=== PATIENT | female | born 1955 | race African-American/Black ===

== ENCOUNTER 2019-05-29 15:05 | Emergency (ER) | payer OTHER ==
[2019-05-29 15:22] VITALS: BP 120/70; BMI 32.4
[2019-05-29] MEDS ORDERED: ALBUTEROL SO4 HFA INHALER IH ONE ×2 (15:52→16:19)
[2019-05-29] MEDS ORDERED: methylPREDNISolone NA SUCC 125 MG/2 ML VIAL IVPB ONE (15:54)
[2019-05-29 16:05] VITALS: PULSE 96
[2019-05-29] MEDS ORDERED: methylPREDNISolone NA SUCC 125 MG/2 ML VIAL ONE (16:19)
[2019-05-29 16:34] LABS: BASO % 0.8 % (0-2.0); EOS % 1.4 % (0-4.5); HEMATOCRIT 32.3 % (32.4-45.2); HEMOGLOBIN 10.5 GM/dL (10.7-15.3); LYMPH % 13.7 % (8-40); MCH 30.6 pg (25.7-33.7); MCHC 32.4 g/dl (32.0-36.0); MEAN CELL VOLUME 94.3 fl (80-96); MEAN PLT VOLUME 8.5 fl (7.5-11.1); MONO % 5.1 % (3.8-10.2); PLATELET COUNT 240 K/MM3 (134-434); RBC 3.42 M/mm3 (3.60-5.2); RDW 13.7 % (11.6-15.6); WHITE BLOOD COUNT 11.7 K/mm3 (4.0-10.0)
[2019-05-29] MEDS ORDERED: ALBUTEROL SO4 2.5/IPRATROPIUM 0.5 INH SOL 3 ML VIAL.NEB. NEB ONE (16:43)
[2019-05-29 17:14] LABS: ALBUMIN 3.4 g/dl (3.4-5.0); ALK PHOS 92 U/L (45-117); ANION GAP 8 MMOL/L (8-16); BILIRUBIN,TOTAL 0.6 mg/dL (0.2-1); CALCIUM 9.3 mg/dL (8.5-10.1); CHLORIDE 108 mmol/L (98-107); CO2 25 mmol/L (21-32); CREATININE 1.4 mg/dL (0.55-1.3); GLUCOSE,RANDOM 102 mg/dL (74-106); POTASSIUM 5.5 mmol/L (3.5-5.1); SGOT/AST 31 U/L (15-37); SGPT/ALT 15 U/L (13-61); SODIUM 141 mmol/L (136-145); TOT PROT 7.4 g/dl (6.4-8.2)
[2019-05-29] MEDS ORDERED: ACETAMINOPHEN 325 MG TABLET (FP) ONE (18:32)
[2019-05-29] MEDS ORDERED: ACETAMINOPHEN 325 MG TABLET (FP) PO ONE (18:40)
[2019-05-29 18:41] VITALS: TEMP 100.2
== END 2019-05-29 22:07 | disposition home or self-care (01) ==
LOC: JER 15:05
PROC: 3E033GC Introduction of Other Therapeutic Substance into Peripheral Vein, Percutaneous Approach (ICD-10-PCS; principal; 2019-05-29)
PROC: 3E0F7GC Introduction of Other Therapeutic Substance into Respiratory Tract, Via Natural or Artificial Opening (ICD-10-PCS; principal; 2019-05-29)
DX: J44.1 Chronic obstructive pulmonary disease with (acute) exacerbation (principal)
CPT/HCPCS: 36415; 71045-TC-FY; 80053; 82550; 82553; 82962; 84484; 85025; 93005; 93010; 96374; 99285-25

== ENCOUNTER 2019-08-12 23:09 | Inpatient (IN) | payer OTHER ==
[2019-08-12] MEDS ORDERED: ACETAMINOPHEN 1000 MG/100 ML VIAL (NON FORMULARY) IVPB ONE (23:16)
[2019-08-12 23:24] VITALS: BMI 31.1
--- NOTE | 2019-08-12 23:30 | PDOC ---
Attending Attestation - Resident Resident Name: Elias Leon - ED Attending Attestation I have performed the following: I have examined & evaluated the patient, The case was reviewed & discussed with the resident, I agree w/resident's findings & plan - HPI HPI: 08/12/19 23:16 see resident hpi - Physicial Exam PE: 08/12/19 23:16 see resident exam - Critical Care Time Total Critical Care Time: 45 Critical Care Statement: The care of this patient involved high complexity decision making to prevent further life threatening deterioration of the patient's condition and/or to evaluate & treat vital organ system(s) failure or risk of failure. - Medical Decision Making 08/12/19 23:17 63[facility]-old [facility] with history of COPD and CHF with increasing shortness of breath requiring CPAP and route as well as Decadron 10 mg and a DuoNeb with minimal improvement We will proceed with CHF/COPD work-up as well as evaluation for infectious cause Will transfer to [facility] and plan for admission to inpatient service for further evaluation Discharge - Discharge Information Problems reviewed: Yes Clinical Impression/Diagnosis: Acute and chronic respiratory failure with hypoxia - Follow up/Referral Referrals: Fritz Chatterjee PHA [Primary Care Provider] - - Patient Discharge Instructions - Post Discharge Activity
--- NOTE | 2019-08-12 23:48 | PDOC ---
History of Present Illness - General Chief Complaint: Shortness of Breath Stated Complaint: SHORTNESS OF BREATH Time Seen by Provider: 08/12/19 23:16 History Source: Patient, EMS, Old Records Exam Limitations: No Limitations - History of Present Illness Initial Comments: 08/12/19 23:43 Keira Cruz is a 63F with PMH asthma, COPD, CHF, HTN, HLD presenting from [facility] with acute onset SOB and wheezing. Sent from [place] for SOB and hypoxia, found to be wheezing by EMS, given 1x Decadron and 2x Combivents in ambulance. Has not been getting home Lasix due to hypotension in [place]. Denies any fever, chest pain, abd pain, urinary sx, N/V/C/D. Has non-productive cough. No other covid-19 sx but from [place]. Was otherwise feeling okay yesterday. Past History - Medical History Allergies/Adverse Reactions: Allergies Allergy/AdvReac Type Severity Reaction Status Date / Time No Known Allergies Allergy Verified 08/12/19 23:24 Home Medications: Ambulatory Orders Baclofen 10 mg PO TID 05/29/19 Budesonide/Formeterol Fumarate [SYMBICORT 160/4.5mcg -] 2 inh PO BID 05/29/19 Diltiazem HCl [Diltiazem 24Hr ER (Cd)] 120 mg PO DAILY 05/29/19 Ergocalciferol (Vitamin D2) [Vitamin D2] 50,000 unit PO WEEKLY 05/29/19 Gabapentin [Neurontin] 600 mg PO TID 05/29/19 Ipratropium 0.02% Nebulizer [Atrovent 0.02% Nebulizer -] 1 neb NEB Q4H PRN 05/29/19 Lisinopril [Prinivil -] 40 mg PO DAILY 05/29/19 Melatonin 5 mg PO HS 05/29/19 Polyethylene Glycol 3350 [Miralax 119 gm Btl -] 17 gm PO DAILY 05/29/19 traZODone HCL [Trazodone HCl] 50 mg PO HS 05/29/19 Acetaminophen [Tylenol .Regular Strength -] 650 mg PO Q6H PRN tablet 06/09/19 Tiotropium [place] [Spiriva Respimat] 2 puff IH DAILY inhaler 06/09/19 Atorvastatin Ca [Lipitor] 20 mg PO HS 08/13/19 Furosemide 40 mg PO DAILY 08/13/19 Guaifenesin [Glenda-Tussin] 100 mg PO TID PRN 08/13/19 Insulin Glargine,Hum.rec.anlog [Basaglar Kwikpen U-100] 22 unit SQ DAILY 08/13/19 Insulin Lispro [Admelog Solostar] 100 unit SQ ASDIR 08/13/19 Lidocaine 5% Patch [Lidoderm Patch -] 1 patch TP DAILY 08/13/19 Naproxen 500 mg PO BID PRN 08/13/19 Sevelamer Carbonate [Renvela] 800 mg PO AC 08/13/19 Tramadol HCl 50 mg PO TID PRN 08/13/19 Asthma: Yes COPD: Yes Diabetes: Yes GI Disorders: Yes (cosntipation) Disorders: Yes (renal osteodystrophy) HTN: Yes Hypercholesterolemia: Yes Psychiatric Problems: Yes (major depressive behavior/imsomnia/nicotine dependence) - Psycho-Social/Smoking History Smoking History: Never smoked Have you smoked in the past 12 months: No - Substance Abuse Hx (Audit-C & DAST Scrn) How often the patient has a drink containing alcohol: Never Score: In Men: 4 or > Positive; In Women: 3 or > Positive: 0 Screen Result (Pos requires Nsg. Audit-10AR): Negative In the last yr the pt used illegal drug/Rx for NonMed reason: No Score: Yes response is considered Positive: 0 Screen Result (Positive result requires Nsg. DAST-10): Negative Review of Systems - Review of Systems Able to Perform ROS?: Yes Is the patient limited Mongolian proficient: Yes Constitutional: No: Chills, Fever HEENTM: No: Symptoms Reported Respiratory: Yes: Cough, Shortness of Breath, SOB with Exertion, SOB at Rest, Wheezing Cardiac (ROS): No: Chest Pain, Lightheadedness, Palpitations, Syncope ABD/GI: No: Constipated, Diarrhea, Nausea, Poor Appetite, Poor Fluid Intake, Vomiting : No: Symptoms Reported Musculoskeletal: No: Symptoms Reported Integumentary: No: Symptoms Reported Neurological: No: Symptoms reported Endocrine: No: Symptoms Reported Hematologic/Lymphatic: No: Symptoms Reported All Other Systems: Reviewed and Negative *Physical Exam - Vital Signs Last Vital Signs Temp Pulse Resp BP Pulse Ox 98.1 F 115 H 17 104/70 99 07/07/20 23:10 08/12/19 23:10 08/12/19 23:10 08/12/19 23:10 08/12/19 23:10 - Physical Exam General Appearance: Yes: Nourished, Appropriately Dressed, Moderate Distress, Obese HEENT: positive: EOMI, JAIME, Normal Voice, Symmetrical, Pharynx Normal. negative: Scleral Icterus (R), Scleral Icterus (L), Pharyngeal Erythema, To nsillar Exudate, Excessive drooling Neck: positive: Trachea midline, Normal Thyroid, Rigid, Supple. negative: Tender, Lymphadenopathy (R), Lymphadenopathy (L), Tender lateral, Tender midline Respiratory/Chest: positive: Labored Respiration, Rapid RR, Wheezing (end expiratory all andino). negative: Chest Tender, Lungs Clear, Respiratory Distress, Accessory Muscle Use Cardiovascular: positive: Regular Rhythm, Tachycardia. negative: Murmur, Irregularly Irregular Gastrointestinal/Abdominal: positive: Normal Bowel Sounds, Soft, Protuberent. negative: Tender, Organomegaly, Tenderness, Hernia Musculoskeletal: positive: Normal Inspection. negative: CVA Tenderness, CVA T enderness (R), CVA Tenderness (L), Decreased Range of Motion Extremity: positive: Normal Capillary Refill, Normal Range of Motion, Swelling. negative: Tender, Delayed Capillary Refill, Calf Tenderness, Erythema Integumentary: positive: Normal Color, Dry, Warm Neurologic: positive: Fully Oriented, Alert, Normal Mood/Affect, Normal Response, Motor Strength 5/5 ED Treatment Course - LABORATORY CBC & Chemistry Diagram: 08/13/19 01:35 08/13/19 01:38 Medical Decision Making - Medical Decision Making 08/12/19 23:45 Patient is a 63F with PMH asthma/COPD, CHF with Lasix withheld 2/2 hypotension, now here from [place] for SOB. Already given Decadron and Combivents in ambulance, lungs wheezy with BLE 3+ edema concerning for CHF exacerbation and COPD exacerbation. Ordered sepsis labs with BNP and ABG, will further evaluate with CXR and ECG and will likely start diuresis and admit for CHF/COPD exacerbation. 08/13/19 00:02 ECG shows sinus tachycardia with HR 103, QTc 453, TWI I/II/aVL/V4-V6, no CHAITANYA/D. BP 113/74, MAP 77, too soft for Lasix. Initial ABG shows pH 7.29, CO2 52.4, O2 30 Started on BiPAP settings 15/5/16/40%. Repeat ABG sent, pH 7.354, CO2 43.8, O2 143.9 Labs notable for: - WBC 15.1 - Hgb 9.4 - BNP 21.2 - Cr 1.7 up from 1.1 Has KD and mild WBC elevation. Bedside US shows mild B-Lines in lungs without R heart strain or pericardial effusion on ECHO. No pulmonary edema on CXR, no indication for Lasix. Giving azithromycin for COPD exacerbation and admitting to tele. 08/13/19 04:[address] Zheng with admitting team, good for admission to tele under Dr. Castle. Discharge - Discharge Information Problems reviewed: Yes Clinical Impression/Diagnosis: Acute and chronic respiratory failure with hypoxia, KD (acute kidney injury) Condition: Fair - Admission Yes - Follow up/Referral - Patient Discharge Instructions - Post Discharge Activity
[2019-08-12 23:52] LABS: ARTERIAL BLD GAS O2 SATURATION 50.5 mmHg (95-98); ARTERIAL BLOOD GAS BASE EXCESS -1.8 mmol/L (-2-2); ARTERIAL BLOOD GAS pH 7.298 (7.350-7.450)
[2019-08-12 23:57] LABS: ARTERIAL BLOOD GAS PO2 30.2 mmHg (80-100)
[2019-08-13] MEDS ORDERED: ACETAMINOPHEN INJECTION 100 ML IVPB ONE (00:27)
[2019-08-13 01:51] LABS: ARTERIAL BLD GAS O2 SATURATION 98.7 mmHg (95-98); ARTERIAL BLOOD GAS BASE EXCESS -1.6 mmol/L (-2-2); ARTERIAL BLOOD GAS PO2 143.9 mmHg (80-100); ARTERIAL BLOOD GAS pH 7.354 (7.350-7.450)
[2019-08-13 01:52] LABS: VENT MODE S/T; VENT RATE 16
[2019-08-13 02:14] LABS: BASO % 0.3 % (0-2.0); EOS % 0.8 % (0-4.5); HEMATOCRIT 30.4 % (32.4-45.2); HEMOGLOBIN 9.4 GM/dL (10.7-15.3); LYMPH % 4.3 % (8-40); MCH 29.5 pg (25.7-33.7); MEAN CELL VOLUME 95.3 fl (80-96); MEAN PLT VOLUME 8.4 fl (7.5-11.1); MONO % 2.9 % (3.8-10.2); NEUT % 91.7 % (42.8-82.8); PLATELET COUNT 269 K/MM3 (134-434); RBC 3.19 M/mm3 (3.60-5.2); RDW 15.1 % (11.6-15.6); WHITE BLOOD COUNT 15.1 K/mm3 (4.0-10.0)
[2019-08-13 02:21] LABS: INR 0.97 (0.83-1.09); PROTHROMBIN TIME (PATIENT) 11.5 SEC (9.7-13.0)
[2019-08-13 02:24] LABS: ACTIVATED PTT 31.8 SECONDS (25.2-36.5)
[2019-08-13 02:37] LABS: ALBUMIN 3.1 g/dl (3.4-5.0); BILIRUBIN,TOTAL 0.5 mg/dL (0.2-1); BLOOD UREA NITROGEN 44.5 mg/dL (7-18); CALCIUM 9.2 mg/dL (8.5-10.1); CREATININE 1.7 mg/dL (0.55-1.3); POTASSIUM 4.9 mmol/L (3.5-5.1); TOT PROT 6.8 g/dl (6.4-8.2)
[2019-08-13] MEDS ORDERED: AZITHROMYCIN IVPB 500 MG in DEXTROSE 5%-WATER - 250 ML IVPB ONE (03:16)
[2019-08-13] MEDS ORDERED: CEFTRIAXONE 0 GM/0 ML BAG ONE (03:33)
[2019-08-13 04:15] LABS: ANISOCYTOSIS 1+; MACROCYTOSIS 0; PLATELET ESTIMATE NORMAL
[2019-08-13] MEDS ORDERED: AZITHROMYCIN IVPB 500 MG/250 ML BAG IVPB ONE (04:19)
--- NOTE | 2019-08-13 04:33 | PN ---
Teaching Attending Note Name of Resident: James Saha ATTENDING PHYSICIAN STATEMENT I saw and evaluated the patient. I reviewed the resident's note and discussed the case with the resident. I agree with the resident's findings and plan as documented. SUBJECTIVE: Patient is a 63 year old woman from [facility] with a PM H of Asthma, Insulin-treated DM, CKD, Right hip osteoarthritis, COPD, Major depressive disorder, Tobacco use, ?HFpEF (LVEF 50-55%; ECHO 06/02/2019), HTN and HLD presenting with acute onset of SOB, hypoxia and wheezing. En route treated with CPAP by EMS and also got Decadron 10 mg and Combivents x 2. Has not been taking home Lasix due to hypotension in [place]. Denies fever, chills, chest pain, abdominal pain, dysuria, frequency, diarrhea, nausea or vomiting. Tested negative for COVID-19 on 05/31/2019. Denies alcohol or illicit drug use. No sick contacts or recent travels. Family history is unremarkable. OBJECTIVE: Alert Vital Signs Period Temp Pulse Resp BP Sys/Garcia Pulse Ox Last 24 Hr 98.1 F-99.1 F 86-115 16-17 104-110/65-70 93-100 HEENT: No Jaundice, eye redness or discharge, PERRLA, EOMI. Normocephalic, atraumatic. External ears are normal and hearing is grossly intact. No nasal discharge. Neck: Supple, nontender. No palpable adenopathy or thyromegaly. No JVD Chest: Good effort. Clear to auscultation and percussion. Heart: Regular. No S3, rub or murmur Abdomen: Not distended, soft, nontender and no HSM. No rebound or guarding. Normal bowel sounds. Ext: Peripheral pulses intact. No leg edema. Skin: Warm and dry. No petechiae, rash or ecchymosis. Neuro: Alert. Oriented x3. CN 2-12 grossly intact. Sensation grossly intact in all four extremities and DTR are symmetric. Psych: Appropriate mood and affect. Good insight. Home Medications Medication Instructions Recorded Baclofen 10 mg PO TID 05/29/19 Budesonide/Formeterol Fumarate 2 inh PO BID 05/29/19 [SYMBICORT 160/4.5mcg -] Diltiazem HCl [Diltiazem 24Hr ER 120 mg PO DAILY 05/29/19 (Cd)] Ergocalciferol (Vitamin D2) 50,000 unit PO WEEKLY 05/29/19 [Vitamin D2] Gabapentin [Neurontin] 600 mg PO TID 05/29/19 Ipratropium 0.02% Nebulizer 1 neb NEB Q4H PRN 05/29/19 [Atrovent 0.02% Nebulizer -] Lisinopril [Prinivil -] 40 mg PO DAILY 05/29/19 Melatonin 5 mg PO HS 05/29/19 Polyethylene Glycol 3350 [Miralax 17 gm PO DAILY 05/29/19 119 gm Btl -] traZODone HCL [Trazodone HCl] 50 mg PO HS 05/29/19 Acetaminophen [Tylenol .Regular 650 mg PO Q6H PRN tablet 06/09/19 Strength -] Tiotropium [place] [Spiriva 2 puff IH DAILY inhaler 06/09/19 Respimat] Atorvastatin Ca [Lipitor] 20 mg PO HS 08/13/19 Furosemide 40 mg PO DAILY 08/13/19 Guaifenesin [Glenda-Tussin] 100 mg PO TID PRN 08/13/19 Insulin Glargine,Hum.rec.anlog 22 unit SQ DAILY 08/13/19 [Basaglar Kwikpen U-100] Insulin Lispro [Admelog Solostar] 100 unit SQ ASDIR 08/13/19 Lidocaine 5% Patch [Lidoderm Patch 1 patch TP DAILY 08/13/19 -] Naproxen 500 mg PO BID PRN 08/13/19 Sevelamer Carbonate [Renvela] 800 mg PO AC 08/13/19 Tramadol HCl 50 mg PO TID PRN 08/13/19 Abnormal Lab Results 08/12/19 08/13/19 08/13/19 23:25 01:22 01:35 WBC 15.1 H RBC 3.19 L Hgb 9.4 L Hct 30.4 L MCHC 31.0 L Absolute Neuts (auto) 13.9 H Neutrophils % 91.7 H Neutrophils % (Manual) 86.5 H Lymphocytes % 4.3 L D Lymphocytes % (Manual) 5.2 L D Monocytes % 2.9 L Monocytes % (Manual) 2 L ABG pH 7.298 L ABG pCO2 52.30 H ABG pO2 30.2 L* 143.9 H ABG O2 Sat (Measured) 50.5 L 98.7 H BUN Creatinine Random Glucose AST Albumin 08/13/19 01:38 WBC RBC Hgb Hct MCHC Absolute Neuts (auto) Neutrophils % Neutrophils % (Manual) Lymphocytes % Lymphocytes % (Manual) Monocytes % Monocytes % (Manual) ABG pH ABG pCO2 ABG pO2 ABG O2 Sat (Measured) BUN 44.5 H Creatinine 1.7 H Random Glucose 152 H AST 11 L Albumin 3.1 L ASSESSMENT AND PLAN: 1. COPD Exacerbation/Acute hypoxic respiratory failure - No obvious precipitating factor. Was started on supplemental oxygen via non- rebreather mask and switched to BiPAP. CXR shows cardiomegaly with no evidence of acute lung disease. ECHO from 06/02/2019 showed LV is normal in size, LV systolic function is low normal, LVEF of 50-55% and grade 1 diastolic dysfunction. EKG today shows sinus tachycardia at 103/minute and QTc 453, T wave inversion in I, II, aVL, V4-V6 with no significant ST changes - changed compared to prior EKG. Initial troponin is negative. Will monitor on telemetry, get D-dimer, repeat troponin and EKG and ask Cardiology whether Cardiazem is "okay" in this patient with her borderline LVEF. Viral testing for COVID-19 ordered and patient placed on airborne, droplet and contact isolation. Will restrict dietary salt intake, monitor renal function, monitor and replete electrolytes and get daily weight. Will treat patient with Solumedrol 60 mg q 8 hours, Xopenex, Symbicort, IV Rocephin and Azithromycin, Tylenol PRN and consult ID. Will continue comprehensive care for all of patients comorbid conditions. 2. Hypoalbuminemia - Possibly due to combined effects of malnutrition and inflammation associated with comorbid conditions. Will ensure adequate dietary protein intake and also consult towel stretcher. 3. DM For now, we will hold the home diabetes drugs and implement sliding scale insulin regimen. Provide comprehensive diabetes care with patient teaching and counseling about the importance of adherence to prescribed diabetes regimen, euglycemia, eye care and foot care. 4. Tobacco Use Counseled on risks associated with tobacco use. We will provide patient all the necessary assistance to facilitate smoking cessation and prescribe Nicotine patch. 5. CKD Will get kidney sonogram, monitor urine output and consult Nephrology. Avoid nephrotoxic agents such as NSAIDS, aminoglycosides, contrast dyes and certain Alternative medicine products. 6. Anemia - Likely partly due to CKD. Will do basic anemia work up including serial stool guaiacs, reticulocyte count and iron studies. 7. Obesity Counseled on the risks associated with obesity. Will provide patient all the necessary assistance, counseling and positive reinforcement to facilitate weight loss. Consult towel stretcher. 8. Hypertension Hold antihypertensive medications. Will restart suitable outpatient antihypertensive drugs only when clinically appropriate. Subsequently, will revise regimen to ensure [id number] excellent BP control. Patient counseled on the injurious effects of uncontrolled hypertension. Nonpharmacologic measures to control hypertension like weight loss, salt restriction and exercise stressed. Importance of adherence to treatment regimen and attainment of normotension emphasized. 9. DVT prophylaxis - Heparin 5000u sq tid. 10. Advance directives - Full code
[2019-08-13] MEDS ORDERED: ALBUTEROL SO4 2.5/IPRATROPIUM 0.5 INH SOL 3 ML VIAL.NEB. NEB PRN (05:59)
--- NOTE | 2019-08-13 06:02 | HP ---
CHIEF COMPLAINT: Pt is a 63 yo F with PMHx of asthma, COPD, CHF, HTN and HLD from [facility]. Presenting with acute onset of SOB, reported hypoxia and significant wheezing. Pt was treated with 1x decadron and 2x combivents with not much improvement to her symptoms. Pt has not been taking home Lasix due to hypotension and KD at her halfway. Pt denies fever, chills, chest pain, N/V, bowel changes, abdominal pain, or diarrhea. Admits to "few" days of constipation. Pt denies any recent travel or sick contacts. PCP: Dr. Fritz Chatterjee HISTORY OF PRESENT ILLNESS: ER course was notable for: (1) Azithromycin (2) BiPAP improved ABG, switched to 2LNC (3) EKG showed T wave inversions, no ST changes Recent Travel: Denies PAST MEDICAL HISTORY: As above PAST SURGICAL HISTORY: Arthroscopic knee surgery 30+ years ago Social History: Smokin year history; quit 6 months ago Alcohol: Denies Drugs: Allergies No Known Allergies Allergy (Verified 08/12/19 23:24) HOME MEDICATIONS: Home Medications Medication Instructions Recorded Baclofen 10 mg PO TID 05/29/19 Budesonide/Formeterol Fumarate 2 inh PO BID 05/29/19 [SYMBICORT 160/4.5mcg -] Diltiazem HCl [Diltiazem 24Hr ER 120 mg PO DAILY 05/29/19 (Cd)] Ergocalciferol (Vitamin D2) 50,000 unit PO WEEKLY 05/29/19 [Vitamin D2] Gabapentin [Neurontin] 600 mg PO TID 05/29/19 Ipratropium 0.02% Nebulizer 1 neb NEB Q4H PRN 05/29/19 [Atrovent 0.02% Nebulizer -] Lisinopril [Prinivil -] 40 mg PO DAILY 05/29/19 Melatonin 5 mg PO HS 05/29/19 Polyethylene Glycol 3350 [Miralax 17 gm PO DAILY 05/29/19 119 gm Btl -] traZODone HCL [Trazodone HCl] 50 mg PO HS 05/29/19 Acetaminophen [Tylenol .Regular 650 mg PO Q6H PRN tablet 06/09/19 Strength -] Tiotropium Hardy [Spiriva 2 puff IH DAILY inhaler 06/09/19 Respimat] Atorvastatin Ca [Lipitor] 20 mg PO HS 08/13/19 Furosemide 40 mg PO DAILY 08/13/19 Guaifenesin [Glenda-Tussin] 100 mg PO TID PRN 08/13/19 Insulin Glargine,Hum.rec.anlog 22 unit SQ DAILY 08/13/19 [Basaglar Kwikpen U-100] Insulin Lispro [Admelog Solostar] 100 unit SQ ASDIR 08/13/19 Lidocaine 5% Patch [Lidoderm Patch 1 patch TP DAILY 08/13/19 -] Naproxen 500 mg PO BID PRN 08/13/19 Sevelamer Carbonate [Renvela] 800 mg PO AC 08/13/19 Tramadol HCl 50 mg PO TID PRN 08/13/19 REVIEW OF SYSTEMS CONSTITUTIONAL: Absent: fever, chills, diaphoresis, generalized weakness, malaise, loss of appetite, weight change HEENT: Absent: rhinorrhea, nasal congestion, throat pain, throat swelling, difficulty swallowing, mouth swelling, ear pain, eye pain, visual changes CARDIOVASCULAR: Absent: chest pain, syncope, palpitations, irregular heart rate, lightheadedness, peripheral edema RESPIRATORY: Admits wheezing, SOB, SANDOAVL, productive cough with green-yellow sputum Absent: orthopnea, wheezing, stridor, hemoptysis GASTROINTESTINAL: Admits constipation 2 days Absent: abdominal pain, abdominal distension, nausea, vomiting, diarrhea, melena, hematochezia GENITOURINARY: Absent: dysuria, frequency, urgency, hesitancy, hematuria, flank pain, genital pain MUSCULOSKELETAL: Pitting edema in BLE Absent: myalgia, arthralgia, joint swelling, back pain, neck pain SKIN: Absent: rash, itching, pallor HEMATOLOGIC/IMMUNOLOGIC: Absent: easy bleeding, easy bruising, lymphadenopathy, frequent infections ENDOCRINE: Absent: unexplained weight gain, unexplained weight loss, heat intolerance, cold intolerance NEUROLOGIC: Absent: headache, focal weakness or paresthesias, dizziness, unsteady gait, seizure, mental status changes, bladder or bowel incontinence PSYCHIATRIC: Absent: anxiety, depression, suicidal or homicidal ideation, hallucinations. PHYSICAL EXAMINATION Vital Signs - 24 hr 08/12/19 08/13/19 08/13/19 23:10 00:45 01:06 Temperature 98.1 F 99.1 F Pulse Rate 115 H Pulse Rate [ Radial] Respiratory 17 Rate Blood Pressure 104/70 Blood Pressure [Right Arm] O2 Sat by Pulse 99 100 Oximetry (%) 08/13/19 08/13/19 08/13/19 01:45 02:41 03:17 Temperature Pulse Rate 108 H Pulse Rate [ 86 Radial] Respiratory 16 Rate Blood Pressure Blood Pressure 110/65 [Right Arm] O2 Sat by Pulse 99 95 93 L Oximetry (%) GENERAL: Awake, alert, and fully oriented, in moderate distress. HEAD: Normal with no signs of trauma. EYES: Pupils equal, round and reactive to light, extraocular movements intact, sclera anicteric, conjunctiva clear. No lid lag. EARS, NOSE, THROAT: Ears normal, nares patent, oropharynx clear without exudates. Moist mucous membranes. NECK: Normal range of motion, supple without lymphadenopathy, JVD, or masses. LUNGS: Wheezing in all areas of lung. No crackles. No accessory muscle use. HEART: Regular rate and rhythm, normal S1 and S2 without murmur, rub or gallop. ABDOMEN: Soft, nontender, not distended, normoactive bowel sounds, no guarding, no rebound, no masses. No hepatomegaly or splenomegaly. MUSCULOSKELETAL: Normal range of motion at all joints. No bony deformities or tenderness. No CVA tenderness. UPPER EXTREMITIES: 2+ pulses, warm, well-perfused. No cyanosis. No clubbing. No peripheral edema. LOWER EXTREMITIES: 2+ pulses, warm, well-perfused. No calf tenderness. Pitting edema in BLE. NEUROLOGICAL: Cranial nerves II-XII intact. Normal speech. Normal gait. PSYCHIATRIC: Cooperative. Good eye contact. Appropriate mood and affect. SKIN: Warm, dry, normal turgor, no rashes or lesions noted, normal capillary refill. Laboratory Results - last 24 hr 08/12/19 08/13/19 08/13/19 23:25 00:35 01:22 WBC RBC Hgb Hct MCV MCH MCHC RDW Plt Count MPV Absolute Neuts (auto) Neutrophils % Neutrophils % (Manual) Band Neutrophils % Lymphocytes % Lymphocytes % (Manual) Monocytes % Monocytes % (Manual) Eosinophils % Eosinophils % (Manual) Basophils % Basophils % (Manual) Myelocytes % (Man) Promyelocytes % (Man) Blast Cells % (Manual) Nucleated RBC % Metamyelocytes Hypochromia Platelet Estimate Polychromasia Poikilocytosis Basophilic Stippling Anisocytosis Microcytosis Macrocytosis PT with INR INR PTT (Actin FS) Anticoagulation Therapy No Result Required. No Result Required. Puncture Site No Result Required. No Result Required. Patient Temperature No Result Required. No Result Required. ABG pH 7.298 L 7.354 ABG pCO2 52.30 H 43.80 ABG pO2 30.2 L* 143.9 H ABG HCO3 25.0 23.9 ABG O2 Sat (Measured) 50.5 L 98.7 H ABG O2 Content No Result Required. No Result Required. ABG Base Excess -1.8 -1.6 Dandre Test No Result Required. No Result Required. Patient On Oxygen Yes Yes O2 Delivery Device Nrb mask Bipap Oxygen Flow Rate 100% 40% Vent Mode No Result Required. S/t Vent Rate No Result Required. 16 Mechanical Rate No Result Required. Bipap PEEP No Result Required. No Result Required. Pressure Support Vent No Result Required. 15/5 Sodium Potassium Chloride Carbon Dioxide Anion Gap BUN Creatinine Est GFR (CKD-EPI)AfAm Est GFR (CKD-EPI)NonAf Random Glucose Lactic Acid 1.8 Calcium Total Bilirubin AST ALT Alkaline Phosphatase Creatine Kinase CK-MB (CK-2) Troponin I B-Natriuretic Peptide Total Protein Albumin 08/13/19 08/13/19 08/13/19 01:35 01:35 01:35 WBC RBC Hgb Hct MCV MCH MCHC RDW Plt Count MPV Absolute Neuts (auto) Neutrophils % Neutrophils % (Manual) Band Neutrophils % Lymphocytes % Lymphocytes % (Manual) Monocytes % Monocytes % (Manual) Eosinophils % Eosinophils % (Manual) Basophils % Basophils % (Manual) Myelocytes % (Man) Promyelocytes % (Man) Blast Cells % (Manual) Nucleated RBC % Metamyelocytes Hypochromia Platelet Estimate Polychromasia Poikilocytosis Basophilic Stippling Anisocytosis Microcytosis Macrocytosis PT with INR 11.50 INR 0.97 PTT (Actin FS) 31.8 Anticoagulation Therapy Puncture Site Patient Temperature ABG pH ABG pCO2 ABG pO2 ABG HCO3 ABG O2 Sat (Measured) ABG O2 Content ABG Base Excess Dandre Test Patient On Oxygen O2 Delivery Device Oxygen Flow Rate Vent Mode Vent Rate Mechanical Rate PEEP Pressure Support Vent Sodium Potassium Chloride Carbon Dioxide Anion Gap BUN Creatinine Est GFR (CKD-EPI)AfAm Est GFR (CKD-EPI)NonAf Random Glucose Lactic Acid Calcium Total Bilirubin AST ALT Alkaline Phosphatase Creatine Kinase CK-MB (CK-2) Troponin I < 0.02 B-Natriuretic Peptide 21.2 Total Protein Albumin 08/13/19 08/13/19 01:35 01:38 WBC 15.1 H RBC 3.19 L Hgb 9.4 L Hct 30.4 L MCV 95.3 MCH 29.5 MCHC 31.0 L RDW 15.1 D Plt Count 269 MPV 8.4 Absolute Neuts (auto) 13.9 H Neutrophils % 91.7 H Neutrophils % (Manual) 86.5 H Band Neutrophils % 6.2 Lymphocytes % 4.3 L D Lymphocytes % (Manual) 5.2 L D Monocytes % 2.9 L Monocytes % (Manual) 2 L Eosinophils % 0.8 D Eosinophils % (Manual) 0.0 Basophils % 0.3 Basophils % (Manual) 0.0 Myelocytes % (Man) 0 Promyelocytes % (Man) 0 Blast Cells % (Manual) 0 Nucleated RBC % 0 Metamyelocytes 0 D Hypochromia 1+ Platelet Estimate Normal Polychromasia 1+ Poikilocytosis 0 Basophilic Stippling 2+ Anisocytosis 1+ Microcytosis 1+ Macrocytosis 0 PT with INR INR PTT (Actin FS) Anticoagulation Therapy Puncture Site Patient Temperature ABG pH ABG pCO2 ABG pO2 ABG HCO3 ABG O2 Sat (Measured) ABG O2 Content ABG Base Excess Dandre Test Patient On Oxygen O2 Delivery Device Oxygen Flow Rate Vent Mode Vent Rate Mechanical Rate PEEP Pressure Support Vent Sodium 139 Potassium 4.9 Chloride 105 Carbon Dioxide 25 Anion Gap 9 BUN 44.5 H Creatinine 1.7 H Est GFR (CKD-EPI)AfAm 36.56 Est GFR (CKD-EPI)NonAf 31.54 Random Glucose 152 H Lactic Acid Calcium 9.2 Total Bilirubin 0.5 AST 11 L ALT 17 Alkaline Phosphatase 92 Creatine Kinase 96 CK-MB (CK-2) 1.6 Troponin I B-Natriuretic Peptide Total Protein 6.8 Albumin 3.1 L ASSESSMENT/PLAN: Pt is a 63 yoF with PMHx of asthma, COPD, CHF, HTN, HLD presenting with acute onset SOB and wheezing for 2 days living at halfway. Pt was found reported hypoxic with wheezing, so brought to ED and given 1x decadron and 2x combivent in ambulance. Improved ABG on BiPAP so switched to 2L NC and sat 93%. #Acute hypoxic respiratory failure - Receiving azithromycin from ED, also add Rocephin - Solumeterol 60q8 - Symbicort - Duonebs standing + PRN - BiPAP initially, ABG improved and switched to 2L NC - continue 2L NC PRN, substitute to BiPAP if needed - Repeat EKG; T wave inversions seen - consulted Cardio - D-dimer to evaluate for possiblity of PE; order CTA if elevated - COVID pending - Consult pulm #KD on CKD - Cr 1.7; baseline 1.1-1.2 - Hold lasix - Kidney ultrasound ordered - Consult nephro #DM - On Insulin glargine 22u and Lispro 100u at home - Blood glucose 152; could be secondary to decadron received in EMS - Sliding scale insulin and blood glucose monitor - A1c #Anemia - H/H 9.06/04.4 - Anemia workup ordered: ferritin, reticulocyte count, Iron-TIBC #Obesity - Counseled on risks of obesity - Consulted supervisor frame sample and pattern #Hx of HTN - Hold Lasix until stabilized; start on IV lasix - Trop negative x1 - Discuss with cardio if Cardizem is appropriate for patient with borderline LVEF (Echo from 06/02/2019 has LVEF 55-60%) - Consulted cardio DVT prophylaxis Heparin 5000u SQ TID FEN - Encourage PO hydration with fluid restriction - Sodium and fat controlled diet - Monitor electrolytes in AM labs Dispo: Admit pt to tele, started on rocephin, azithromycin, solumeterol, duonebs for acute COPD exacerbation. Continue on 2L NC . Consulted cardio and pulm. D-dimer ordered, f/u with CTA if elevated. Discuss use of home cardizem with cardio for borderline LVEF 55-60% based on Entresto trial. Family Medical History Family History: Unremarkable (unremarkable) Problem List - Problem (1) Hip osteoarthritis Code(s): M16.9 - OSTEOARTHRITIS OF HIP, UNSPECIFIED (2) Renal insufficiency Code(s): N28.9 - DISORDER OF KIDNEY AND URETER, UNSPECIFIED (3) Uncontrolled blood glucose Code(s): R73.09 - OTHER ABNORMAL GLUCOSE (4) COPD exacerbation Code(s): J44.1 - CHRONIC OBSTRUCTIVE PULMONARY DISEASE W (ACUTE) EXACERBATION Visit type - Emergency Visit Emergency Visit: Yes ED Registration Date: 08/13/19 Care time: The patient presented to the Emergency Department on the above date and was hospitalized for further evaluation of their emergent condition. - New Patient This patient is new to me today: Yes Date on this admission: 08/13/19 - Critical Care Critical Care patient: No ATTENDING PHYSICIAN STATEMENT I saw and evaluated the patient. I reviewed the resident's note and discussed the case with the resident. I agree with the resident's findings and plan as documented. SUBJECTIVE: OBJECTIVE: ASSESSMENT AND PLAN:
[2019-08-13] MEDS ORDERED: methylPREDNISolone NA SUCC 125 MG/2 ML VIAL ONE (06:12)
[2019-08-13] MEDS: methylPREDNISolone NA SUCC 40 MG/1 ML VIAL IVPUSH SCH ×3 (06:15→22:25)
[2019-08-13] MEDS ORDERED: LEVALBUTEROL HCL 0.31 MG/3 ML VIAL.NEB IH SCH (08:00)
[2019-08-13] MEDS: INSULIN SLIDING SCALE (NOVOLOG) 1 VIAL SQ SCH ×4 (08:17→22:24)
[2019-08-13] MEDS: HEPARIN NA (PORCINE) 5,000 UNITS/ML 1ML VIAL SQ SCH ×3 (08:18→22:24)
[2019-08-13] MEDS ORDERED: HEPARIN NA (PORCINE) 5,000 UNITS/ML 1ML VIAL ONE ×2 (08:19→13:09)
[2019-08-13] MEDS: ALBUTEROL SO4 2.5/IPRATROPIUM 0.5 INH SOL 3 ML VIAL.NEB. NEB SCH ×3 (08:54→21:00)
[2019-08-13 09:07] LABS: URINE APPEARANCE CLOUDY; URINE BILIRUBIN NEGATIVE (NEGATIVE); URINE COLOR YELLOW; URINE GLUCOSE (UA) NEGATIVE (NEGATIVE); URINE KETONE NEGATIVE (NEGATIVE); URINE LEUK ESTERASE 2+ (NEGATIVE); URINE NITRITE NEGATIVE (NEGATIVE); URINE PROTEIN NEGATIVE (NEGATIVE); URINE UROBILINOGEN 0.2 mg/dL (0.2-1.0); YEAST REVIEW (NEGATIVE)
[2019-08-13] MEDS ORDERED: PT OWN MED DRAWER 7, Y5N ONE (09:15)
[2019-08-13] MEDS ORDERED: CEFTRIAXONE 1 GM/50 ML BAG ONE (09:27)
[2019-08-13] MEDS: CEFTRIAXONE 1 GM in DEXTROSE 5%-WATER - 50 ML IVPB SCH (09:28)
[2019-08-13 09:59] LABS: IRON SERUM 18 ug/dL (50-175); TOTAL IRON BINDING CAPACITY 388 ug/dL (250-450)
--- NOTE | 2019-08-13 10:39 | EKG ---
Test Reason : Blood Pressure : / mmHG Vent. Rate : 103 BPM Atrial Rate : 103 BPM P-R Int : 162 ms QRS Dur : 100 ms QT Int : 346 ms P-R-T Axes : 055 015 148 degrees QTc Int : 453 ms SINUS TACHYCARDIA ABNORMAL ECG WHEN COMPARED WITH ECG OF 31-MAY-2019 07:02, PREMATURE ATRIAL COMPLEXES ARE NO LONGER PRESENT Confirmed by MD Mina Daniel ([id number]) on 08/13/2019 10:39:11 AM Referred By: Confirmed By:Car Mina MD
[2019-08-13] MEDS: BUDESONIDE/FORMETEROL FUMARATE 160/4.5 mcg INHALER IH SCH ×2 (10:40→22:00)
--- NOTE | 2019-08-13 11:06 | CON.CARD ---
Consult Consult Specialty:: Cardiology Reason for Consultation:: CHF on cardizem with borderline EF - History of Present Illness History of Present Illness: This is a 63 year old female with a PMH of asthma, COPD, CHF, HTN, and HLD. She presented from [facility] with acute onset of SOB, wheezing, and hypoxia. She received decadron and Combivent. Although written for Lasix, she was not receiving Lasix because of low blood pressures. Trops negative. BNP 21.2 Last Echocardiogram 06/02/2019: Normal LV size EF 50 -55% Mild MR Mild TR - Past Medical History Cardio/Vascular: Yes: CHF, HTN Pulmonary: Yes: Asthma, COPD Psych: Yes: Depression - Alcohol/Substance Use Hx Alcohol Use: No - Smoking History Smoking history: Never smoked Have you smoked in the past 12 months: No Home Medications - Allergies Allergies/Adverse Reactions: Allergies Allergy/AdvReac Type Severity Reaction Status Date / Time No Known Allergies Allergy Verified 08/12/19 23:24 - Home Medications Home Medications: Ambulatory Orders Baclofen 10 mg PO TID 05/29/19 Budesonide/Formeterol Fumarate [SYMBICORT 160/4.5mcg -] 2 inh PO BID 05/29/19 Diltiazem HCl [Diltiazem 24Hr ER (Cd)] 120 mg PO DAILY 05/29/19 Ergocalciferol (Vitamin D2) [Vitamin D2] 50,000 unit PO WEEKLY 05/29/19 Gabapentin [Neurontin] 600 mg PO TID 05/29/19 Ipratropium 0.02% Nebulizer [Atrovent 0.02% Nebulizer -] 1 neb NEB Q4H PRN 05/29/19 Lisinopril [Prinivil -] 40 mg PO DAILY 05/29/19 Melatonin 5 mg PO HS 05/29/19 Polyethylene Glycol 3350 [Miralax 119 gm Btl -] 17 gm PO DAILY 05/29/19 traZODone HCL [Trazodone HCl] 50 mg PO HS 05/29/19 Acetaminophen [Tylenol .Regular Strength -] 650 mg PO Q6H PRN tablet 06/09/19 Tiotropium Auberry [Spiriva Respimat] 2 puff IH DAILY inhaler 06/09/19 Atorvastatin Ca [Lipitor] 20 mg PO HS 08/13/19 Furosemide 40 mg PO DAILY 08/13/19 Guaifenesin [Glenda-Tussin] 100 mg PO TID PRN 08/13/19 Insulin Glargine,Hum.rec.anlog [Basaglar Nilamikpen U-100] 22 unit SQ DAILY Insulin Lispro [Admelog Solostar] 100 unit SQ ASDIR 08/13/19 Lidocaine 5% Patch [Lidoderm Patch -] 1 patch TP DAILY 08/13/19 Naproxen 500 mg PO BID PRN 08/13/19 Sevelamer Carbonate [Renvela] 800 mg PO AC 08/13/19 Tramadol HCl 50 mg PO TID PRN 08/13/19 Vital Signs: Vital Signs Temperature 99.1 F 08/13/19 01:06 Pulse Rate 82 08/13/19 09:06 Respiratory Rate 18 08/13/19 07:39 Blood Pressure 128/72 08/13/19 09:06 O2 Sat by Pulse Oximetry (%) 98 08/13/19 07:39 Constitutional: Yes: No Distress Eyes: Yes: WNL HENT: Yes: WNL Neck: Yes: WNL Respiratory: Yes: Wheezes Gastrointestinal: Yes: Soft Cardiovascular: Yes: Regular Rate and Rhythm Heart Sounds: Yes: S1, S2 Edema: No Neurological: Yes: Alert - Other Data Labs, Other Data: CBC, BMP 08/13/19 01:35 08/13/19 01:38 INR, PTT INR 0.97 (0.83-1.09) 08/13/19 01:35 Troponin, BNP 08/13/19 08/13/19 08/13/19 01:35 01:35 08:50 Troponin I < 0.02 < 0.02 B-Natriuretic Peptide 21.2 Troponin, BNP 08/13/19 08/13/19 08/13/19 01:35 01:35 08:50 Troponin I < 0.02 < 0.02 B-Natriuretic Peptide 21.2 Assessment/Plan 63 year old female with a PMH of asthma, COPD, CHF, HTN, and HLD. She presented from [facility] with acute onset of SOB, wheezing, and hypoxia. She received decadron and Combivent. Although written for Lasix, she was not receiving Lasix because of low blood pressures. Trops negative. BNP 21.2 Last Echocardiogram 06/02/2019: Normal LV size EF 50 -55% Mild MR Mild TR Presumed COPD exacerbation COVID test pending No evidence for CHF With BNP 21, no reason to diuress at this time Ok to use Diltiazem in this setting if needed for BP Would avoid beta blockers
--- NOTE | 2019-08-13 12:18 | PN ---
Progress Note (short form) - Note Progress Note: pt examined in ER SOB Cough+ received antibiotics and solumedrol Vital Signs - 24 hr 08/12/19 08/13/19 08/13/19 23:10 00:45 01:06 Temperature 98.1 F 99.1 F Pulse Rate 115 H Pulse Rate [ Radial] Respiratory 17 Rate Blood Pressure 104/70 Blood Pressure [Right Arm] O2 Sat by Pulse 99 100 Oximetry (%) 08/13/19 08/13/19 08/13/19 01:45 02:41 03:17 Temperature Pulse Rate 108 H Pulse Rate [ 86 Radial] Respiratory 16 Rate Blood Pressure Blood Pressure 110/65 [Right Arm] O2 Sat by Pulse 99 95 93 L Oximetry (%) 08/13/19 08/13/19 08/13/19 07:39 09:06 11:35 Temperature 98.7 F Pulse Rate Pulse Rate [ 82 82 86 Radial] Respiratory 18 15 Rate Blood Pressure Blood Pressure 100/67 128/72 133/81 [Right Arm] O2 Sat by Pulse 98 96 Oximetry (%) 08/13/19 08/13/19 17:00 17:25 Temperature 97.8 F 98 F Pulse Rate 104 H 100 H Pulse Rate [ Radial] Respiratory 20 22 H Rate Blood Pressure 122/70 124/70 Blood Pressure [Right Arm] O2 Sat by Pulse 95 Oximetry (%) Current Medications Generic Name Dose Route Start Last Admin Trade Name Freq PRN Reason Stop Dose Admin Albuterol/Ipratropium 1 amp 08/13/19 08:00 08/13/19 13:14 Duoneb - NEB Not Given RTID EPI Albuterol/Ipratropium 1 amp 08/13/19 05:59 Duoneb - NEB Q4H PRN SHORTNESS OF BREATH Budesonide/Formoterol Fumarate 2 puff 08/13/19 10:00 08/13/19 10:40 Symbicort 160/4.5mcg - IH Not Given BID [facility] Heparin Sodium (Porcine) 5,000 unit 08/13/19 07:30 08/13/19 14:43 Heparin - SQ 5,000 unit TID EPI Administration Azithromycin 500 mg in 250 mls @ 250 mls/hr 08/14/19 10:00 Zithromax 500mg Ivpb (Pre-Docked) IVPB DAILY [facility] Ceftriaxone Sodium 1 gm/ 50 mls @ 100 mls/hr 08/13/19 10:00 08/13/19 09:28 Dextrose IVPB 100 mls/hr DAILY EPI Administration Protocol Insulin Aspart 1 vial 08/13/19 07:00 08/13/19 17:29 Novolog Vial Sliding Scale - SQ 10 units ACHS EPI Administration Protocol Methylprednisolone Sodium Succinate 60 mg 08/13/19 06:00 08/13/19 14:43 Solu-Medrol - IVPUSH 60 mg Q8H EPI Administration Laboratory Results - last 24 hr 08/12/19 08/13/19 08/13/19 23:25 00:35 01:22 WBC RBC Hgb Hct MCV MCH MCHC RDW Plt Count MPV Absolute Neuts (auto) Neutrophils % Neutrophils % (Manual) Band Neutrophils % Lymphocytes % Lymphocytes % (Manual) Monocytes % Monocytes % (Manual) Eosinophils % Eosinophils % (Manual) Basophils % Basophils % (Manual) Myelocytes % (Man) Promyelocytes % (Man) Blast Cells % (Manual) Nucleated RBC % Metamyelocytes Hypochromia Platelet Estimate Polychromasia Poikilocytosis Basophilic Stippling Anisocytosis Microcytosis Macrocytosis Retic Count PT with INR INR PTT (Actin FS) D-Dimer Anticoagulation Therapy No Result Required. No Result Required. Puncture Site No Result Required. No Result Required. Patient Temperature No Result Required. No Result Required. ABG pH 7.298 L 7.354 ABG pCO2 52.30 H 43.80 ABG pO2 30.2 L* 143.9 H ABG HCO3 25.0 23.9 ABG O2 Sat (Measured) 50.5 L 98.7 H ABG O2 Content No Result Required. No Result Required. ABG Base Excess -1.8 -1.6 Dandre Test No Result Required. No Result Required. Patient On Oxygen Yes Yes O2 Delivery Device Nrb mask Bipap Oxygen Flow Rate 100% 40% Vent Mode No Result Required. S/t Vent Rate No Result Required. 16 Mechanical Rate No Result Required. Bipap PEEP No Result Required. No Result Required. Pressure Support Vent No Result Required. 15/5 Sodium Potassium Chloride Carbon Dioxide Anion Gap BUN Creatinine Est GFR (CKD-EPI)AfAm Est GFR (CKD-EPI)NonAf POC Glucometer Random Glucose Lactic Acid 1.8 Calcium Iron TIBC Iron Saturation Unsaturated IBC Ferritin Total Bilirubin AST ALT Alkaline Phosphatase Creatine Kinase CK-MB (CK-2) Troponin I B-Natriuretic Peptide Total Protein Albumin Urine Color Urine Appearance Urine pH Ur Specific [place] Urine Protein Urine Glucose (UA) Urine Ketones Urine Blood Urine Nitrite Urine Bilirubin Urine Urobilinogen Ur Leukocyte Esterase Urine WBC (Auto) Urine RBC (Auto) Urine Casts (Auto) U Pathogenic Cast Auto U Epithel Cells (Auto) Urine Bacteria (Auto) Urine Yeast (Auto) Ur Random Creatinine U Random Total Protein Protein/Creatinin Ratio 08/13/19 08/13/19 08/13/19 01:35 01:35 01:35 WBC RBC Hgb Hct MCV MCH MCHC RDW Plt Count MPV Absolute Neuts (auto) Neutrophils % Neutrophils % (Manual) Band Neutrophils % Lymphocytes % Lymphocytes % (Manual) Monocytes % Monocytes % (Manual) Eosinophils % Eosinophils % (Manual) Basophils % Basophils % (Manual) Myelocytes % (Man) Promyelocytes % (Man) Blast Cells % (Manual) Nucleated RBC % Metamyelocytes Hypochromia Platelet Estimate Polychromasia Poikilocytosis Basophilic Stippling Anisocytosis Microcytosis Macrocytosis Retic Count PT with INR 11.50 INR 0.97 PTT (Actin FS) 31.8 D-Dimer Anticoagulation Therapy Puncture Site Patient Temperature ABG pH ABG pCO2 ABG pO2 ABG HCO3 ABG O2 Sat (Measured) ABG O2 Content ABG Base Excess Dandre Test Patient On Oxygen O2 Delivery Device Oxygen Flow Rate Vent Mode Vent Rate Mechanical Rate PEEP Pressure Support Vent Sodium Potassium Chloride Carbon Dioxide Anion Gap BUN Creatinine Est GFR (CKD-EPI)AfAm Est GFR (CKD-EPI)NonAf POC Glucometer Random Glucose Lactic Acid Calcium Iron TIBC Iron Saturation Unsaturated IBC Ferritin Total Bilirubin AST ALT Alkaline Phosphatase Creatine Kinase CK-MB (CK-2) Troponin I < 0.02 B-Natriuretic Peptide 21.2 Total Protein Albumin Urine Color Urine Appearance Urine pH Ur Specific [place] Urine Protein Urine Glucose (UA) Urine Ketones Urine Blood Urine Nitrite Urine Bilirubin Urine Urobilinogen Ur Leukocyte Esterase Urine WBC (Auto) Urine RBC (Auto) Urine Casts (Auto) U Pathogenic Cast Auto U Epithel Cells (Auto) Urine Bacteria (Auto) Urine Yeast (Auto) Ur Random Creatinine U Random Total Protein Protein/Creatinin Ratio 08/13/19 08/13/19 08/13/19 01:35 01:38 07:41 WBC 15.1 H RBC 3.19 L Hgb 9.4 L Hct 30.4 L MCV 95.3 MCH 29.5 MCHC 31.0 L RDW 15.1 D Plt Count 269 MPV 8.4 Absolute Neuts (auto) 13.9 H Neutrophils % 91.7 H Neutrophils % (Manual) 86.5 H Band Neutrophils % 6.2 Lymphocytes % 4.3 L D Lymphocytes % (Manual) 5.2 L D Monocytes % 2.9 L Monocytes % (Manual) 2 L Eosinophils % 0.8 D Eosinophils % (Manual) 0.0 Basophils % 0.3 Basophils % (Manual) 0.0 Myelocytes % (Man) 0 Promyelocytes % (Man) 0 Blast Cells % (Manual) 0 Nucleated RBC % 0 Metamyelocytes 0 D Hypochromia 1+ Platelet Estimate Normal Polychromasia 1+ Poikilocytosis 0 Basophilic Stippling 2+ Anisocytosis 1+ Microcytosis 1+ Macrocytosis 0 Retic Count PT with INR INR PTT (Actin FS) D-Dimer Anticoagulation Therapy Puncture Site Patient Temperature ABG pH ABG pCO2 ABG pO2 ABG HCO3 ABG O2 Sat (Measured) ABG O2 Content ABG Base Excess Dandre Test Patient On Oxygen O2 Delivery Device Oxygen Flow Rate Vent Mode Vent Rate Mechanical Rate PEEP Pressure Support Vent Sodium 139 Potassium 4.9 Chloride 105 Carbon Dioxide 25 Anion Gap 9 BUN 44.5 H Creatinine 1.7 H Est GFR (CKD-EPI)AfAm 36.56 Est GFR (CKD-EPI)NonAf 31.54 POC Glucometer 318 Random Glucose 152 H Lactic Acid Calcium 9.2 Iron TIBC Iron Saturation Unsaturated IBC Ferritin Total Bilirubin 0.5 AST 11 L ALT 17 Alkaline Phosphatase 92 Creatine Kinase 96 CK-MB (CK-2) 1.6 Troponin I B-Natriuretic Peptide Total Protein 6.8 Albumin 3.1 L Urine Color Urine Appearance Urine pH Ur Specific [place] Urine Protein Urine Glucose (UA) Urine Ketones Urine Blood Urine Nitrite Urine Bilirubin Urine Urobilinogen Ur Leukocyte Esterase Urine WBC (Auto) Urine RBC (Auto) Urine Casts (Auto) U Pathogenic Cast Auto U Epithel Cells (Auto) Urine Bacteria (Auto) Urine Yeast (Auto) Ur Random Creatinine U Random Total Protein Protein/Creatinin Ratio 08/13/19 08/13/19 08/13/19 08:10 08:10 08:50 WBC RBC Hgb Hct MCV MCH MCHC RDW Plt Count MPV Absolute Neuts (auto) Neutrophils % Neutrophils % (Manual) Band Neutrophils % Lymphocytes % Lymphocytes % (Manual) Monocytes % Monocytes % (Manual) Eosinophils % Eosinophils % (Manual) Basophils % Basophils % (Manual) Myelocytes % (Man) Promyelocytes % (Man) Blast Cells % (Manual) Nucleated RBC % Metamyelocytes Hypochromia Platelet Estimate Polychromasia Poikilocytosis Basophilic Stippling Anisocytosis Microcytosis Macrocytosis Retic Count PT with INR INR PTT (Actin FS) D-Dimer Anticoagulation Therapy Puncture Site Patient Temperature ABG pH ABG pCO2 ABG pO2 ABG HCO3 ABG O2 Sat (Measured) ABG O2 Content ABG Base Excess Dandre Test Patient On Oxygen O2 Delivery Device Oxygen Flow Rate Vent Mode Vent Rate Mechanical Rate PEEP Pressure Support Vent Sodium Potassium Chloride Carbon Dioxide Anion Gap BUN Creatinine Est GFR (CKD-EPI)AfAm Est GFR (CKD-EPI)NonAf POC Glucometer Random Glucose Lactic Acid Calcium Iron 18 L TIBC 388 Iron Saturation 4 L Unsaturated IBC 370 H Ferritin 51.6 Total Bilirubin AST ALT Alkaline Phosphatase Creatine Kinase CK-MB (CK-2) Troponin I < 0.02 B-Natriuretic Peptide Total Protein Albumin Urine Color Yellow Urine Appearance Cloudy Urine pH 5.0 Ur Specific [place] 1.018 Urine Protein Negative Urine Glucose (UA) Negative Urine Ketones Negative Urine Blood 2+ H Urine Nitrite Negative Urine Bilirubin Negative Urine Urobilinogen 0.2 Ur Leukocyte Esterase 2+ H Urine WBC (Auto) 117.6 Urine RBC (Auto) 46.1 Urine Casts (Auto) 8.86 U Pathogenic Cast Auto Review A* U Epithel Cells (Auto) 28.3 Urine Bacteria (Auto) 1.9 Urine Yeast (Auto) Review A* Ur Random Creatinine 117.0 U Random Total Protein 18.6 H Protein/Creatinin Ratio 0.2 08/13/19 08/13/19 08/13/19 08:50 08:50 11:12 WBC RBC Hgb Hct MCV MCH MCHC RDW Plt Count MPV Absolute Neuts (auto) Neutrophils % Neutrophils % (Manual) Band Neutrophils % Lymphocytes % Lymphocytes % (Manual) Monocytes % Monocytes % (Manual) Eosinophils % Eosinophils % (Manual) Basophils % Basophils % (Manual) Myelocytes % (Man) Promyelocytes % (Man) Blast Cells % (Manual) Nucleated RBC % Metamyelocytes Hypochromia Platelet Estimate Polychromasia Poikilocytosis Basophilic Stippling Anisocytosis Microcytosis Macrocytosis Retic Count 3.23 H PT with INR INR PTT (Actin FS) D-Dimer 3611 H Anticoagulation Therapy Puncture Site Patient Temperature ABG pH ABG pCO2 ABG pO2 ABG HCO3 ABG O2 Sat (Measured) ABG O2 Content ABG Base Excess Dandre Test Patient On Oxygen O2 Delivery Device Oxygen Flow Rate Vent Mode Vent Rate Mechanical Rate PEEP Pressure Support Vent Sodium Potassium Chloride Carbon Dioxide Anion Gap BUN Creatinine Est GFR (CKD-EPI)AfAm Est GFR (CKD-EPI)NonAf POC Glucometer 311 Random Glucose Lactic Acid Calcium Iron TIBC Iron Saturation Unsaturated IBC Ferritin Total Bilirubin AST ALT Alkaline Phosphatase Creatine Kinase CK-MB (CK-2) Troponin I B-Natriuretic Peptide Total Protein Albumin Urine Color Urine Appearance Urine pH Ur Specific [place] Urine Protein Urine Glucose (UA) Urine Ketones Urine Blood Urine Nitrite Urine Bilirubin Urine Urobilinogen Ur Leukocyte Esterase Urine WBC (Auto) Urine RBC (Auto) Urine Casts (Auto) U Pathogenic Cast Auto U Epithel Cells (Auto) Urine Bacteria (Auto) Urine Yeast (Auto) Ur Random Creatinine U Random Total Protein Protein/Creatinin Ratio 08/13/19 17:05 WBC RBC Hgb Hct MCV MCH MCHC RDW Plt Count MPV Absolute Neuts (auto) Neutrophils % Neutrophils % (Manual) Band Neutrophils % Lymphocytes % Lymphocytes % (Manual) Monocytes % Monocytes % (Manual) Eosinophils % Eosinophils % (Manual) Basophils % Basophils % (Manual) Myelocytes % (Man) Promyelocytes % (Man) Blast Cells % (Manual) Nucleated RBC % Metamyelocytes Hypochromia Platelet Estimate Polychromasia Poikilocytosis Basophilic Stippling Anisocytosis Microcytosis Macrocytosis Retic Count PT with INR INR PTT (Actin FS) D-Dimer Anticoagulation Therapy Puncture Site Patient Temperature ABG pH ABG pCO2 ABG pO2 ABG HCO3 ABG O2 Sat (Measured) ABG O2 Content ABG Base Excess Dandre Test Patient On Oxygen O2 Delivery Device Oxygen Flow Rate Vent Mode Vent Rate Mechanical Rate PEEP Pressure Support Vent Sodium Potassium Chloride Carbon Dioxide Anion Gap BUN Creatinine Est GFR (CKD-EPI)AfAm Est GFR (CKD-EPI)NonAf POC Glucometer 398 Random Glucose Lactic Acid Calcium Iron TIBC Iron Saturation Unsaturated IBC Ferritin Total Bilirubin AST ALT Alkaline Phosphatase Creatine Kinase CK-MB (CK-2) Troponin I B-Natriuretic Peptide Total Protein Albumin Urine Color Urine Appearance Urine pH Ur Specific [place] Urine Protein Urine Glucose (UA) Urine Ketones Urine Blood Urine Nitrite Urine Bilirubin Urine Urobilinogen Ur Leukocyte Esterase Urine WBC (Auto) Urine RBC (Auto) Urine Casts (Auto) U Pathogenic Cast Auto U Epithel Cells (Auto) Urine Bacteria (Auto) Urine Yeast (Auto) Ur Random Creatinine U Random Total Protein Protein/Creatinin Ratio S1 S2 RRR Lungs ronchi++ Abd-soft, obese, NT edema++ PLAN continue solumedrol monitor BP, renal function Lasix antibiotics COVID pending DVT prophylaxis Problem List - Problems (1) KD (acute kidney injury) Code(s): N17.9 - ACUTE KIDNEY FAILURE, UNSPECIFIED (2) Acute and chronic respiratory failure with hypoxia Code(s): J96.21 - ACUTE AND CHRONIC RESPIRATORY FAILURE WITH HYPOXIA (3) COPD exacerbation Code(s): J44.1 - CHRONIC OBSTRUCTIVE PULMONARY DISEASE W (ACUTE) EXACERBATION (4) UTI (urinary tract infection) Code(s): N39.0 - URINARY TRACT INFECTION, SITE NOT SPECIFIED
[2019-08-13] MEDS ORDERED: methylPREDNISolone NA SUCC 40 MG/1 ML VIAL ONE (13:09)
--- NOTE | 2019-08-13 13:16 | EKG ---
Test Reason : Blood Pressure : / mmHG Vent. Rate : 085 BPM Atrial Rate : 085 BPM P-R Int : 198 ms QRS Dur : 104 ms QT Int : 382 ms P-R-T Axes : 050 009 106 degrees QTc Int : 454 ms NORMAL SINUS RHYTHM POSSIBLE ANTERIOR INFARCT , AGE UNDETERMINED T WAVE ABNORMALITY, CONSIDER LATERAL ISCHEMIA ABNORMAL ECG WHEN COMPARED WITH ECG OF 12-AUG-2019 23:58, BORDERLINE CRITERIA FOR ANTERIOR INFARCT ARE NOW PRESENT Confirmed by MD Leopoldo, Car ([id number]) on 08/13/2019 1:15:56 PM Referred By: Confirmed By:Car Mina MD
--- NOTE | 2019-08-13 13:27 | CONSULT ---
Consult Consult Specialty:: Nephrology Reason for Consultation:: KD - History of Present Illness Chief Complaint: shortness of breath and wheezing History of Present Illness: Pt is a 63 year old female with pmhx of asthma, copd, chf, htn, and hld who pres ents with shortness of breath and wheezing. She says that she has feels this way for a few days. She denies chest pain or palpitations. She was found to have elevated property specialist and I was called to evaluate her. She says she was on lasix however stopped taking it as she was hypotensive. She denies dysuria or hematuria. - History Source History Provided By: Patient, Medical Record - Past Medical History Cardio/Vascular: Yes: CHF, HTN Pulmonary: Yes: Asthma, COPD Psych: Yes: Depression - Alcohol/Substance Use Hx Alcohol Use: No - Smoking History Smoking history: Never smoked Have you smoked in the past 12 months: No Home Medications - Allergies Allergies/Adverse Reactions: Allergies Allergy/AdvReac Type Severity Reaction Status Date / Time No Known Allergies Allergy Verified 08/12/19 23:24 - Home Medications Home Medications: Ambulatory Orders Baclofen 10 mg PO TID 05/29/19 Budesonide/Formeterol Fumarate [SYMBICORT 160/4.5mcg -] 2 inh PO BID 05/29/19 Diltiazem HCl [Diltiazem 24Hr ER (Cd)] 120 mg PO DAILY 05/29/19 Ergocalciferol (Vitamin D2) [Vitamin D2] 50,000 unit PO WEEKLY 05/29/19 Gabapentin [Neurontin] 600 mg PO TID 05/29/19 Ipratropium 0.02% Nebulizer [Atrovent 0.02% Nebulizer -] 1 neb NEB Q4H PRN 05/29/19 Lisinopril [Prinivil -] 40 mg PO DAILY 05/29/19 Melatonin 5 mg PO HS 05/29/19 Polyethylene Glycol 3350 [Miralax 119 gm Btl -] 17 gm PO DAILY 05/29/19 traZODone HCL [Trazodone HCl] 50 mg PO HS 05/29/19 Acetaminophen [Tylenol .Regular Strength -] 650 mg PO Q6H PRN tablet 06/09/19 Tiotropium [place] [Spiriva Respimat] 2 puff IH DAILY inhaler 06/09/19 Atorvastatin Ca [Lipitor] 20 mg PO HS 08/13/19 Furosemide 40 mg PO DAILY 08/13/19 Guaifenesin [Glenda-Tussin] 100 mg PO TID PRN 08/13/19 Insulin Glargine,Hum.rec.anlog [Basaglar Kwikpen U-100] 22 unit SQ DAILY 08/13/19 Insulin Lispro [Admelog Solostar] 100 unit SQ ASDIR 08/13/19 Lidocaine 5% Patch [Lidoderm Patch -] 1 patch TP DAILY 08/13/19 Naproxen 500 mg PO BID PRN 08/13/19 Sevelamer Carbonate [Renvela] 800 mg PO AC 08/13/19 Tramadol HCl 50 mg PO TID PRN 08/13/19 Family Medical History Family History: Denies Review of Systems - Review of Systems Constitutional: reports: Malaise HENT: reports: No Symptoms Neck: reports: No Symptoms Cardiovascular: reports: Edema, Shortness of Breath Respiratory: reports: Cough, Wheezing Gastrointestinal: reports: No Symptoms Genitourinary: reports: No Symptoms Musculoskeletal: reports: No Symptoms Integumentary: reports: No Symptoms Neurological: reports: No Symptoms Endocrine: reports: No Symptoms Hematology/Lymphatic: reports: No Symptoms Psychiatric: reports: No Symptoms Physical Exam Vital Signs: Vital Signs Temperature 98.7 F 08/13/19 11:35 Pulse Rate 86 08/13/19 11:35 Respiratory Rate 15 08/13/19 11:35 Blood Pressure 133/81 08/13/19 11:35 O2 Sat by Pulse Oximetry (%) 96 08/13/19 11:35 Constitutional: Yes: Calm Eyes: Yes: Conjunctiva Clear HENT: Yes: Atraumatic Neck: Yes: Supple Cardiovascular: Yes: S1, S2 Respiratory: Yes: On Nasal O2, Wheezes Gastrointestinal: Yes: Soft Renal/: Yes: WNL Edema: Yes Edema: LLE: 2+, RLE: 2+ Neurological: Yes: Oriented Psychiatric: Yes: Oriented Labs: CBC, BMP 08/13/19 01:35 08/13/19 01:38 Imaging - Results Chest X-ray: Report Reviewed Problem List - Problems (1) KD (acute kidney injury) Code(s): N17.9 - ACUTE KIDNEY FAILURE, UNSPECIFIED (2) COPD exacerbation Code(s): J44.1 - CHRONIC OBSTRUCTIVE PULMONARY DISEASE W (ACUTE) EXACERBATION Assessment/Plan Current Medications Generic Name Dose Route Start Last Admin Trade Name Freq PRN Reason Stop Dose Admin Albuterol/Ipratropium 1 amp 08/13/19 08:00 08/13/19 13:14 Duoneb - NEB Not Given RTID EPI Albuterol/Ipratropium 1 amp 08/13/19 05:59 Duoneb - NEB Q4H PRN SHORTNESS OF BREATH Budesonide/Formoterol Fumarate 2 puff 08/13/19 10:00 08/13/19 10:40 Symbicort 160/4.5mcg - IH Not Given BID EPI Heparin Sodium (Porcine) 5,000 unit 08/13/19 07:30 08/13/19 08:18 Heparin - SQ 5,000 unit TID EPI Administration Azithromycin 500 mg in 250 mls @ 250 mls/hr 08/14/19 10:00 Zithromax 500mg Ivpb (Pre-Docked) IVPB DAILY EPI Ceftriaxone Sodium 1 gm/ 50 mls @ 100 mls/hr 08/13/19 10:00 08/13/19 09:28 Dextrose IVPB 100 mls/hr DAILY EIP Administration Protocol Insulin Aspart 1 vial 08/13/19 07:00 08/13/19 11:25 Novolog Vial Sliding Scale - SQ 8 units ACHS EPI Administration Protocol Levalbuterol HCl 0.31 mg 08/13/19 08:00 Xopenex IH RTID EPI Methylprednisolone Sodium Succinate 60 mg 08/13/19 06:00 08/13/19 06:15 Solu-Medrol - IVPUSH 60 mg Q8H EPI Administration Impression 1. KD 2. copd exacerbation 3. lower ext edema 4. chf 5. htn Plan - cont steroids - will give a dose of lasix and observe - repeat bnp - check echo - bp is improved, hold lisinopril - check ua - renal ultrasound reviewed
[2019-08-13] MEDS ORDERED: FUROSEMIDE 40 MG TABLET (FP) PO ONE (13:28)
[2019-08-13 13:40] LABS: EPI CELLS 28.3 /uL (0-25.1); HYALINE CASTS 8.86 /uL (0-3.1); URINE BACTERIA 1.9 /uL (0-1359); URINE RBC 46.1 /uL (0-23.9); URINE WBC 117.6 /uL (0-25.8)
--- NOTE | 2019-08-13 13:57 | CON.PULM ---
Consult Consult Specialty:: PULMONARY Referred by:: Dr Chatterjee Reason for Consultation:: COPD - History of Present Illness Chief Complaint: shortness of breath History of Present Illness: 63yo female with h/o HTN, hyperlipidemia, DM, CKD, COPD, LV diastolic dysfunction who was admitted from the intermediate for worsening shortness of breath x 2 days. Reports a cough productive of green sputum and wheezing. No fevers, chills or sweats. No chest pain or discomfort. no nausea, vomiting or diarrhea. Was admitted 3 months ago for similar symptoms, treated for COPD exacerbation. CXR showing some right basilar atelectasis. She is a long time smoker of 30 years, quit 6 months ago. - History Source History Provided By: Patient, Medical Record Limitations to Obtaining History: No Limitations - Past Medical History Cardio/Vascular: Yes: CHF, HTN Pulmonary: Yes: Asthma, COPD Psych: Yes: Depression - Alcohol/Substance Use Hx Alcohol Use: No - Smoking History Smoking history: Never smoked Have you smoked in the past 12 months: No Home Medications - Allergies Allergies/Adverse Reactions: Allergies Allergy/AdvReac Type Severity Reaction Status Date / Time No Known Allergies Allergy Verified 08/12/19 23:24 - Home Medications Home Medications: Ambulatory Orders Baclofen 10 mg PO TID 05/29/19 Budesonide/Formeterol Fumarate [SYMBICORT 160/4.5mcg -] 2 inh PO BID 05/29/19 Diltiazem HCl [Diltiazem 24Hr ER (Cd)] 120 mg PO DAILY 05/29/19 Ergocalciferol (Vitamin D2) [Vitamin D2] 50,000 unit PO WEEKLY 05/29/19 Gabapentin [Neurontin] 600 mg PO TID 05/29/19 Ipratropium 0.02% Nebulizer [Atrovent 0.02% Nebulizer -] 1 neb NEB Q4H PRN 05/29/19 Lisinopril [Prinivil -] 40 mg PO DAILY 05/29/19 Melatonin 5 mg PO HS 05/29/19 Polyethylene Glycol 3350 [Miralax 119 gm Btl -] 17 gm PO DAILY 05/29/19 traZODone HCL [Trazodone HCl] 50 mg PO HS 05/29/19 Acetaminophen [Tylenol .Regular Strength -] 650 mg PO Q6H PRN tablet 06/09/19 Tiotropium [place] [Spiriva Respimat] 2 puff IH DAILY inhaler 06/09/19 Atorvastatin Ca [Lipitor] 20 mg PO HS 08/13/19 Furosemide 40 mg PO DAILY 08/13/19 Guaifenesin [Glenda-Tussin] 100 mg PO TID PRN 08/13/19 Insulin Glargine,Hum.rec.anlog [Basaglar Kwikpen U-100] 22 unit SQ DAILY 08/13/19 Insulin Lispro [Admelog Solostar] 100 unit SQ ASDIR 08/13/19 Lidocaine 5% Patch [Lidoderm Patch -] 1 patch TP DAILY 08/13/19 Naproxen 500 mg PO BID PRN 08/13/19 Sevelamer Carbonate [Renvela] 800 mg PO AC 08/13/19 Tramadol HCl 50 mg PO TID PRN 08/13/19 Review of Systems - Review of Systems Constitutional: reports: Weakness. denies: Chills, Fever Eyes: denies: Recent Change in Vision HENT: denies: Throat Pain Neck: denies: Tenderness Cardiovascular: reports: Shortness of Breath Respiratory: reports: Cough, Wheezing Gastrointestinal: denies: Abdominal Pain, Nausea Neurological: denies: Dizziness, Headache Endocrine: denies: Unexplained Weight Loss Physical Exam Vital Sings: Vital Signs Temperature 98.7 F 08/13/19 11:35 Pulse Rate 86 08/13/19 11:35 Respiratory Rate 15 08/13/19 11:35 Blood Pressure 133/81 08/13/19 11:35 O2 Sat by Pulse Oximetry (%) 96 08/13/19 11:35 Constitutional: Yes: Calm Eyes: Yes: Conjunctiva Clear, EOM Intact HENT: Yes: Atraumatic, Normocephalic Neck: Yes: Supple, Trachea Midline Cardiovascular: Yes: Regular Rate and Rhythm Respiratory: Yes: Rhonchi, Wheezes ...Clubbing: No Gastrointestinal: Yes: Normal Bowel Sounds, Soft. No: Tenderness Edema: Yes Neurological: Yes: Alert, Oriented Labs: CBC, BMP 08/13/19 01:35 08/13/19 01:38 ABG Results ABG pH 7.354 (7.350-7.450) 08/13/19 01:22 ABG HCO3 23.9 mmol/L (22-27) 07/08/20 01:22 ABG O2 Sat (Measured) 98.7 mmHg (95-98) H 08/13/19 01:22 ABG O2 Content No Result Required. 08/13/19 01:22 ABG Base Excess -1.6 mmol/L (-2-2) 08/13/19 01:22 Imaging - Results Chest X-ray: Report Reviewed, Image Reviewed (right basilar atelectasis) Problem List - Problems (1) COPD exacerbation Code(s): J44.1 - CHRONIC OBSTRUCTIVE PULMONARY DISEASE W (ACUTE) EXACERBATION Assessment/Plan Acute COPD Exacerbation Acute Bronchitis Acute on Chronic Renal Failure LV Diastolic Dysfunction HTN DM Hyperlipidemia - IV medrol - empiric antibiotics - inhaled bronchodilators - O2 to keep SpO2 >90% - lasix - monitor urine output, creatinine - DVT prophylaxis Thank you for this consult Murtaza Greer MD
[2019-08-13] MEDS ORDERED: INSULIN (NOVOLOG) ASPART 100 UNITS/ML 10ML VIAL ONE (22:13)
[2019-08-13] MEDS: MELATONIN 5 MG TABLETS PO PRN (23:55)
[2019-08-14] MEDS: methylPREDNISolone NA SUCC 40 MG/1 ML VIAL IVPUSH SCH ×3 (05:51→21:31)
[2019-08-14] MEDS: HEPARIN NA (PORCINE) 5,000 UNITS/ML 1ML VIAL SQ SCH ×3 (05:51→21:31)
[2019-08-14] MEDS: INSULIN SLIDING SCALE (NOVOLOG) 1 VIAL SQ SCH ×4 (06:14→21:31)
[2019-08-14 07:26] LABS: ALBUMIN 2.7 g/dl (3.4-5.0); BILIRUBIN,TOTAL 0.3 mg/dL (0.2-1); BLOOD UREA NITROGEN 64.6 mg/dL (7-18); CALCIUM 8.7 mg/dL (8.5-10.1); CREATININE 1.7 mg/dL (0.55-1.3); N-TERMINAL BNP 192.3 pg/ml (5-125); POTASSIUM 4.7 mmol/L (3.5-5.1); TOT PROT 6.2 g/dl (6.4-8.2)
--- NOTE | 2019-08-14 07:51 | PN ---
Progress Note, Physician History of Present Illness: pulmonary alert,comfortable,,less dyspneic on nasal cannula 2l,o2 sat 98% - Current Medication List Current Medications: Active Medications Albuterol/Ipratropium (Duoneb -) 1 amp NEB RTID [facility] Last Admin: 08/13/19 21:00 Dose: 1 amp Documented by: Albuterol/Ipratropium (Duoneb -) 1 amp NEB Q4H PRN PRN Reason: SHORTNESS OF BREATH Budesonide/Formoterol Fumarate (Symbicort 160/4.5mcg -) 2 puff IH BID [facility] Last Admin: 08/13/19 22:00 Dose: Not Given Documented by: Heparin Sodium (Porcine) (Heparin -) 5,000 unit SQ TID [facility] Last Admin: 08/14/19 05:51 Dose: 5,000 unit Documented by: Azithromycin (Zithromax 500mg Ivpb (Pre-Docked)) 500 mg in 250 mls @ 250 mls/hr IVPB DAILY EPI Ceftriaxone Sodium 1 gm/ (Dextrose) 50 mls @ 100 mls/hr IVPB DAILY [facility]; Protocol Last Admin: 08/13/19 09:28 Dose: 100 mls/hr Documented by: Insulin Aspart (Novolog Vial Sliding Scale -) 1 vial SQ ACHS [facility]; Protocol Last Admin: 08/14/19 06:14 Dose: 14 units Documented by: Melatonin (Melatonin) 5 mg PO HS PRN PRN Reason: INSOMNIA Last Admin: 08/13/19 23:55 Dose: 5 mg Documented by: Methylprednisolone Sodium Succinate (Solu-Medrol -) 60 mg IVPUSH Q8H [facility] Last Admin: 08/14/19 05:51 Dose: 60 mg Documented by: - Objective Vital Signs: Vital Signs Temperature 98 F 08/14/19 05:00 Pulse Rate 93 H 08/14/19 05:00 Respiratory Rate 20 08/14/19 05:00 Blood Pressure 105/54 L 08/14/19 05:00 O2 Sat by Pulse Oximetry (%) 95 08/13/19 21:00 Constitutional: Yes: Well Nourished, Calm Eyes: Yes: WNL HENT: Yes: WNL Neck: Yes: WNL Cardiovascular: Yes: Regular Rate and Rhythm, S1, S2 Respiratory: Yes: Diminished Gastrointestinal: Yes: Normal Bowel Sounds, Soft Extremities: Yes: WNL Edema: No Labs: CBC, BMP 08/14/19 05:30 INR, PTT Assessment/Plan Problem List - Problems (1) COPD exacerbation Code(s): J44.1 - CHRONIC OBSTRUCTIVE PULMONARY DISEASE W (ACUTE) EXACERBATION Assessment/Plan Acute COPD Exacerbation clinically improving Acute Bronchitis Acute on Chronic Renal Failure LV Diastolic Dysfunction HTN DM Hyperlipidemia - IV medrol - empiric antibiotics - inhaled bronchodilators - O2 to keep SpO2 >90% - lasix - monitor urine output, creatinine - DVT prophylaxis DR ALMANZA
[2019-08-14] MEDS: ALBUTEROL SO4 2.5/IPRATROPIUM 0.5 INH SOL 3 ML VIAL.NEB. NEB SCH ×3 (09:00→20:30)
[2019-08-14] MEDS ORDERED: cefTRIAXone SODIUM 1 GM VIAL ONE (09:09)
[2019-08-14] MEDS ORDERED: DEXTROSE 5%-WATER - 50 ML IVPB ONE (09:09)
[2019-08-14] MEDS: CEFTRIAXONE 1 GM in DEXTROSE 5%-WATER - 50 ML IVPB SCH (09:46)
[2019-08-14] MEDS: AZITHROMYCIN IVPB 500 MG/250 ML BAG IVPB SCH (09:47)
[2019-08-14] MEDS: BUDESONIDE/FORMETEROL FUMARATE 160/4.5 mcg INHALER IH SCH ×2 (10:00→21:35)
[2019-08-14] MEDS ORDERED: PT OWN MED DRAWER 7, Y5N ONE (10:25)
--- NOTE | 2019-08-14 13:16 | PN ---
Progress Note (short form) - Note Progress Note: pt examined SOB Cough+ received antibiotics and solumedrol COVID negative depressed Vital Signs - 24 hr 08/13/19 08/13/19 08/13/19 17:00 17:25 21:00 Temperature 97.8 F 98 F 99.4 F Pulse Rate 104 H 100 H 104 H Respiratory 20 22 H 22 H Rate Blood Pressure 122/70 124/70 125/70 O2 Sat by Pulse 95 95 Oximetry (%) 08/14/19 08/14/19 05:00 09:00 Temperature 98 F 98.0 F Pulse Rate 93 H 94 H Respiratory 20 24 H Rate Blood Pressure 105/54 L 126/66 O2 Sat by Pulse 98 Oximetry (%) Current Medications Generic Name Dose Route Start Last Admin Trade Name Freq PRN Reason Stop Dose Admin Albuterol/Ipratropium 1 amp 08/13/19 08:00 08/14/19 09:00 Duoneb - NEB 1 amp RTID EPI Administration Albuterol/Ipratropium 1 amp 08/13/19 05:59 Duoneb - NEB Q4H PRN SHORTNESS OF BREATH Budesonide/Formoterol Fumarate 2 puff 08/13/19 10:00 08/14/19 10:00 Symbicort 160/4.5mcg - IH 2 puff BID EPI Administration Heparin Sodium (Porcine) 5,000 unit 08/13/19 07:30 08/14/19 05:51 Heparin - SQ 5,000 unit TID EPI Administration Azithromycin 500 mg in 250 mls @ 250 mls/hr 08/14/19 10:00 08/14/19 09:47 Zithromax 500mg Ivpb (Pre-Docked) IVPB 250 mls/hr DAILY EPI Administration Ceftriaxone Sodium 1 gm/ 50 mls @ 100 mls/hr 08/13/19 10:00 08/14/19 09:46 Dextrose IVPB 100 mls/hr DAILY EPI Administration Protocol Insulin Aspart 1 vial 08/13/19 07:00 08/14/19 12:14 Novolog Vial Sliding Scale - SQ 12 units ACHS EPI Administration Protocol Insulin Detemir 14 units 08/14/19 22:00 Levemir Vial SQ 0700,2200 EPI Melatonin 5 mg 08/13/19 23:12 08/13/19 23:55 Melatonin PO 5 mg HS PRN Administration INSOMNIA Methylprednisolone Sodium Succinate 60 mg 08/13/19 06:00 08/14/19 05:51 Solu-Medrol - IVPUSH 60 mg Q8H EPI Administration Laboratory Results - last 24 hr 08/13/19 08/13/19 08/13/19 00:40 08:10 17:05 Sodium Potassium Chloride Carbon Dioxide Anion Gap BUN Creatinine Est GFR (CKD-EPI)AfAm Est GFR (CKD-EPI)NonAf POC Glucometer 398 Random Glucose Calcium Total Bilirubin AST ALT Alkaline Phosphatase B-Natriuretic Peptide Total Protein Albumin Urine WBC (Auto) 117.6 Urine RBC (Auto) 46.1 Urine Casts (Auto) 8.86 U Pathogenic Cast Auto Review A* U Epithel Cells (Auto) 28.3 Urine Bacteria (Auto) 1.9 Urine Yeast (Auto) Review A* COVID-19 (ANGELIQUE) Not detected 08/13/19 08/13/19 08/14/19 22:09 22:30 05:30 Sodium 136 Potassium 4.7 Chloride 103 Carbon Dioxide 22 Anion Gap 11 BUN 64.6 H Creatinine 1.7 H Est GFR (CKD-EPI)AfAm 36.56 Est GFR (CKD-EPI)NonAf 31.54 POC Glucometer 411 Random Glucose 399 H 432 H* Calcium 8.7 Total Bilirubin 0.3 AST 9 L ALT 13 Alkaline Phosphatase 74 B-Natriuretic Peptide 192.3 H Total Protein 6.2 L Albumin 2.7 L Urine WBC (Auto) Urine RBC (Auto) Urine Casts (Auto) U Pathogenic Cast Auto U Epithel Cells (Auto) Urine Bacteria (Auto) Urine Yeast (Auto) COVID-19 (ANGELIQUE) 08/14/19 08/14/19 05:34 12:06 Sodium Potassium Chloride Carbon Dioxide Anion Gap BUN Creatinine Est GFR (CKD-EPI)AfAm Est GFR (CKD-EPI)NonAf POC Glucometer 424 421 Random Glucose Calcium Total Bilirubin AST ALT Alkaline Phosphatase B-Natriuretic Peptide Total Protein Albumin Urine WBC (Auto) Urine RBC (Auto) Urine Casts (Auto) U Pathogenic Cast Auto U Epithel Cells (Auto) Urine Bacteria (Auto) Urine Yeast (Auto) COVID-19 (ANGELIQUE) S1 S2 RRR Lungs ronchi++ Abd-soft, obese, NT edema++ PLAN continue solumedrol monitor BP, renal function Lasix antibiotics COVID negative DVT prophylaxis -- echo ordered -- doppler legs pending -- renal function stable -- start zoloft -- start levemir for better glucose control Problem List - Problems (1) KD (acute kidney injury) Code(s): N17.9 - ACUTE KIDNEY FAILURE, UNSPECIFIED (2) Acute and chronic respiratory failure with hypoxia Code(s): J96.21 - ACUTE AND CHRONIC RESPIRATORY FAILURE WITH HYPOXIA (3) COPD exacerbation Code(s): J44.1 - CHRONIC OBSTRUCTIVE PULMONARY DISEASE W (ACUTE) EXACERBATION (4) UTI (urinary tract infection) Code(s): N39.0 - URINARY TRACT INFECTION, SITE NOT SPECIFIED
[2019-08-14] MEDS ORDERED: FUROSEMIDE 40 MG/4 ML INJECTABLE VIAL IVPUSH ONE (14:45)
--- NOTE | 2019-08-14 14:45 | PN ---
Progress Note, Physician History of Present Illness: Pt seen and examined at bedside. She is awake and alert. She appears more comfortable today. - Current Medication List Current Medications: Active Medications Albuterol/Ipratropium (Duoneb -) 1 amp NEB RTID [facility] Last Admin: 08/14/19 14:36 Dose: Not Given Documented by: Albuterol/Ipratropium (Duoneb -) 1 amp NEB Q4H PRN PRN Reason: SHORTNESS OF BREATH Budesonide/Formoterol Fumarate (Symbicort 160/4.5mcg -) 2 puff IH BID [facility] Last Admin: 08/14/19 10:00 Dose: 2 puff Documented by: Heparin Sodium (Porcine) (Heparin -) 5,000 unit SQ TID [facility] Last Admin: 08/14/19 05:51 Dose: 5,000 unit Documented by: Azithromycin (Zithromax 500mg Ivpb (Pre-Docked)) 500 mg in 250 mls @ 250 mls/hr IVPB DAILY [facility] Last Admin: 08/14/19 09:47 Dose: 250 mls/hr Documented by: Ceftriaxone Sodium 1 gm/ (Dextrose) 50 mls @ 100 mls/hr IVPB DAILY [facility]; Pr otocol Last Admin: 08/14/19 09:46 Dose: 100 mls/hr Documented by: Insulin Aspart (Novolog Vial Sliding Scale -) 1 vial SQ ACHS [facility]; Protocol Last Admin: 08/14/19 12:14 Dose: 12 units Documented by: Insulin Detemir (Levemir Vial) 14 units SQ 0700,2200 [facility] Melatonin (Melatonin) 5 mg PO HS PRN PRN Reason: INSOMNIA Last Admin: 08/13/19 23:55 Dose: 5 mg Documented by: Methylprednisolone Sodium Succinate (Solu-Medrol -) 60 mg IVPUSH Q8H [facility] Last Admin: 08/14/19 05:51 Dose: 60 mg Documented by: Sertraline HCl (Zoloft -) 25 mg PO DAILY [facility] - Objective Vital Signs: Vital Signs Temperature 98.9 F 08/14/19 13:00 Pulse Rate 96 H 08/14/19 13:00 Respiratory Rate 22 H 08/14/19 13:00 Blood Pressure 127/70 08/14/19 13:00 O2 Sat by Pulse Oximetry (%) 98 08/14/19 09:00 Constitutional: Yes: Calm Eyes: Yes: Conjunctiva Clear HENT: Yes: Atraumatic Cardiovascular: Yes: S1, S2 Respiratory: Yes: On Nasal O2, Wheezes Gastrointestinal: Yes: Soft Genitourinary: Yes: WNL Edema: Yes Edema: LLE: 2+, RLE: 2+ Neurological: Yes: Oriented Labs: CBC, BMP 08/13/19 01:35 08/14/19 05:30 INR, PTT INR 0.97 (0.83-1.09) 08/13/19 01:35 Problem List - Problems (1) KD (acute kidney injury) Code(s): N17.9 - ACUTE KIDNEY FAILURE, UNSPECIFIED (2) COPD exacerbation Code(s): J44.1 - CHRONIC OBSTRUCTIVE PULMONARY DISEASE W (ACUTE) EXACERBATION Assessment/Plan Current Medications Generic Name Dose Route Start Last Admin Trade Name Freq PRN Reason Stop Dose Admin Albuterol/Ipratropium 1 amp 08/13/19 08:00 08/14/19 14:36 Duoneb - NEB Not Given RTID EPI Albuterol/Ipratropium 1 amp 08/13/19 05:59 Duoneb - NEB Q4H PRN SHORTNESS OF BREATH Budesonide/Formoterol Fumarate 2 puff 08/13/19 10:00 08/14/19 10:00 Symbicort 160/4.5mcg - IH 2 puff BID EPI Administration Heparin Sodium (Porcine) 5,000 unit 08/13/19 07:30 08/14/19 05:51 Heparin - SQ 5,000 unit TID EPI Administration Azithromycin 500 mg in 250 mls @ 250 mls/hr 08/14/19 10:00 08/14/19 09:47 Zithromax 500mg Ivpb (Pre-Docked) IVPB 250 mls/hr DAILY EPI Administration Ceftriaxone Sodium 1 gm/ 50 mls @ 100 mls/hr 08/13/19 10:00 08/14/19 09:46 Dextrose IVPB 100 mls/hr DAILY EPI Administration Protocol Insulin Aspart 1 vial 08/13/19 07:00 08/14/19 12:14 Novolog Vial Sliding Scale - SQ 12 units ACHS EPI Administration Protocol Insulin Detemir 14 units 08/14/19 22:00 Levemir Vial SQ 0700,2200 EPI Melatonin 5 mg 08/13/19 23:12 07/08/20 23:55 Melatonin PO 5 mg HS PRN Administration INSOMNIA Methylprednisolone Sodium Succinate 60 mg 08/13/19 06:00 08/14/19 05:51 Solu-Medrol - IVPUSH 60 mg Q8H EPI Administration Sertraline HCl 25 mg 08/14/19 13:45 Zoloft - PO DAILY EPI Laboratory Tests 08/13/19 08/14/19 08:10 05:30 B-Natriuretic Peptide 192.3 H Urine Protein Negative Urine Blood 2+ H Impression 1. KD 2. copd exacerbation 3. lower ext edema 4. chf 5. htn Plan - restart lasix - serologic workup - repeat ua - repeat labs in am - steroid with taper - check echo - pt appears more comfortable
--- NOTE | 2019-08-14 15:50 | ECHO ---
Name: FRANCINE DAVISON Exam:Adult Echocardiogram Study Date: 08/14/2019 02:00 PM Age: 63 yrs Reason For Study: CHF Height: 69 in Weight: 211 lb BSA: 2.1 m2 MMode/2D Measurements & Calculations IVSd: 1.1 cm Ao root diam: 2.5 cm LVIDd: 4.8 cm LA dimension: 2.8 cm LVIDs: 3.5 cm LVPWd: 0.87 cm EDV(Teich): 106.2 ml LVOT diam: 2.0 cm ESV(Teich): 49.8 ml LAV (MOD-bp): 49.5 ml Doppler Measurements & Calculations MV E max tristin: 54.3 cm/sec Ao V2 max: 190.0 cm/sec MV A max tristin: 99.4 cm/sec Ao max P.4 mmHg MV E/A: 0.55 MV dec time: 0.11 sec PAMELA(V,D): 1.5 cm2 LV V1 max P.5 mmHg TR max tristin: 226.7 cm/sec LV V1 max: 93.1 cm/sec TR max P.6 mmHg PA V2 max: 124.9 cm/sec Med Peak E' Tristin: 6.3 cm/sec PA max P.2 mmHg Med E/e': 8.6 Lat Peak E' Tristin: 8.7 cm/sec Lat E/e': 6.2 Procedure A complete two-dimensional transthoracic echocardiogram was performed (2D, M-mode, Doppler and color flow Doppler). Left Ventricle The left ventricular size, thickness and function are normal. Ejection Fraction = 60-65%. The left ve ntricular wall motion is normal. Right Ventricle The right ventricle is normal in size and function. Atria Normal left and right atrial size and function. Mitral Valve There is no mitral regurgitation noted. Tricuspid Valve There is trace tricuspid regurgitation. There was insufficient TR detected to calculate RV systolic p ressure. Aortic Valve No hemodynamically significant valvular aortic stenosis. No aortic regurgitation is present. Pulmonic Valve There is no pulmonic valvular regurgitation. Great Vessels The aortic root is normal size. Pericardium/Pleura There is no pericardial effusion. Interpretation Summary The left ventricular size, thickness and function are normal The right ventricle is normal in size and function. There is trace tricuspid regurgitation. MD Logan Moeller 08/14/2019 03:50 PM
[2019-08-14] MEDS: SERTRALINE HCL 25 MG TABLET (FP) PO SCH (16:24)
[2019-08-14] MEDS ORDERED: INSULIN (LEVEMIR) 100 UNITS/ML UNITS SQ ONE (16:48)
[2019-08-14] MEDS: INSULIN (LEVEMIR) 100 UNITS/ML UNITS SQ SCH ×2 (16:50→21:31)
[2019-08-14 19:02] LABS: URINE APPEARANCE CLEAR; URINE BILIRUBIN NEGATIVE (NEGATIVE); URINE COLOR YELLOW; URINE GLUCOSE (UA) 3+ (NEGATIVE); URINE KETONE NEGATIVE (NEGATIVE); URINE LEUK ESTERASE NEGATIVE (NEGATIVE); URINE NITRITE NEGATIVE (NEGATIVE); URINE PROTEIN NEGATIVE (NEGATIVE); URINE UROBILINOGEN 0.2 mg/dL (0.2-1.0)
[2019-08-14] MEDS ORDERED: INSULIN (NOVOLOG) ASPART 100 UNITS/ML 10ML VIAL ONE (21:07)
[2019-08-14] MEDS: MELATONIN 5 MG TABLETS PO PRN (21:39)
[2019-08-15] MEDS: INSULIN (LEVEMIR) 100 UNITS/ML UNITS SQ SCH ×2 (06:11→21:21)
[2019-08-15] MEDS: methylPREDNISolone NA SUCC 40 MG/1 ML VIAL IVPUSH SCH ×3 (06:11→17:46)
[2019-08-15] MEDS: HEPARIN NA (PORCINE) 5,000 UNITS/ML 1ML VIAL SQ SCH ×3 (06:11→21:21)
[2019-08-15] MEDS: INSULIN SLIDING SCALE (NOVOLOG) 1 VIAL SQ SCH ×4 (06:12→21:22)
[2019-08-15 07:38] LABS: ALBUMIN 2.8 g/dl (3.4-5.0); BILIRUBIN,TOTAL 0.4 mg/dL (0.2-1); BLOOD UREA NITROGEN 65.2 mg/dL (7-18); CALCIUM 8.9 mg/dL (8.5-10.1); CREATININE 1.5 mg/dL (0.55-1.3); POTASSIUM 4.6 mmol/L (3.5-5.1); TOT PROT 6.3 g/dl (6.4-8.2)
--- NOTE | 2019-08-15 07:52 | PN ---
Progress Note, Physician History of Present Illness: pulmonary alert,less dyspneic,+ cough,on nasal o2 2l saturating well - Current Medication List Current Medications: Active Medications Albuterol/Ipratropium (Duoneb -) 1 amp NEB RTID [facility] Last Admin: 08/14/19 20:30 Dose: 1 amp Documented by: Albuterol/Ipratropium (Duoneb -) 1 amp NEB Q4H PRN PRN Reason: SHORTNESS OF BREATH Last Admin: 08/14/19 18:34 Dose: 1 amp Documented by: Budesonide/Formoterol Fumarate (Symbicort 160/4.5mcg -) 2 puff IH BID [facility] Last Admin: 08/14/19 21:35 Dose: 2 puff Documented by: Heparin Sodium (Porcine) (Heparin -) 5,000 unit SQ TID [facility] Last Admin: 08/15/19 06:11 Dose: 5,000 unit Documented by: Azithromycin (Zithromax 500mg Ivpb (Pre-Docked)) 500 mg in 250 mls @ 250 mls/hr IVPB DAILY [facility] Last Admin: 08/14/19 09:47 Dose: 250 mls/hr Documented by: Ceftriaxone Sodium 1 gm/ (Dextrose) 50 mls @ 100 mls/hr IVPB DAILY [facility]; Protocol Last Admin: 08/14/19 09:46 Dose: 100 mls/hr Documented by: Insulin Aspart (Novolog Vial Sliding Scale -) 1 vial SQ ACHS [facility]; Protocol Last Admin: 08/15/19 06:12 Dose: 8 units Documented by: Insulin Detemir (Levemir Vial) 14 units SQ 0700,2200 [facility] Last Admin: 08/15/19 06:11 Dose: 14 units Documented by: Melatonin (Melatonin) 5 mg PO HS PRN PRN Reason: INSOMNIA Last Admin: 08/14/19 21:39 Dose: 5 mg Documented by: Methylprednisolone Sodium Succinate (Solu-Medrol -) 60 mg IVPUSH Q8H [facility] Last Admin: 08/15/19 06:11 Dose: 60 mg Documented by: Sertraline HCl (Zoloft -) 25 mg PO DAILY [facility] Last Admin: 08/14/19 16:24 Dose: 25 mg Documented by: - Objective Vital Signs: Vital Signs Temperature 98.2 F 08/15/19 05:58 Pulse Rate 86 08/15/19 05:58 Respiratory Rate 20 08/15/19 05:58 Blood Pressure 147/76 08/15/19 05:58 O2 Sat by Pulse Oximetry (%) 96 08/14/19 21:00 Constitutional: Yes: Well Nourished, Calm Eyes: Yes: WNL HENT: Yes: WNL Neck: Yes: WNL Cardiovascular: Yes: Regular Rate and Rhythm, S1, S2 Respiratory: Yes: Wheezes (few scattered kiara wheezes) Gastrointestinal: Yes: Normal Bowel Sounds, Soft Extremities: Yes: WNL Edema: No Labs: CBC, BMP 08/13/19 01:35 08/15/19 05:29 Assessment/Plan Problem List - Problems (1) COPD exacerbation Code(s): J44.1 - CHRONIC OBSTRUCTIVE PULMONARY DISEASE W (ACUTE) EXACERBATION Assessment/Plan Acute COPD Exacerbation clinically improving Acute Bronchitis Acute on Chronic Renal Failure LV Diastolic Dysfunction HTN DM Hyperlipidemia - IV medrol taper - empiric antibiotics - inhaled bronchodilators - O2 to keep SpO2 >90% - lasix as needed - monitor urine output, creatinine - DVT prophylaxis DR ALMANZA
[2019-08-15] MEDS: ALBUTEROL SO4 2.5/IPRATROPIUM 0.5 INH SOL 3 ML VIAL.NEB. NEB SCH ×3 (08:11→21:20)
[2019-08-15] MEDS ORDERED: cefTRIAXone SODIUM 1 GM VIAL ONE (08:21)
[2019-08-15] MEDS ORDERED: DEXTROSE 5%-WATER - 50 ML IVPB ONE (08:21)
[2019-08-15] MEDS: AZITHROMYCIN IVPB 500 MG/250 ML BAG IVPB SCH (09:29)
[2019-08-15] MEDS: SERTRALINE HCL 25 MG TABLET (FP) PO SCH (09:30)
[2019-08-15] MEDS: CEFTRIAXONE 1 GM in DEXTROSE 5%-WATER - 50 ML IVPB SCH (09:30)
[2019-08-15] MEDS: BUDESONIDE/FORMETEROL FUMARATE 160/4.5 mcg INHALER IH SCH ×2 (09:31→21:22)
--- NOTE | 2019-08-15 10:23 | PN ---
Progress Note, Physician History of Present Illness: Pt seen/ examined chart is reviewed still sob/ wheezing irritating eyes pain in hips R>L when moving Denies cp BGm also running high - Current Medication List Current Medications: Active Medications Albuterol/Ipratropium (Duoneb -) 1 amp NEB RTID [facility] Last Admin: 08/15/19 08:11 Dose: 1 amp Documented by: Albuterol/Ipratropium (Duoneb -) 1 amp NEB Q4H PRN PRN Reason: SHORTNESS OF BREATH Last Admin: 08/14/19 18:34 Dose: 1 amp Documented by: Budesonide/Formoterol Fumarate (Symbicort 160/4.5mcg -) 2 puff IH BID [facility] Last Admin: 08/15/19 09:31 Dose: 2 puff Documented by: Heparin Sodium (Porcine) (Heparin -) 5,000 unit SQ TID [facility] Last Admin: 08/15/19 06:11 Dose: 5,000 unit Documented by: Azithromycin (Zithromax 500mg Ivpb (Pre-Docked)) 500 mg in 250 mls @ 250 mls/hr IVPB DAILY [facility] Last Admin: 08/15/19 09:29 Dose: 250 mls/hr Documented by: Ceftriaxone Sodium 1 gm/ (Dextrose) 50 mls @ 100 mls/hr IVPB DAILY [facility]; Protocol Last Admin: 08/15/19 09:30 Dose: 100 mls/hr Documented by: Insulin Aspart (Novolog Vial Sliding Scale -) 1 vial SQ ACHS [facility]; Protocol Last Admin: 08/15/19 06:12 Dose: 8 units Documented by: Insulin Detemir (Levemir Vial) 18 units SQ 0700,2200 [facility] Melatonin (Melatonin) 5 mg PO HS PRN PRN Reason: INSOMNIA Last Admin: 08/14/19 21:39 Dose: 5 mg Documented by: Methylprednisolone Sodium Succinate (Solu-Medrol -) 60 mg IVPUSH Q8H [facility] Last Admin: 08/15/19 06:11 Dose: 60 mg Documented by: Sertraline HCl (Zoloft -) 25 mg PO DAILY [facility] Last Admin: 08/15/19 09:30 Dose: 25 mg Documented by: Tetrahydrozoline HCl (Visine -) 1 drop OD BID PRN PRN Reason: ALLERGIES - Objective Vital Signs: Vital Signs Temperature 98.2 F 08/15/19 05:58 Pulse Rate 86 08/15/19 05:58 Respiratory Rate 20 08/15/19 05:58 Blood Pressure 147/76 08/15/19 05:58 O2 Sat by Pulse Oximetry (%) 96 08/14/19 21:00 Constitutional: Yes: Anxious. No: No Distress Eyes: Yes: Conjunctiva Clear Neck: Yes: Supple Cardiovascular: Yes: Regular Rate and Rhythm Respiratory: Yes: Wheezes Gastrointestinal: Yes: Soft Edema: No Neurological: Yes: Alert Labs: CBC, BMP 08/13/19 01:35 08/15/19 05:29 INR, PTT INR 0.97 (0.83-1.09) 08/13/19 01:35 Problem List - Problems (1) Uncontrolled blood glucose Code(s): R73.09 - OTHER ABNORMAL GLUCOSE (2) COPD exacerbation Code(s): J44.1 - CHRONIC OBSTRUCTIVE PULMONARY DISEASE W (ACUTE) EXACERBATION (3) Renal insufficiency Code(s): N28.9 - DISORDER OF KIDNEY AND URETER, UNSPECIFIED (4) Hip osteoarthritis Code(s): M16.9 - OSTEOARTHRITIS OF HIP, UNSPECIFIED Assessment/Plan Discussed with pt/ RN Visine eye drops Increase levemir Abs Steroids Nebulizer PT oob- chair Orthopedics Consult
[2019-08-15] MEDS ORDERED: oxyCODONE HCL 5 MG TABLET PO PRN (10:25)
[2019-08-15] MEDS: TETRAHYDROZOLINE HCL EYE DROPS OD PRN (11:31)
--- NOTE | 2019-08-15 13:20 | PN ---
Progress Note, Physician History of Present Illness: Pt seen and examined at bedside. She is awake and alert. She denies shortness of breath. SHe still has lower ext edema. - Current Medication List Current Medications: Active Medications Albuterol/Ipratropium (Duoneb -) 1 amp NEB RTID [facility] Last Admin: 08/15/19 08:11 Dose: 1 amp Documented by: Albuterol/Ipratropium (Duoneb -) 1 amp NEB Q4H PRN PRN Reason: SHORTNESS OF BREATH Last Admin: 08/14/19 18:34 Dose: 1 amp Documented by: Budesonide/Formoterol Fumarate (Symbicort 160/4.5mcg -) 2 puff IH BID [facility] Last Admin: 08/15/19 09:31 Dose: 2 puff Documented by: Heparin Sodium (Porcine) (Heparin -) 5,000 unit SQ TID [facility] Last Admin: 08/15/19 13:13 Dose: 5,000 unit Documented by: Azithromycin (Zithromax 500mg Ivpb (Pre-Docked)) 500 mg in 250 mls @ 250 mls/hr IVPB DAILY [facility] Last Admin: 08/15/19 09:29 Dose: 250 mls/hr Documented by: Ceftriaxone Sodium 1 gm/ (Dextrose) 50 mls @ 100 mls/hr IVPB DAILY [facility]; Protocol Last Admin: 08/15/19 09:30 Dose: 100 mls/hr Documented by: Insulin Aspart (Novolog Vial Sliding Scale -) 1 vial SQ ACHS [facility]; Protocol Last Admin: 08/15/19 11:31 Dose: 10 units Documented by: Insulin Detemir (Levemir Vial) 18 units SQ 0700,2200 [facility] Melatonin (Melatonin) 5 mg PO HS PRN PRN Reason: INSOMNIA Last Admin: 08/14/19 21:39 Dose: 5 mg Documented by: Methylprednisolone Sodium Succinate (Solu-Medrol -) 40 mg IVPUSH Q8H-IV [facility] Last Admin: 08/15/19 13:13 Dose: 40 mg Documented by: Oxycodone HCl (Roxicodone -) 5 mg PO Q8H PRN PRN Reason: PAIN LEVEL 6-10 Sertraline HCl (Zoloft -) 25 mg PO DAILY [facility] Last Admin: 08/15/19 09:30 Dose: 25 mg Documented by: Tetrahydrozoline HCl (Visine -) 1 drop OD BID PRN PRN Reason: ALLERGIES Last Admin: 08/15/19 11:31 Dose: 1 drop Documented by: - Objective Vital Signs: Vital Signs Temperature 98.1 F 08/15/19 10:00 Pulse Rate 104 H 08/15/19 10:00 Respiratory Rate 18 08/15/19 10:00 Blood Pressure 144/69 08/15/19 10:00 O2 Sat by Pulse Oximetry (%) 96 08/15/19 09:00 Constitutional: Yes: Calm Eyes: Yes: Conjunctiva Clear HENT: Yes: Atraumatic Neck: Yes: Supple Cardiovascular: Yes: S1, S2 Respiratory: Yes: CTA Bilaterally Gastrointestinal: Yes: Soft Genitourinary: Yes: WNL Musculoskeletal: Yes: WNL Edema: Yes Edema: LLE: 2+, RLE: 2+ Neurological: Yes: Oriented Psychiatric: Yes: Oriented Labs: CBC, BMP 08/13/19 01:35 08/15/19 05:29 INR, PTT INR 0.97 (0.83-1.09) 08/13/19 01:35 Problem List - Problems (1) KD (acute kidney injury) Code(s): N17.9 - ACUTE KIDNEY FAILURE, UNSPECIFIED (2) COPD exacerbation Code(s): J44.1 - CHRONIC OBSTRUCTIVE PULMONARY DISEASE W (ACUTE) EXACERBATION Assessment/Plan Current Medications Generic Name Dose Route Start Last Admin Trade Name Freq PRN Reason Stop Dose Admin Albuterol/Ipratropium 1 amp 08/13/19 08:00 08/15/19 08:11 Duoneb - NEB 1 amp RTID EPI Administration Albuterol/Ipratropium 1 amp 08/13/19 05:59 08/14/19 18:34 Duoneb - NEB 1 amp Q4H PRN Administration SHORTNESS OF BREATH Budesonide/Formoterol Fumarate 2 puff 08/13/19 10:00 08/15/19 09:31 Symbicort 160/4.5mcg - IH 2 puff BID EPI Administration Heparin Sodium (Porcine) 5,000 unit 08/13/19 07:30 08/15/19 13:13 Heparin - SQ 5,000 unit TID EPI Administration Azithromycin 500 mg in 250 mls @ 250 mls/hr 08/14/19 10:00 08/15/19 09:29 Zithromax 500mg Ivpb (Pre-Docked) IVPB 250 mls/hr DAILY EPI Administration Ceftriaxone Sodium 1 gm/ 50 mls @ 100 mls/hr 08/13/19 10:00 08/15/19 09:30 Dextrose IVPB 100 mls/hr DAILY EPI Administration Protocol Insulin Aspart 1 vial 08/13/19 07:00 08/15/19 11:31 Novolog Vial Sliding Scale - SQ 10 units ACHS EPI Administration Protocol Insulin Detemir 18 units 08/15/19 10:16 Levemir Vial SQ 0700,2200 EPI Melatonin 5 mg 08/13/19 23:12 08/14/19 21:39 Melatonin PO 5 mg HS PRN Administration INSOMNIA Methylprednisolone Sodium Succinate 40 mg 08/15/19 11:42 08/15/19 13:13 Solu-Medrol - IVPUSH 40 mg Q8H-IV EPI Administration Oxycodone HCl 5 mg 08/15/19 10:25 Roxicodone - PO Q8H PRN PAIN LEVEL 6-10 Sertraline HCl 25 mg 08/14/19 13:45 08/15/19 09:30 Zoloft - PO 25 mg DAILY EPI Administration Tetrahydrozoline HCl 1 drop 08/15/19 10:19 08/15/19 11:31 Visine - OD 1 drop BID PRN Administration ALLERGIES Laboratory Tests 08/13/19 08/14/19 08:10 17:50 Urine Protein Negative Negative Impression 1. KD 2. copd exacerbation 3. lower ext edema 4. chf 5. 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
--- NOTE | 2019-08-15 13:32 | CONSULT ---
Consult - text type - Consultation Consultation Note: ORTHOPEDIC SURGERY CONSULTATION NOTE Department of Orthopedic Surgery HISTORY OF PRESENT ILLNESS Araceli Cruz is a 63 year old female with a past medical history significant for asthma, COPD, CHF, HTN, and HLD. She was admitted to [facility] 3 days ago with respiratory distress. The orthopedic service was consulted for right hip pain. The patient reports chronic right hip pain for over 2 years. She states she was scheduled for a hip replacement 1 year ago but never had the surgery. She also complains of bilateral knee pain. She denies any recent injury or fall. The patient notes right groin pain and bilateral knee pain which improves with rest. Denies any other bone or joint pain. Denies numbness, tingling or other constitutional complaints. Denies tobacco use, drug use, alcohol abuse. The patient lives at [facility] and uses a wheelchair and walker at baseline. Active Problems Problem Status Category Onset KD (acute kidney injury) Acute Medical Acute and chronic respiratory failure with hypoxia Acute Medical Hip osteoarthritis Acute Medical Renal insufficiency Acute Medical Uncontrolled blood glucose Acute Medical Past Medical History Cardio/Vascular CHF,HTN Pulmonary Asthma,COPD Psych Depression Social History Smoking history Never smoked Hx Alcohol Use No Allergies Allergy/AdvReac Type Severity Reaction Status Date / Time No Known Allergies Allergy Verified 08/12/19 23:24 Active Medications Generic Name Dose Route Start Last Admin Trade Name Freq PRN Reason Stop Dose Admin Albuterol/Ipratropium 1 amp 08/13/19 08:00 08/15/19 08:11 Duoneb - NEB 1 amp RTID EPI Administration Albuterol/Ipratropium 1 amp 08/13/19 05:59 08/14/19 18:34 Duoneb - NEB 1 amp Q4H PRN Administration SHORTNESS OF BREATH Budesonide/Formoterol Fumarate 2 puff 08/13/19 10:00 08/15/19 09:31 Symbicort 160/4.5mcg - IH 2 puff BID EPI Administration Furosemide 40 mg 08/15/19 13:30 Lasix - PO DAILY EPI Heparin Sodium (Porcine) 5,000 unit 08/13/19 07:30 08/15/19 13:13 Heparin - SQ 5,000 unit TID EPI Administration Azithromycin 500 mg in 250 mls @ 250 mls/hr 08/14/19 10:00 08/15/19 09:29 Zithromax 500mg Ivpb (Pre-Docked) IVPB 250 mls/hr DAILY EPI Administration Ceftriaxone Sodium 1 gm/ 50 mls @ 100 mls/hr 08/13/19 10:00 08/15/19 09:30 Dextrose IVPB 100 mls/hr DAILY EPI Administration Protocol Insulin Aspart 1 vial 08/13/19 07:00 08/15/19 11:31 Novolog Vial Sliding Scale - SQ 10 units ACHS EPI Administration Protocol Insulin Detemir 18 units 08/15/19 10:16 Levemir Vial SQ 0700,2200 EPI Melatonin 5 mg 08/13/19 23:12 08/14/19 21:39 Melatonin PO 5 mg HS PRN Administration INSOMNIA Methylprednisolone Sodium Succinate 40 mg 08/15/19 11:42 08/15/19 13:13 Solu-Medrol - IVPUSH 40 mg Q8H-IV EPI Administration Oxycodone HCl 5 mg 08/15/19 10:25 Roxicodone - PO Q8H PRN PAIN LEVEL 6-10 Sertraline HCl 25 mg 08/14/19 13:45 08/15/19 09:30 Zoloft - PO 25 mg DAILY EPI Administration Tetrahydrozoline HCl 1 drop 08/15/19 10:19 08/15/19 11:31 Visine - OD 1 drop BID PRN Administration ALLERGIES Vital Signs (last) Temp Pulse Resp BP Pulse Ox 98.1 F 104 H 18 144/69 96 08/15/19 10:00 08/15/19 10:00 08/15/19 10:00 08/15/19 10:00 08/15/19 09:00 Intake and Output 08/13/19 08/14/19 08/15/19 23:59 23:59 23:59 Intake Total 450 1200 200 Output Total 500 1700 Balance -50 -500 200 Intake: IVPB 300 Oral 450 600 200 TPN/PPN 300 Output: Urine 500 1700 Void 500 1700 Other: Voiding Method External Catheter External Catheter External Catheter # Unmeasured Voids Void 1 Bowel Movement Yes Yes # Bowel Movements 1 1 Weight 211 lb Height 5 ft 9 in Body Mass Index (BMI) 31.1 Weight Measurement Method Estimated by Patient Laboratory 08/13/19 01:35 08/15/19 05:29 PT with INR 11.50 SEC (9.7-13.0) 08/13/19 01:35 PTT (Actin FS) 31.8 SECONDS (25.2-36.5) 08/13/19 01:35 FAMILY HISTORY Reviewed and noncontributory. REVIEW OF SYMPTOMS A twelve-point review of systems was performed and was negative except as noted in HPI. PHYSICAL EXAM Constitutional: Alert and oriented to person, place, and time. Appears well- developed and well-nourished. No acute distress, appropriate mood and affect. Right Upper Extremity: No tenderness to palpation. Full passive and active ROM, free from pain. Left Upper Extremity: No tenderness to palpation. Full passive and active ROM, free from pain. Right Lower Extremity: Skin warm, dry, and intact; no lesions, rashes or ulcers noted. Muscle mass equal and symmetric to contralateral side. No atrophy noted. No masses or effusions noted. There is a hip and knee flexion contracture. Tender to papation at the right knee media joint space; nontender throughout rest of extremity. Pain with active and passive hip and knee range of motion; Knee ROM 15-60 with pain and crepitus. No cords or calf tenderness. Bilateral calf/ankle edema. Joints stable with no pathologic laxity. EHL/TA/GS motor intact; SILT distally; 2+ DP pulses; Cap refill brisk. Tone and reflexes normal. Left Lower Extremity: Skin warm, dry, and intact; no lesions, rashes or ulcers noted. Muscle mass equal and symmetric to contralateral side. No atrophy noted. No masses or effusions noted. Tender to papation at the left knee media joint space; nontender throughout rest of extremity. Pain with active and passive knee range of motion; Knee ROM 15-100 with pain and crepitus. No cords or calf tenderness. Bilateral calf/ankle edema. Joints stable with no pathologic laxity. EHL/TA/GS motor intact; SILT distally; 2+ DP pulses; Cap refill brisk. Tone and reflexes normal. IMAGING AP Pelvis and right hip radiographs from 06/02/2019 were personally reviewed by me today. They demonstrate severe degenerative changes of the right hip and mild degenerative changes of the left hip. No fracture or dislocation noted. Doppler US negative for DVT. There is a Wilkinson's cyst in the left popliteal fossa. ASSESSMENT AND PLAN Araceli Cruz is a 63 year old female presenting with right hip arthritis and bilateral knee pain, also likely due to arthritis. We have reviewed the imaging and clinical findings in detail, as well as their potential implications. We discussed treatment options for arthritis, including nonoperative and surgical management. She is not a surgical candidate at this time given her current condition. She can follow up as an outpatient and we can discuss treatment options further. - No acute orthopedic intervention at this time. - Will obtain bilateral knee radiographs and updated right hip radiographs. - Pain control: Transition to oral pain medications, minimize narcotic use - DVT prophylaxis - Elevate HOB, encourage oral intake - Appreciate medical management - Nutrition optimization, decubitus precautions heel/sacrum - PT/OT; WBAT All questions were answered. Thank you for involving our team in the care of this patient. Please have patient follow up in our office in 1-2 weeks [phone]
[2019-08-15] MEDS: FUROSEMIDE 40 MG TABLET (FP) PO SCH (14:16)
[2019-08-15] MEDS: MELATONIN 5 MG TABLETS PO PRN (21:29)
[2019-08-16] MEDS: methylPREDNISolone NA SUCC 40 MG/1 ML VIAL IVPUSH SCH ×3 (01:15→21:27)
[2019-08-16] MEDS: HEPARIN NA (PORCINE) 5,000 UNITS/ML 1ML VIAL SQ SCH ×3 (05:58→21:25)
[2019-08-16] MEDS: INSULIN (LEVEMIR) 100 UNITS/ML UNITS SQ SCH ×2 (06:00→21:25)
[2019-08-16] MEDS: INSULIN SLIDING SCALE (NOVOLOG) 1 VIAL SQ SCH ×4 (06:01→21:26)
--- NOTE | 2019-08-16 07:04 | PN ---
Progress Note, Physician History of Present Illness: pulmonary alert,comfortable ,less dyspneic,less cough - Current Medication List Current Medications: Active Medications Albuterol/Ipratropium (Duoneb -) 1 amp NEB RTID [facility] Last Admin: 08/15/19 21:20 Dose: Not Given Documented by: Albuterol/Ipratropium (Duoneb -) 1 amp NEB Q4H PRN PRN Reason: SHORTNESS OF BREATH Last Admin: 08/14/19 18:34 Dose: 1 amp Documented by: Budesonide/Formoterol Fumarate (Symbicort 160/4.5mcg -) 2 puff IH BID [facility] Last Admin: 08/15/19 21:22 Dose: 2 puff Documented by: Furosemide (Lasix -) 40 mg PO DAILY [facility] Last Admin: 08/15/19 14:16 Dose: 40 mg Documented by: Heparin Sodium (Porcine) (Heparin -) 5,000 unit SQ TID [facility] Last Admin: 08/16/19 05:58 Dose: 5,000 unit Documented by: Azithromycin (Zithromax 500mg Ivpb (Pre-Docked)) 500 mg in 250 mls @ 250 mls/hr IVPB DAILY [facility] Last Admin: 08/15/19 09:29 Dose: 250 mls/hr Documented by: Ceftriaxone Sodium 1 gm/ (Dextrose) 50 mls @ 100 mls/hr IVPB DAILY [facility]; Protocol Last Admin: 08/15/19 09:30 Dose: 100 mls/hr Documented by: Insulin Aspart (Novolog Vial Sliding Scale -) 1 vial SQ ACHS [facility]; Protocol Last Admin: 08/16/19 06:01 Dose: 4 units Documented by: Insulin Detemir (Levemir Vial) 18 units SQ 0700,2200 [facility] Last Admin: 08/16/19 06:00 Dose: 18 units Documented by: Melatonin (Melatonin) 5 mg PO HS PRN PRN Reason: INSOMNIA Last Admin: 08/15/19 21:29 Dose: 5 mg Documented by: Methylprednisolone Sodium Succinate (Solu-Medrol -) 40 mg IVPUSH Q8H-IV [facility] Last Admin: 08/16/19 01:15 Dose: 40 mg Documented by: Oxycodone HCl (Roxicodone -) 5 mg PO Q8H PRN PRN Reason: PAIN LEVEL 6-10 Sertraline HCl (Zoloft -) 25 mg PO DAILY EPI Last Admin: 08/15/19 09:30 Dose: 25 mg Documented by: Tetrahydrozoline HCl (Visine -) 1 drop OD BID PRN PRN Reason: ALLERGIES Last Admin: 08/15/19 11:31 Dose: 1 drop Documented by: - Objective Vital Signs: Vital Signs Temperature 98.7 F 08/16/19 06:00 Pulse Rate 79 08/16/19 06:00 Respiratory Rate 18 08/16/19 06:00 Blood Pressure 165/91 08/16/19 06:00 O2 Sat by Pulse Oximetry (%) 94 L 08/15/19 21:00 Constitutional: Yes: Well Nourished, Calm Eyes: Yes: WNL HENT: Yes: WNL Neck: Yes: WNL Cardiovascular: Yes: Regular Rate and Rhythm, S1, S2 Respiratory: Yes: Rhonchi (few scattered kiara rhonchi) Gastrointestinal: Yes: Normal Bowel Sounds, Soft Extremities: Yes: WNL Edema: No Labs: CBC, BMP Assessment/Plan Problem List - Problems (1) COPD exacerbation Code(s): J44.1 - CHRONIC OBSTRUCTIVE PULMONARY DISEASE W (ACUTE) EXACERBATION Assessment/Plan Acute COPD Exacerbation clinically improving Acute Bronchitis Acute on Chronic Renal Failure LV Diastolic Dysfunction HTN DM Hyperlipidemia - IV medrol - empiric antibiotics - inhaled bronchodilators - O2 to keep SpO2 >90% - lasix as needed - monitor urine output, creatinine - DVT prophylaxis DR ALMANZA
[2019-08-16] MEDS ORDERED: cefTRIAXone SODIUM 1 GM VIAL ONE (07:55)
[2019-08-16] MEDS ORDERED: DEXTROSE 5%-WATER - 50 ML IVPB ONE (07:55)
[2019-08-16] MEDS: ALBUTEROL SO4 2.5/IPRATROPIUM 0.5 INH SOL 3 ML VIAL.NEB. NEB SCH ×3 (08:06→20:19)
[2019-08-16] MEDS: SERTRALINE HCL 25 MG TABLET (FP) PO SCH (09:07)
[2019-08-16] MEDS: FUROSEMIDE 40 MG TABLET (FP) PO SCH (09:07)
[2019-08-16] MEDS: AZITHROMYCIN IVPB 500 MG/250 ML BAG IVPB SCH (09:08)
[2019-08-16] MEDS: BUDESONIDE/FORMETEROL FUMARATE 160/4.5 mcg INHALER IH SCH ×2 (09:08→21:28)
[2019-08-16] MEDS: TETRAHYDROZOLINE HCL EYE DROPS OD PRN (09:17)
--- NOTE | 2019-08-16 13:13 | PN ---
Progress Note, Physician History of Present Illness: Pt seen/ examined looks / feels better ortho consult noted / appreciated - Current Medication List Current Medications: Active Medications Albuterol/Ipratropium (Duoneb -) 1 amp NEB RTID [facility] Last Admin: 08/16/19 08:06 Dose: 1 amp Documented by: Albuterol/Ipratropium (Duoneb -) 1 amp NEB Q4H PRN PRN Reason: SHORTNESS OF BREATH Last Admin: 08/14/19 18:34 Dose: 1 amp Documented by: Budesonide/Formoterol Fumarate (Symbicort 160/4.5mcg -) 2 puff IH BID [facility] Last Admin: 08/16/19 09:08 Dose: 2 puff Documented by: Furosemide (Lasix -) 40 mg PO DAILY [facility] Last Admin: 08/16/19 09:07 Dose: 40 mg Documented by: Heparin Sodium (Porcine) (Heparin -) 5,000 unit SQ TID [facility] Last Admin: 08/16/19 05:58 Dose: 5,000 unit Documented by: Azithromycin (Zithromax 500mg Ivpb (Pre-Docked)) 500 mg in 250 mls @ 250 mls/hr IVPB DAILY [facility] Last Admin: 08/16/19 09:08 Dose: 250 mls/hr Documented by: Insulin Aspart (Novolog Vial Sliding Scale -) 1 vial SQ ACHS [facility]; Protocol Last Admin: 08/16/19 11:46 Dose: 8 units Documented by: Insulin Detemir (Levemir Vial) 22 units SQ 0700,2200 [facility] Melatonin (Melatonin) 5 mg PO HS PRN PRN Reason: INSOMNIA Last Admin: 08/15/19 21:29 Dose: 5 mg Documented by: Methylprednisolone Sodium Succinate (Solu-Medrol -) 40 mg IVPUSH Q8H-IV [facility] Last Admin: 08/16/19 09:07 Dose: 40 mg Documented by: Oxycodone HCl (Roxicodone -) 5 mg PO Q8H PRN PRN Reason: PAIN LEVEL 6-10 Sertraline HCl (Zoloft -) 25 mg PO DAILY [facility] Last Admin: 08/16/19 09:07 Dose: 25 mg Documented by: Tetrahydrozoline HCl (Visine -) 1 drop OD BID PRN PRN Reason: ALLERGIES Last Admin: 07/11/20 09:17 Dose: 1 drop Documented by: - Objective Vital Signs: Vital Signs Temperature 98.4 F 08/16/19 10:00 Pulse Rate 91 H 08/16/19 10:00 Respiratory Rate 08/16/19 10:00 Blood Pressure 160/79 08/16/19 10:00 O2 Sat by Pulse Oximetry (%) 95 08/16/19 08:16 Constitutional: Yes: No Distress Eyes: Yes: Conjunctiva Clear HENT: Yes: Other (no thrush) Neck: Yes: Supple Cardiovascular: Yes: Regular Rate and Rhythm Respiratory: Yes: Rhonchi (improved) Gastrointestinal: Yes: Soft Edema: No Neurological: Yes: Alert Labs: CBC, BMP 08/13/19 01:35 08/15/19 05:29 INR, PTT INR 0.97 (0.83-1.09) 08/13/19 01:35 Problem List - Problems (1) Uncontrolled blood glucose Code(s): R73.09 - OTHER ABNORMAL GLUCOSE (2) COPD exacerbation Code(s): J44.1 - CHRONIC OBSTRUCTIVE PULMONARY DISEASE W (ACUTE) EXACERBATION (3) Renal insufficiency Code(s): N28.9 - DISORDER OF KIDNEY AND URETER, UNSPECIFIED (4) Hip osteoarthritis Code(s): M16.9 - OSTEOARTHRITIS OF HIP, UNSPECIFIED Assessment/Plan Better Increase levemir. Abx Steroids- taper Nebulizer PT oob- chair will follow
--- NOTE | 2019-08-16 13:18 | PN ---
Progress Note (short form) - Note Progress Note: IMAGING AP Pelvis and right hip radiographs were reviewed. They show severe degenerative changes of the right hip and mild degenerative changes of the left hip with no fracture, dislocation or bony lesions. There are no significant interval changes since radiographs obtained in May 2019. Radiographs of bilateral knees were reviewed. They show severe degenerative changes bilaterally with joint space narrowing, subchondral sclerosis, and osteophyte formation. There is a soft tissue calcification in the suprapatellar region of the left knee which may represent a loose body or bony/soft tissue lesion. No fracture or dislocation noted. ASSESSMENT AND PLAN Araceli Cruz is a 63 year old female presenting with severe degenerative joint disease involving the right hip and bilateral knees. She has a left knee soft tissue calcification in the suprapatellar region which may represent a loose body or other bony/soft tissue lesion. She will require further imaging of the left knee to workup this soft tissue calcification. We will order an MRI of the left knee. If this can not be done as an inpatient and the patient is otherwise ready for discharge, we can obtain it as an outpatient. - Pain control: minimize narcotic use - DVT prophylaxis - Ice/Elevation - Elevate HOB, encourage oral intake - Appreciate medical management - Nutrition optimization - Decubitus precautions heel/sacrum) - PT/OT; WBAT Status Thank you for involving our team in the care of this patient. Please have patient follow up in our office in 1 week after discharge [phone].
[2019-08-16] MEDS: amLODIPine BESYLATE 5 MG TABLET (FP) PO SCH (14:25)
[2019-08-16 20:10] LABS: HEP B CORE AB, TOT Positive (Negative)
[2019-08-16] MEDS ORDERED: PT OWN MED DRAWER 7, Y5N ONE (21:11)
[2019-08-16] MEDS: MELATONIN 5 MG TABLETS PO PRN (21:28)
[2019-08-17] MEDS: HEPARIN NA (PORCINE) 5,000 UNITS/ML 1ML VIAL SQ SCH ×3 (05:58→21:16)
[2019-08-17] MEDS: INSULIN SLIDING SCALE (NOVOLOG) 1 VIAL SQ SCH ×4 (06:04→21:17)
[2019-08-17] MEDS: INSULIN (LEVEMIR) 100 UNITS/ML UNITS SQ SCH ×2 (06:06→21:16)
[2019-08-17 07:10] LABS: BLOOD UREA NITROGEN 46.7 mg/dL (7-18); CALCIUM 9.1 mg/dL (8.5-10.1); CREATININE 1.2 mg/dL (0.55-1.3); POTASSIUM 4.4 mmol/L (3.5-5.1)
--- NOTE | 2019-08-17 07:41 | PN ---
Progress Note, Physician History of Present Illness: PULMONARY ALERT,TREMULOUS,MILDLY DYSPNEIC - Current Medication List Current Medications: Active Medications Albuterol/Ipratropium (Duoneb -) 1 amp NEB RTID [facility] Last Admin: 08/16/19 20:19 Dose: 1 amp Documented by: Albuterol/Ipratropium (Duoneb -) 1 amp NEB Q4H PRN PRN Reason: SHORTNESS OF BREATH Last Admin: 08/14/19 18:34 Dose: 1 amp Documented by: Amlodipine Besylate (Norvasc -) 5 mg PO DAILY [facility] Last Admin: 08/16/19 14:25 Dose: 5 mg Documented by: Budesonide/Formoterol Fumarate (Symbicort 160/4.5mcg -) 2 puff IH BID [facility] Last Admin: 08/16/19 21:28 Dose: 2 puff Documented by: Furosemide (Lasix -) 40 mg PO DAILY [facility] Last Admin: 08/16/19 09:07 Dose: 40 mg Documented by: Heparin Sodium (Porcine) (Heparin -) 5,000 unit SQ TID [facility] Last Admin: 08/17/19 05:58 Dose: Not Given Documented by: Azithromycin (Zithromax 500mg Ivpb (Pre-Docked)) 500 mg in 250 mls @ 250 mls/hr IVPB DAILY [facility] Last Admin: 08/16/19 09:08 Dose: 250 mls/hr Documented by: Insulin Aspart (Novolog Vial Sliding Scale -) 1 vial SQ ACHS [facility]; Protocol Last Admin: 08/17/19 06:04 Dose: Not Given Documented by: Insulin Detemir (Levemir Vial) 22 units SQ 0700,2200 [facility] Last Admin: 08/17/19 06:06 Dose: 22 units Documented by: Melatonin (Melatonin) 5 mg PO HS PRN PRN Reason: INSOMNIA Last Admin: 08/16/19 21:28 Dose: 5 mg Documented by: Methylprednisolone Sodium Succinate (Solu-Medrol -) 40 mg IVPUSH BID [facility] Last Admin: 08/16/19 21:27 Dose: 40 mg Documented by: Oxycodone HCl (Roxicodone -) 5 mg PO Q8H PRN PRN Reason: PAIN LEVEL 6-10 Last Admin: 08/16/19 21:28 Dose: 5 mg Documented by: Sertraline HCl (Zoloft -) 25 mg PO DAILY [facility] Last Admin: 08/16/19 09:07 Dose: 25 mg Documented by: Tetrahydrozoline HCl (Visine -) 1 drop OD BID PRN PRN Reason: ALLERGIES Last Admin: 08/16/19 09:17 Dose: 1 drop Documented by: - Objective Vital Signs: Vital Signs Temperature 98.2 F 08/17/19 05:50 Pulse Rate 74 08/17/19 05:50 Respiratory Rate 20 08/17/19 05:50 Blood Pressure 155/89 08/17/19 05:50 O2 Sat by Pulse Oximetry (%) 95 08/16/19 21:00 Constitutional: Yes: Well Nourished, Anxious Eyes: Yes: WNL HENT: Yes: WNL Neck: Yes: WNL Cardiovascular: Yes: Regular Rate and Rhythm, S1, S2 Respiratory: Yes: Rhonchi (FEW SCATTERED RHONCHI) Gastrointestinal: Yes: Normal Bowel Sounds, Soft Extremities: Yes: WNL Edema: No Labs: Assessment/Plan Problem List - Problems (1) COPD exacerbation Code(s): J44.1 - CHRONIC OBSTRUCTIVE PULMONARY DISEASE W (ACUTE) EXACERBATION Assessment/Plan Acute COPD Exacerbation clinically improving Acute Bronchitis Acute on Chronic Renal Failure LV Diastolic Dysfunction HTN DM Hyperlipidemia - IV medrol same dose - empiric antibiotics - inhaled bronchodilators - O2 to keep SpO2 >90% - lasix as needed - monitor urine output, creatinine - DVT prophylaxis - abg DR ALMANZA
[2019-08-17] MEDS: ALBUTEROL SO4 2.5/IPRATROPIUM 0.5 INH SOL 3 ML VIAL.NEB. NEB SCH ×3 (08:34→20:52)
--- NOTE | 2019-08-17 10:31 | PN ---
Progress Note, Physician History of Present Illness: Pt seen/ examined anxious wants something to calm down her nerves. breathing better - Current Medication List Current Medications: Active Medications Albuterol/Ipratropium (Duoneb -) 1 amp NEB RTID [facility] Last Admin: 08/17/19 08:34 Dose: 1 amp Documented by: Albuterol/Ipratropium (Duoneb -) 1 amp NEB Q4H PRN PRN Reason: SHORTNESS OF BREATH Last Admin: 08/14/19 18:34 Dose: 1 amp Documented by: Alprazolam (Xanax -) 0.25 mg PO BID PRN PRN Reason: ANXIETY Amlodipine Besylate (Norvasc -) 5 mg PO DAILY [facility] Last Admin: 08/16/19 14:25 Dose: 5 mg Documented by: Budesonide/Formoterol Fumarate (Symbicort 160/4.5mcg -) 2 puff IH BID [facility] Last Admin: 08/16/19 21:28 Dose: 2 puff Documented by: Furosemide (Lasix -) 40 mg PO DAILY [facility] Last Admin: 08/16/19 09:07 Dose: 40 mg Documented by: Heparin Sodium (Porcine) (Heparin -) 5,000 unit SQ TID [facility] Last Admin: 08/17/19 05:58 Dose: Not Given Documented by: Insulin Aspart (Novolog Vial Sliding Scale -) 1 vial SQ ACHS [facility]; Protocol Last Admin: 08/17/19 06:04 Dose: Not Given Documented by: Insulin Detemir (Levemir Vial) 22 units SQ 0700,2200 [facility] Last Admin: 08/17/19 06:06 Dose: 22 units Documented by: Melatonin (Melatonin) 5 mg PO HS PRN PRN Reason: INSOMNIA Last Admin: 08/16/19 21:28 Dose: 5 mg Documented by: Methylprednisolone Sodium Succinate (Solu-Medrol -) 40 mg IVPUSH BID [facility] Last Admin: 08/16/19 21:27 Dose: 40 mg Documented by: Oxycodone HCl (Roxicodone -) 5 mg PO Q8H PRN PRN Reason: PAIN LEVEL 6-10 Last Admin: 08/16/19 21:28 Dose: 5 mg Documented by: Sertraline HCl (Zoloft -) 25 mg PO DAILY [facility] Last Admin: 08/16/19 09:07 Dose: 25 mg Documented by: Tetrahydrozoline HCl (Visine -) 1 drop OD BID PRN PRN Reason: ALLERGIES Last Admin: 08/16/19 09:17 Dose: 1 drop Documented by: - Objective Vital Signs: Vital Signs Temperature 98.2 F 08/17/19 05:50 Pulse Rate 74 08/17/19 05:50 Respiratory Rate 20 08/17/19 05:50 Blood Pressure 155/89 08/17/19 05:50 O2 Sat by Pulse Oximetry (%) 95 08/16/19 21:00 Constitutional: Yes: No Distress, Anxious Eyes: Yes: Conjunctiva Clear Neck: Yes: Supple Cardiovascular: Yes: Regular Rate and Rhythm Respiratory: Yes: Rhonchi Gastrointestinal: Yes: Soft Edema: No Neurological: Yes: Alert Labs: CBC, BMP 08/13/19 01:35 08/17/19 06:22 INR, PTT INR 0.97 (0.83-1.09) 08/13/19 01:35 Problem List - Problems (1) Uncontrolled blood glucose Code(s): R73.09 - OTHER ABNORMAL GLUCOSE (2) COPD exacerbation Code(s): J44.1 - CHRONIC OBSTRUCTIVE PULMONARY DISEASE W (ACUTE) EXACERBATION (3) Renal insufficiency Code(s): N28.9 - DISORDER OF KIDNEY AND URETER, UNSPECIFIED (4) Hip osteoarthritis Code(s): M16.9 - OSTEOARTHRITIS OF HIP, UNSPECIFIED Assessment/Plan Better BGM better Abx Steroids- tapering Nebulizer PT oob- chair Xanax for anxiety will follow.
[2019-08-17] MEDS: amLODIPine BESYLATE 5 MG TABLET (FP) PO SCH (10:42)
[2019-08-17] MEDS: ALPRAZolam 0.25 MG TABLET PO PRN ×2 (10:42→21:18)
[2019-08-17] MEDS: FUROSEMIDE 40 MG TABLET (FP) PO SCH (10:42)
[2019-08-17] MEDS: SERTRALINE HCL 25 MG TABLET (FP) PO SCH (10:42)
[2019-08-17] MEDS: methylPREDNISolone NA SUCC 40 MG/1 ML VIAL IVPUSH SCH ×2 (10:42→21:17)
[2019-08-17] MEDS: BUDESONIDE/FORMETEROL FUMARATE 160/4.5 mcg INHALER IH SCH ×2 (10:42→21:17)
--- NOTE | 2019-08-17 16:27 | PN ---
Progress Note (short form) - Note Progress Note: ORTHOPEDIC SURGERY PROGRESS NOTE Department of Orthopedic Surgery SUBJECTIVE No acute events overnight. No complaints currently. Denies chest pain, shortness of breath, or calf pain. No nausea or vomiting. Tolerating oral intake. Pain control difficult overnight, but improving. PHYSICAL EXAMINATION General: Alert, oriented, cooperative and no distress. Lower Extremity: Skin intact, no lesions, rashes or ulcers noted. Muscle mass equal and symmetric to contralateral side. No atrophy noted. No masses or effusions noted. Tenderness over bilateral knees. Pain with PROM and AROM of the right hip and bilateral knees. EHL/TA/GS motor intact; SILT distally; 2+ DP pulses; Cap refill brisk. DVT Exam: No evidence of DVT seen on physical exam; No cords or calf tenderness; No significant calf/ankle edema. Intake & Output 08/15/19 08/16/19 08/17/19 23:59 23:59 23:59 Intake Total 1680 380 100 Output Total 2500 1700 1200 Balance -820 -1320 -1100 Intake: IVPB 300 Oral 1080 380 100 Oral Supplement 300 Output: Urine 2500 1700 1200 Void 2500 1700 1200 Other: Voiding Method External Catheter External Catheter External Catheter # Unmeasured Voids Void 2 Bowel Movement No No No # Bowel Movements 1 Active Medications Generic Name Dose Route Start Last Admin Trade Name Freq PRN Reason Stop Dose Admin Albuterol/Ipratropium 1 amp 08/13/19 08:00 08/17/19 14:01 Duoneb - NEB 1 amp RTID EPI Administration Albuterol/Ipratropium 1 amp 08/13/19 05:59 08/14/19 18:34 Duoneb - NEB 1 amp Q4H PRN Administration SHORTNESS OF BREATH Alprazolam 0.25 mg 08/17/19 10:28 08/17/19 10:42 Xanax - PO 0.25 mg BID PRN Administration ANXIETY Amlodipine Besylate 5 mg 08/16/19 14:30 08/17/19 10:42 Norvasc - PO 5 mg DAILY EPI Administration Budesonide/Formoterol Fumarate 2 puff 08/13/19 10:00 08/17/19 10:42 Symbicort 160/4.5mcg - IH 2 puff BID EPI Administration Furosemide 40 mg 08/15/19 13:30 08/17/19 10:42 Lasix - PO 40 mg DAILY EPI Administration Heparin Sodium (Porcine) 5,000 unit 08/13/19 07:30 08/17/19 13:42 Heparin - SQ Not Given TID [facility] Insulin Aspart 1 vial 08/13/19 07:00 08/17/19 12:35 Novolog Vial Sliding Scale - SQ 2 units ACHS EPI Administration Protocol Insulin Detemir 22 units 08/16/19 13:10 08/17/19 06:06 Levemir Vial SQ 22 units 0700,2200 EPI Administration Melatonin 5 mg 08/13/19 23:12 08/16/19 21:28 Melatonin PO 5 mg HS PRN Administration INSOMNIA Methylprednisolone Sodium Succinate 40 mg 08/16/19 22:00 08/17/19 10:42 Solu-Medrol - IVPUSH 40 mg BID EPI Administration Oxycodone HCl 5 mg 08/15/19 10:25 08/16/19 21:28 Roxicodone - PO 5 mg Q8H PRN Administration PAIN LEVEL 6-10 Sertraline HCl 25 mg 08/14/19 13:45 08/17/19 10:42 Zoloft - PO 25 mg DAILY EPI Administration Tetrahydrozoline HCl 1 drop 08/15/19 10:19 08/16/19 09:17 Visine - OD 1 drop BID PRN Administration ALLERGIES Vital Signs (last) Temp Pulse Resp BP Pulse Ox 97.8 F 94 H 22 H 153/83 94 L 08/17/19 14:00 08/17/19 14:00 08/17/19 14:00 08/17/19 14:00 08/17/19 09:00 Laboratory (coagulation) PT with INR 11.50 SEC (9.7-13.0) 08/13/19 01:35 Laboratory 08/13/19 01:35 08/17/19 06:22 IMAGING AP Pelvis and right hip radiographs were reviewed. They show severe degenerative changes of the right hip and mild degenerative changes of the left hip with no fracture, dislocation or bony lesions. There are no significant interval changes since radiographs obtained in May 2019. Radiographs of bilateral knees were reviewed. They show severe degenerative changes bilaterally with joint space narrowing, subchondral sclerosis, and osteophyte formation. There is a soft tissue calcification in the suprapatellar region of the left knee which may represent a loose body or bony/soft tissue lesion. No fracture or dislocation noted. ASSESSMENT AND PLAN Araceli Cruz is a 63 year old female presenting with severe degenerative joint disease involving the right hip and bilateral knees. She has a left knee soft tissue calcification in the suprapatellar region which may represent a loose body or other bony/soft tissue lesion. - Scheduled for MRI of the left knee tomorrow - Pain control: minimize narcotic use - DVT prophylaxis - Ice/Elevation - Elevate HOB, encourage oral intake - Appreciate medical management - Nutrition optimization - Decubitus precautions heel/sacrum) - PT/OT; WBAT
[2019-08-17] MEDS: MELATONIN 5 MG TABLETS PO PRN (21:18)
[2019-08-18] MEDS: INSULIN SLIDING SCALE (NOVOLOG) 1 VIAL SQ SCH ×4 (06:06→21:53)
[2019-08-18] MEDS: HEPARIN NA (PORCINE) 5,000 UNITS/ML 1ML VIAL SQ SCH ×3 (06:06→21:52)
[2019-08-18] MEDS: INSULIN (LEVEMIR) 100 UNITS/ML UNITS SQ SCH ×2 (06:15→21:53)
[2019-08-18] MEDS: FUROSEMIDE 40 MG TABLET (FP) PO SCH (09:23)
[2019-08-18] MEDS: amLODIPine BESYLATE 5 MG TABLET (FP) PO SCH (09:23)
[2019-08-18] MEDS: methylPREDNISolone NA SUCC 40 MG/1 ML VIAL IVPUSH SCH (09:23)
[2019-08-18] MEDS: BUDESONIDE/FORMETEROL FUMARATE 160/4.5 mcg INHALER IH SCH ×2 (09:24→21:54)
[2019-08-18] MEDS: SERTRALINE HCL 25 MG TABLET (FP) PO SCH (09:24)
[2019-08-18] MEDS ORDERED: INSULIN (NOVOLOG) ASPART 100 UNITS/ML 10ML VIAL ONE (11:09)
[2019-08-18] MEDS: ALPRAZolam 0.25 MG TABLET PO PRN (11:10)
--- NOTE | 2019-08-18 11:42 | PN ---
Progress Note, Physician History of Present Illness: Pt seen and examined at bedside. She is awake and alert. She denies shortness of breath. - Current Medication List Current Medications: Active Medications Alprazolam (Xanax -) 0.25 mg PO BID PRN PRN Reason: ANXIETY Last Admin: 08/18/19 11:10 Dose: 0.25 mg Documented by: Amlodipine Besylate (Norvasc -) 5 mg PO DAILY [facility] Last Admin: 08/18/19 09:23 Dose: 5 mg Documented by: Budesonide/Formoterol Fumarate (Symbicort 160/4.5mcg -) 2 puff IH BID [facility] Last Admin: 08/18/19 09:24 Dose: 2 puff Documented by: Furosemide (Lasix -) 40 mg PO DAILY [facility] Last Admin: 08/18/19 09:23 Dose: 40 mg Documented by: Heparin Sodium (Porcine) (Heparin -) 5,000 unit SQ TID [facility] Last Admin: 08/18/19 06:06 Dose: Not Given Documented by: Insulin Aspart (Novolog Vial Sliding Scale -) 1 vial SQ ACHS [facility]; Protocol Last Admin: 08/18/19 11:07 Dose: 2 units Documented by: Insulin Detemir (Levemir Vial) 22 units SQ 0700,2200 [facility] Last Admin: 08/18/19 06:15 Dose: 22 units Documented by: Melatonin (Melatonin) 5 mg PO HS PRN PRN Reason: INSOMNIA Last Admin: 08/17/19 21:18 Dose: 5 mg Documented by: Methylprednisolone Sodium Succinate (Solu-Medrol -) 40 mg IVPUSH BID [facility] Last Admin: 08/18/19 09:23 Dose: 40 mg Documented by: Sertraline HCl (Zoloft -) 25 mg PO DAILY [facility] Last Admin: 08/18/19 09:24 Dose: 25 mg Documented by: Tetrahydrozoline HCl (Visine -) 1 drop OD BID PRN PRN Reason: ALLERGIES Last Admin: 08/16/19 09:17 Dose: 1 drop Documented by: - Objective Vital Signs: Vital Signs Temperature 98.2 F 08/18/19 08:52 Pulse Rate 86 08/18/19 08:52 Respiratory Rate 20 08/18/19 08:52 Blood Pressure 154/86 08/18/19 08:52 O2 Sat by Pulse Oximetry (%) 94 L 08/18/19 09:00 Constitutional: Yes: Calm Eyes: Yes: Conjunctiva Clear HENT: Yes: Atraumatic Neck: Yes: Supple Cardiovascular: Yes: S1, S2 Respiratory: Yes: CTA Bilaterally Gastrointestinal: Yes: Soft Genitourinary: Yes: WNL Musculoskeletal: Yes: WNL Edema: Yes Edema: LLE: 2+, RLE: 2+ Neurological: Yes: Oriented Psychiatric: Yes: Oriented Labs: CBC, BMP 08/13/19 01:35 08/17/19 06:22 INR, PTT INR 0.97 (0.83-1.09) 08/13/19 01:35 Problem List - Problems (1) KD (acute kidney injury) Code(s): N17.9 - ACUTE KIDNEY FAILURE, UNSPECIFIED (2) COPD exacerbation Code(s): J44.1 - CHRONIC OBSTRUCTIVE PULMONARY DISEASE W (ACUTE) EXACERBATION Assessment/Plan Current Medications Generic Name Dose Route Start Last Admin Trade Name Freq PRN Reason Stop Dose Admin Alprazolam 0.25 mg 08/17/19 10:28 08/18/19 11:10 Xanax - PO 0.25 mg BID PRN Administration ANXIETY Amlodipine Besylate 5 mg 08/16/19 14:30 08/18/19 09:23 Norvasc - PO 5 mg DAILY EPI Administration Budesonide/Formoterol Fumarate 2 puff 08/13/19 10:00 08/18/19 09:24 Symbicort 160/4.5mcg - IH 2 puff BID EPI Administration Furosemide 40 mg 08/15/19 13:30 08/18/19 09:23 Lasix - PO 40 mg DAILY EPI Administration Heparin Sodium (Porcine) 5,000 unit 08/13/19 07:30 08/18/19 06:06 Heparin - SQ Not Given TID EPI Insulin Aspart 1 vial 08/13/19 07:00 08/18/19 11:07 Novolog Vial Sliding Scale - SQ 2 units ACHS EPI Administration Protocol Insulin Detemir 22 units 08/16/19 13:10 08/18/19 06:15 Levemir Vial SQ 22 units 0700,2200 EPI Administration Melatonin 5 mg 08/13/19 23:12 08/17/19 21:18 Melatonin PO 5 mg HS PRN Administration INSOMNIA Methylprednisolone Sodium Succinate 40 mg 08/16/19 22:00 08/18/19 09:23 Solu-Medrol - IVPUSH 40 mg BID EPI Administration Sertraline HCl 25 mg 08/14/19 13:45 08/18/19 09:24 Zoloft - PO 25 mg DAILY EPI Administration Tetrahydrozoline HCl 1 drop 08/15/19 10:19 08/16/19 09:17 Visine - OD 1 drop BID PRN Administration ALLERGIES Laboratory Tests 08/14/19 08/14/19 17:50 17:50 MARIAH M-Isacc Pending HELDER Screen Pending c-ANCA Pending Proteinase 3 (PR3) Pending p-ANCA Pending Atypical p-ANCA Pending Myeloperoxidase Ab Pending Double Strand DNA Ab 1 Glomerular Base Memb Ab Pending Laboratory Tests 08/13/19 08/13/19 08/14/19 08:10 08:10 17:50 Urine Protein Negative Negative Protein/Creatinin Ratio 0.2 Impression 1. KD 2. copd exacerbation 3. lower ext edema 4. chf 5. htn Plan - renal function is improved - follow serologies - monitor lytes on lasix - edema is improving - echo no sig chf, lower ext doppler neg for thrombosis, ua neg for protein
--- NOTE | 2019-08-18 12:46 | PN ---
Progress Note (short form) - Note Progress Note: PULMONARY Has been feeling anxious, not able to sleep, jittery. States breathing is improving. Vital Signs Period Temp Pulse Resp BP Sys/Garcia Pulse Ox Last 24 Hr 97.8 F-98.5 F 80-94 20-22 146-160/83-102 94-97 Gen: anxious Heart: RRR Lung: no wheezes appreciated Abd: soft, nontender Ext: no edema CBC, BMP 08/13/19 01:35 08/17/19 06:22 Active Medications Alprazolam (Xanax -) 0.25 mg PO BID PRN PRN Reason: ANXIETY Last Admin: 08/18/19 11:10 Dose: 0.25 mg Documented by: Amlodipine Besylate (Norvasc -) 5 mg PO DAILY [facility] Last Admin: 08/18/19 09:23 Dose: 5 mg Documented by: Budesonide/Formoterol Fumarate (Symbicort 160/4.5mcg -) 2 puff IH BID [facility] Last Admin: 08/18/19 09:24 Dose: 2 puff Documented by: Furosemide (Lasix -) 40 mg PO DAILY [facility] Last Admin: 08/18/19 09:23 Dose: 40 mg Documented by: Heparin Sodium (Porcine) (Heparin -) 5,000 unit SQ TID [facility] Last Admin: 08/18/19 06:06 Dose: Not Given Documented by: Insulin Aspart (Novolog Vial Sliding Scale -) 1 vial SQ ACHS [facility]; Protocol Last Admin: 08/18/19 11:07 Dose: 2 units Documented by: Insulin Detemir (Levemir Vial) 22 units SQ 0700,2200 [facility] Last Admin: 08/18/19 06:15 Dose: 22 units Documented by: Melatonin (Melatonin) 5 mg PO HS PRN PRN Reason: INSOMNIA Last Admin: 08/17/19 21:18 Dose: 5 mg Documented by: Methylprednisolone Sodium Succinate (Solu-Medrol -) 40 mg IVPUSH BID [facility] Last Admin: 08/18/19 09:23 Dose: 40 mg Documented by: Sertraline HCl (Zoloft -) 25 mg PO DAILY [facility] Last Admin: 08/18/19 09:24 Dose: 25 mg Documented by: Tetrahydrozoline HCl (Visine -) 1 drop OD BID PRN PRN Reason: ALLERGIES Last Admin: 08/16/19 09:17 Dose: 1 drop Documented by: A/P Acute COPD Exacerbation clinically improving Acute Bronchitis Acute on Chronic Renal Failure LV Diastolic Dysfunction HTN DM Hyperlipidemia - decrease medrol to daily - s/p empiric antibiotics - inhaled bronchodilators - O2 to keep SpO2 >90% - lasix as needed - monitor urine output, creatinine - DVT prophylaxis Problem List - Problems (1) COPD exacerbation Code(s): J44.1 - CHRONIC OBSTRUCTIVE PULMONARY DISEASE W (ACUTE) EXACERBATION
[2019-08-18 13:08] LABS: ANTIGLOMERULAR BASEMENT MEN.AB 3 units (0-20)
--- NOTE | 2019-08-18 14:34 | PN ---
Progress Note, Physician History of Present Illness: Pt seen/ examined anxious otherwise better all f/u noted MRI not approved- to be done as out pt Ortho to follow. Tapering steroids - Current Medication List Current Medications: Active Medications Alprazolam (Xanax -) 0.25 mg PO BID PRN PRN Reason: ANXIETY Last Admin: 08/18/19 11:10 Dose: 0.25 mg Documented by: Amlodipine Besylate (Norvasc -) 5 mg PO DAILY [facility] Last Admin: 08/18/19 09:23 Dose: 5 mg Documented by: Budesonide/Formoterol Fumarate (Symbicort 160/4.5mcg -) 2 puff IH BID [facility] Last Admin: 08/18/19 09:24 Dose: 2 puff Documented by: Furosemide (Lasix -) 40 mg PO DAILY [facility] Last Admin: 08/18/19 09:23 Dose: 40 mg Documented by: Heparin Sodium (Porcine) (Heparin -) 5,000 unit SQ TID [facility] Last Admin: 08/18/19 13:08 Dose: Not Given Documented by: Insulin Aspart (Novolog Vial Sliding Scale -) 1 vial SQ ACHS [facility]; Protocol Last Admin: 08/18/19 11:07 Dose: 2 units Documented by: Insulin Detemir (Levemir Vial) 22 units SQ 0700,2200 [facility] Last Admin: 08/18/19 06:15 Dose: 22 units Documented by: Melatonin (Melatonin) 5 mg PO HS PRN PRN Reason: INSOMNIA Last Admin: 08/17/19 21:18 Dose: 5 mg Documented by: Methylprednisolone Sodium Succinate (Solu-Medrol -) 30 mg IVPUSH DAILY [facility] Sertraline HCl (Zoloft -) 25 mg PO DAILY [facility] Last Admin: 08/18/19 09:24 Dose: 25 mg Documented by: Tetrahydrozoline HCl (Visine -) 1 drop OD BID PRN PRN Reason: ALLERGIES Last Admin: 08/16/19 09:17 Dose: 1 drop Documented by: - Objective Vital Signs: Vital Signs Temperature 98.2 F 08/18/19 08:52 Pulse Rate 86 08/18/19 08:52 Respiratory Rate 08/18/19 08:52 Blood Pressure 154/86 08/18/19 08:52 O2 Sat by Pulse Oximetry (%) 94 L 08/18/19 09:00 Constitutional: Yes: No Distress, Anxious Eyes: Yes: Conjunctiva Clear Neck: Yes: Supple Cardiovascular: Yes: Regular Rate and Rhythm Respiratory: Yes: Rhonchi Gastrointestinal: Yes: Soft Edema: LLE: Trace, RLE: Trace Neurological: Yes: Alert Labs: CBC, BMP 08/13/19 01:35 08/17/19 06:22 INR, PTT INR 0.97 (0.83-1.09) 08/13/19 01:35 Problem List - Problems (1) Uncontrolled blood glucose Code(s): R73.09 - OTHER ABNORMAL GLUCOSE (2) COPD exacerbation Code(s): J44.1 - CHRONIC OBSTRUCTIVE PULMONARY DISEASE W (ACUTE) EXACERBATION (3) Renal insufficiency Code(s): N28.9 - DISORDER OF KIDNEY AND URETER, UNSPECIFIED (4) Hip osteoarthritis Code(s): M16.9 - OSTEOARTHRITIS OF HIP, UNSPECIFIED Assessment/Plan Better BGM better Abx Steroids- tapering Nebulizer PT oob- chair Xanax for anxiety transfer to floor Pain better controlled -- hip arthritis will follow. Anticipate d/c tomorrow to half-way on po steroids
[2019-08-18] MEDS ORDERED: amLODIPine BESYLATE 10 MG TABLET (FP) PO SCH (14:55)
[2019-08-18] MEDS ORDERED: ALPRAZolam 0.25 MG TABLET PO PRN (17:39)
[2019-08-18] MEDS ORDERED: TETRAHYDROZOLINE HCL EYE DROPS OD PRN (17:39)
[2019-08-18] MEDS ORDERED: MELATONIN 5 MG TABLETS PO PRN (17:39)
[2019-08-19] MEDS: GABAPENTIN 300 MG CAPSULE PO SCH ×2 (05:28→14:23)
[2019-08-19] MEDS: HEPARIN NA (PORCINE) 5,000 UNITS/ML 1ML VIAL SQ SCH ×2 (05:30→14:15)
[2019-08-19] MEDS ORDERED: PATIENT'S OWN MEDICATION (NON-FORMULARY) (Gabapentin [Neurontin] 600 MG) PO SCH (06:00)
[2019-08-19] MEDS: INSULIN (LEVEMIR) 100 UNITS/ML UNITS SQ SCH (06:13)
[2019-08-19] MEDS: INSULIN SLIDING SCALE (NOVOLOG) 1 VIAL SQ SCH ×2 (06:13→12:19)
[2019-08-19] MEDS ORDERED: methylPREDNISolone NA SUCC 40 MG/1 ML VIAL IVPUSH SCH ×2 (10:00)
[2019-08-19] MEDS ORDERED: amLODIPine BESYLATE 10 MG TABLET (FP) PO SCH (10:00)
[2019-08-19] MEDS ORDERED: SERTRALINE HCL 25 MG TABLET (FP) PO SCH (10:00)
[2019-08-19] MEDS ORDERED: FUROSEMIDE 40 MG TABLET (FP) PO SCH (10:00)
[2019-08-19] MEDS: BUDESONIDE/FORMETEROL FUMARATE 160/4.5 mcg INHALER IH SCH (10:14)
--- NOTE | 2019-08-19 10:54 | PN ---
Progress Note (short form) - Note Progress Note: PULMONARY States breathing is improving. No cough or wheezing. Wants to go home. Vital Signs Period Temp Pulse Resp BP Sys/Garcia Pulse Ox Last 24 Hr 98.2 F-98.8 F 79-88 20-20 148-159/69-88 94-94 Gen: anxious Heart: RRR Lung: no wheezes appreciated Abd: soft, nontender Ext: no edema CBC, BMP 08/13/19 01:35 08/17/19 06:22 Active Medications Alprazolam (Xanax -) 0.25 mg PO BID PRN PRN Reason: ANXIETY Amlodipine Besylate (Norvasc -) 10 mg PO DAILY [facility] Last Admin: 08/19/19 10:13 Dose: 10 mg Documented by: Budesonide/Formoterol Fumarate (Symbicort 160/4.5mcg -) 2 puff IH BID [facility] Last Admin: 08/19/19 10:14 Dose: 2 puff Documented by: Furosemide (Lasix -) 40 mg PO DAILY [facility] Last Admin: 08/19/19 10:13 Dose: 40 mg Documented by: Gabapentin (Neurontin -) 600 mg PO TID [facility] Last Admin: 08/19/19 05:28 Dose: 600 mg Documented by: Heparin Sodium (Porcine) (Heparin -) 5,000 unit SQ TID [facility] Last Admin: 08/19/19 05:30 Dose: Not Given Documented by: Insulin Aspart (Novolog Vial Sliding Scale -) 1 vial SQ ACHS [facility]; Protocol Last Admin: 08/19/19 06:13 Dose: Not Given Documented by: Insulin Detemir (Levemir Vial) 22 units SQ 0700,2200 [facility] Last Admin: 08/19/19 06:13 Dose: Not Given Documented by: Melatonin (Melatonin) 5 mg PO HS PRN PRN Reason: INSOMNIA Methylprednisolone Sodium Succinate (Solu-Medrol -) 30 mg IVPUSH DAILY [facility] Last Admin: 08/19/19 10:12 Dose: 30 mg Documented by: Sertraline HCl (Zoloft -) 25 mg PO DAILY [facility] Last Admin: 08/19/19 10:13 Dose: 25 mg Documented by: Tetrahydrozoline HCl (Visine -) 1 drop OD BID PRN PRN Reason: ALLERGIES A/P Acute COPD Exacerbation clinically improving Acute Bronchitis Acute on Chronic Renal Failure LV Diastolic Dysfunction HTN DM Hyperlipidemia - can change steroids to PO prednisone 20mg daily and taper as outpt - s/p empiric antibiotics - inhaled bronchodilators - O2 to keep SpO2 >90% - lasix as needed - monitor urine output, creatinine - DVT prophylaxis - can d/c home from pulmonary standpoint Problem List - Problems (1) COPD exacerbation Code(s): J44.1 - CHRONIC OBSTRUCTIVE PULMONARY DISEASE W (ACUTE) EXACERBATION
--- NOTE | 2019-08-19 11:47 | DS ---
Physical Examination Vital Signs: Vital Signs Temperature 98.3 F 08/19/19 10:00 Pulse Rate 78 08/19/19 10:00 Respiratory Rate 18 08/19/19 10:00 Blood Pressure 162/85 08/19/19 10:00 O2 Sat by Pulse Oximetry (%) 94 L 08/18/19 21:00 Constitutional: Yes: No Distress Cardiovascular: Yes: Regular Rate and Rhythm Respiratory: Yes: Diminished Gastrointestinal: Yes: Normal Bowel Sounds, Soft, Abdomen, Obese Edema: Yes Labs: CBC, BMP 08/13/19 01:35 08/17/19 06:22 Discharge Summary Problems reviewed: Yes Reason For Visit: COPD exacerbation Current Active Problems KD (acute kidney injury) (Acute) Acute and chronic respiratory failure with hypoxia (Acute) Hip osteoarthritis (Acute) Renal insufficiency (Acute) Uncontrolled blood glucose (Acute) Hospital Course: Admitted for SOB Found to be in acute hypoxic respiratory failure COVID 19 negative Pt was seen by Pulmonary and Cardiology-- started on IV lasix and IV solumedrol and antibiotics clinically improved she completed antibiotics Also seen by Ortho for right knee pain -- recommended MRI-- will do as outpt -- needs Open MRI pt is stable for dc to [facility] Condition: Fair - Instructions Diet, Activity, Other Instructions: Needs Open MRI for right knee pain Referrals: Fritz Chatterjee PHA [Primary Care Provider] - - Home Medications Comprehensive Discharge Medication List: Ambulatory Orders Budesonide/Formeterol Fumarate [SYMBICORT 160/4.5mcg -] 2 inh PO BID 05/29/19 Diltiazem HCl [Diltiazem 24Hr ER (Cd)] 120 mg PO DAILY 05/29/19 Ergocalciferol (Vitamin D2) [Vitamin D2] 50,000 unit PO WEEKLY 05/29/19 Gabapentin [Neurontin] 600 mg PO TID 05/29/19 Ipratropium 0.02% Nebulizer [Atrovent 0.02% Nebulizer -] 1 neb NEB Q4H PRN 05/29/19 Melatonin 5 mg PO HS 05/29/19 Polyethylene Glycol 3350 [Miralax 119 gm Btl -] 17 gm PO DAILY 05/29/19 Acetaminophen [Tylenol .Regular Strength -] 650 mg PO Q6H PRN tablet 06/09/19 Tiotropium St[place]on [Spiriva Respimat] 2 puff IH DAILY inhaler 06/09/19 Atorvastatin Ca [Lipitor] 20 mg PO HS 08/13/19 Furosemide 40 mg PO DAILY 08/13/19 Guaifenesin [Glenda-Tussin] 100 mg PO TID PRN 08/13/19 Lidocaine 5% Patch [Lidoderm -] 1 patch TP DAILY 08/13/19 Tramadol HCl 50 mg PO TID PRN 08/13/19 Alprazolam [Xanax] 0.25 mg PO BID PRN tablet 08/19/19 Amlodipine Besylate [Norvasc -] 10 mg PO DAILY #30 tablet 08/19/19 Furosemide [Lasix -] 40 mg PO DAILY #20 tablet 08/19/19 Insulin (Levemir) [Levemir Vial] 22 units SQ 0700,2200 #14 units 08/19/19 Melatonin 5 mg PO HS PRN #30 tab 08/19/19 Sertraline HCl [Zoloft -] 25 mg PO DAILY #60 tablet 08/19/19 predniSONE [Deltasone -] 20 mg PO DAILY #14 tablet 08/19/19
[2019-08-19 15:07] LABS: ATYPICAL pANCA <1:20 titer (Neg:<1:20); C-ANCA <1:20 titer (Neg:<1:20)
[2019-08-19 15:26] VITALS: BP 143/72; PULSE 87; TEMP 98.2
--- NOTE | 2019-08-19 16:28 | PN ---
Progress Note, Physician History of Present Illness: Pt seen and examined at bedside. She is awake and alert. She denies shortness of breath. - Current Medication List Current Medications: Active Medications Gabapentin (Neurontin -) 600 mg PO TID [facility] Last Admin: 08/19/19 14:23 Dose: 600 mg Documented by: Heparin Sodium (Porcine) (Heparin -) 5,000 unit SQ TID [facility] Last Admin: 08/19/19 14:15 Dose: Not Given Documented by: Insulin Aspart (Novolog Vial Sliding Scale -) 1 vial SQ ACHS [facility]; Protocol Last Admin: 08/19/19 12:19 Dose: 6 units Documented by: Insulin Detemir (Levemir Vial) 22 units SQ 0700,2200 [facility] Last Admin: 08/19/19 06:13 Dose: Not Given Documented by: Melatonin (Melatonin) 5 mg PO HS PRN PRN Reason: INSOMNIA Prednisone (Deltasone -) 20 mg PO DAILY [facility] Sertraline HCl (Zoloft -) 25 mg PO DAILY [facility] Last Admin: 08/19/19 10:13 Dose: 25 mg Documented by: Tetrahydrozoline HCl (Visine -) 1 drop OD BID PRN PRN Reason: ALLERGIES - Objective Vital Signs: Vital Signs Temperature 98.2 F 08/19/19 14:00 Pulse Rate 87 08/19/19 14:00 Respiratory Rate 18 08/19/19 14:00 Blood Pressure 143/72 08/19/19 14:00 O2 Sat by Pulse Oximetry (%) 94 L 08/18/19 21:00 Constitutional: Yes: Calm Eyes: Yes: Conjunctiva Clear HENT: Yes: Atraumatic Neck: Yes: Supple Cardiovascular: Yes: S1, S2 Respiratory: Yes: CTA Bilaterally Gastrointestinal: Yes: Normal Bowel Sounds, Soft Genitourinary: Yes: WNL Musculoskeletal: Yes: WNL Edema: Yes Edema: LLE: 1+, RLE: 1+ Neurological: Yes: Oriented Labs: CBC, BMP 08/13/19 01:35 08/17/19 06:22 INR, PTT INR 0.97 (0.83-1.09) 08/13/19 01:35 Problem List - Problems (1) KD (acute kidney injury) Code(s): N17.9 - ACUTE KIDNEY FAILURE, UNSPECIFIED (2) COPD exacerbation Code(s): J44.1 - CHRONIC OBSTRUCTIVE PULMONARY DISEASE W (ACUTE) EXACERBATION Assessment/Plan Current Medications Generic Name Dose Route Start Last Admin Trade Name Brady PRN Reason Stop Dose Admin Alprazolam 0.25 mg 08/17/19 10:28 08/18/19 11:10 Xanax - PO 0.25 mg BID PRN Administration ANXIETY Amlodipine Besylate 5 mg 08/16/19 14:30 08/18/19 09:23 Norvasc - PO 5 mg DAILY EPI Administration Budesonide/Formoterol Fumarate 2 puff 08/13/19 10:00 08/18/19 09:24 Symbicort 160/4.5mcg - IH 2 puff BID EPI Administration Furosemide 40 mg 08/15/19 13:30 08/18/19 09:23 Lasix - PO 40 mg DAILY EPI Administration Heparin Sodium (Porcine) 5,000 unit 08/13/19 07:30 08/18/19 06:06 Heparin - SQ Not Given TID EPI Insulin Aspart 1 vial 08/13/19 07:00 08/18/19 11:07 Novolog Vial Sliding Scale - SQ 2 units ACHS EPI Administration Protocol Insulin Detemir 22 units 08/16/19 13:10 08/18/19 06:15 Levemir Vial SQ 22 units 0700,2200 EPI Administration Melatonin 5 mg 08/13/19 23:12 08/17/19 21:18 Melatonin PO 5 mg HS PRN Administration INSOMNIA Methylprednisolone Sodium Succinate 40 mg 08/16/19 22:00 08/18/19 09:23 Solu-Medrol - IVPUSH 40 mg BID EPI Administration Sertraline HCl 25 mg 08/14/19 13:45 08/18/19 09:24 Zoloft - PO 25 mg DAILY EPI Administration Tetrahydrozoline HCl 1 drop 08/15/19 10:19 08/16/19 09:17 Visine - OD 1 drop BID PRN Administration ALLERGIES 08/13/19 08/13/19 08/14/19 08:10 08:10 17:50 Urine Protein Negative Negative Protein/Creatinin Ratio 0.2 Laboratory Tests 08/14/19 08/14/19 17:50 17:50 MARIAH M-Isacc Pending c-ANCA <1:20 Proteinase 3 (PR3) <3.5 p-ANCA <1:20 Myeloperoxidase Ab <9.0 Double Strand DNA Ab 1 Glomerular Base Memb Ab 3 Impression 1. KD 2. copd exacerbation 3. lower ext edema 4. chf 5. htn Plan - serologies negative so far - results noted - renal function improved - monitor lytes on lasix - edema is improving - echo no sig chf, lower ext doppler neg for thrombosis, ua neg for protein, edema may be from stasis as she is not ambulatory, will need follow up
[2019-08-20] MEDS ORDERED: predniSONE 20 MG TABLET (UD) PO SCH (10:00)
== END 2019-08-19 16:25 | DRG 133 ==
LOC: JER 23:09 → JERBED 08-13 00:10 → J4W 08-13 15:24 → J5S 08-18 17:37
PROVIDERS: ADMIT Internal Medicine; ATTEND Internal Medicine
PROC: 5A09357 Assistance with Respiratory Ventilation, Less than 24 Consecutive Hours, Continuous Positive Airway Pressure (ICD-10-PCS; principal; 2019-08-13)
DX: J96.21 Acute and chronic respiratory failure with hypoxia (principal); J44.1 Chronic obstructive pulmonary disease with (acute) exacerbation; N17.9 Acute kidney failure, unspecified; J20.9 Acute bronchitis, unspecified; I13.0 Hypertensive heart and chronic kidney disease with heart failure and stage 1 through stage 4 chronic kidney disease, or unspecified chronic kidney disease; E11.22 Type 2 diabetes mellitus with diabetic chronic kidney disease; I50.9 Heart failure, unspecified; N18.9 Chronic kidney disease, unspecified; D64.9 Anemia, unspecified; E66.9 Obesity, unspecified; Z68.31 Body mass index [BMI] 31.0-31.9, adult; E78.5 Hyperlipidemia, unspecified; M16.11 Unilateral primary osteoarthritis, right hip; M17.0 Bilateral primary osteoarthritis of knee; F32.9 Major depressive disorder, single episode, unspecified; Z87.891 Personal history of nicotine dependence
CPT/HCPCS: 36415; 36600; 71045-TC-FY; 73523-TC-FY; 73562-TC-LT-FY; 73562-TC-RT-FY; 76775-TC; 80048; 80053; 81003; 82550; 82553; 82565; 82728; 82803; 82947; 82962; 83516; 83520; 83540; 83550; 83605; 83880; 84155; 84156; 84165; 84484; 85025; 85044; 85379; 85610; 85730; 86038; 86225; 86256; 86704; 86706; 86707; 86708; 86709; 87040; 87086; 87340; 87522; 93005; 93010; 93306-TC; 93970-TC; 94640; 97116-GP; 97161-GP; 99291; J0131; J1644; U0003

== ENCOUNTER 2019-10-31 21:27 | Emergency (ER) | payer OTHER ==
[2019-10-31 21:46] VITALS: BP 130/60; TEMP 98.4; BMI 32.5
[2019-10-31] MEDS ORDERED: LIDOCAINE PATCH REMOVAL MC SCH (22:00)
--- NOTE | 2019-10-31 22:12 | PDOC ---
History of Present Illness - General Chief Complaint: Pain, Acute Stated Complaint: RIGHT HIP PAIN Time Seen by Provider: 10/31/19 22:11 History Source: Patient Exam Limitations: No Limitations - History of Present Illness Initial Comments: 10/31/19 22:11 Araceli Cruz is a 63F with PMH asthma, COPD, CHF, HTN, HLD presenting from [facility] with R hip pain. Patient at baseline non-ambulatory, gets around by wheelchair, getting Rehab at this time. Chronic hip pain 2/2 OA. Last few days worsening R hip pain, so much so that she is unable to move it without pain, denies numbness or tingling to leg down to foot, described has stabbing pain down leg. No recent trauma or falls. Denies F/C, N/V, chest pain, CHEN, dizziness, abd pain, urinary sx. Has some SOB and wheezing due to asthma, taking inhalers without issue, has been placed on O2 last few days. Poor PO intake from poor appetite. Has been getting Tramadol and today 10mg oxycodone for pain, has not improved her pain much. No lower back pain. Past History - Medical History Allergies/Adverse Reactions: Allergies Allergy/AdvReac Type Severity Reaction Status Date / Time No Known Allergies Allergy Verified 10/31/19 21:44 Home Medications: Ambulatory Orders Budesonide/Formeterol Fumarate [SYMBICORT 160/4.5mcg -] 2 inh PO BID 05/29/19 Diltiazem HCl [Diltiazem 24Hr ER (Cd)] 120 mg PO DAILY 05/29/19 Ergocalciferol (Vitamin D2) [Vitamin D2] 50,000 unit PO WEEKLY 05/29/19 Gabapentin [Neurontin] 600 mg PO TID 05/29/19 Ipratropium 0.02% Nebulizer [Atrovent 0.02% Nebulizer -] 1 neb NEB Q4H PRN 05/29/19 Melatonin 5 mg PO HS 05/29/19 Acetaminophen [Tylenol .Regular Strength -] 650 mg PO Q6H PRN tablet 06/09/19 Tiotropium Gordon [Spiriva Respimat] 2 puff IH DAILY inhaler 06/09/19 Atorvastatin Ca [Lipitor] 20 mg PO HS 08/13/19 Furosemide 40 mg PO DAILY 08/13/19 Guaifenesin [Glenda-Tussin] 100 mg PO TID PRN 08/13/19 Amlodipine Besylate [Norvasc -] 10 mg PO DAILY #30 tablet 08/19/19 Furosemide [Lasix -] 40 mg PO DAILY #20 tablet 08/19/19 Insulin (Levemir) [Levemir Vial] 22 units SQ 0700,2200 #14 units 08/19/19 Melatonin 5 mg PO HS PRN #30 tab 08/19/19 Sertraline HCl [Zoloft -] 25 mg PO DAILY #60 tablet 08/19/19 Insulin Glargine,Hum.rec.anlog [Basaglar Kwikpen U-100] 222 unit SQ HS 10/31/19 Oxycodone HCl 10 mg PO Q4H PRN 10/31/19 Tramadol HCl [Ultram] 50 mg PO TID PRN 10/31/19 Asthma: Yes COPD: Yes Diabetes: Yes GI Disorders: Yes (cosntipation) Disorders: Yes (renal osteodystrophy) HTN: Yes Hypercholesterolemia: Yes Psychiatric Problems: Yes (major depressive behavior/imsomnia/nicotine dependence) - Reproductive History Is Patient Now?: No - Psycho-Social/Smoking History Smoking History: Never smoked Have you smoked in the past 12 months: No Information on smoking cessation initiated: No - Substance Abuse Hx (Audit-C & DAST Scrn) How often the patient has a drink containing alcohol: Never Score: In Men: 4 or > Positive; In Women: 3 or > Positive: 0 Screen Result (Pos requires Nsg. Audit-10AR): Negative In the last yr the pt used illegal drug/Rx for NonMed reason: No Score: Yes response is considered Positive: 0 Screen Result (Positive result requires Nsg. DAST-10): Negative Review of Systems - Review of Systems Able to Perform ROS?: Yes Constitutional: No: Symptoms Reported HEENTM: No: Symptoms Reported Respiratory: No: Symptoms reported Cardiac (ROS): No: Symptoms Reported ABD/GI: No: Symptoms Reported : No: Symptoms Reported Musculoskeletal: Yes: Joint Pain. No: Back Pain Integumentary: No: Symptoms Reported Neurological: No: Symptoms reported Psychiatric: No: Emotional Problems Hematologic/Lymphatic: No: Symptoms Reported All Other Systems: Reviewed and Negative *Physical Exam - Vital Signs Last Vital Signs Temp Pulse Resp BP Pulse Ox 98.4 F 88 20 130/60 94 L 10/31/19 21:44 10/31/19 21:44 10/31/19 21:44 10/31/19 21:44 10/31/19 21:44 - Physical Exam General Appearance: Yes: Nourished, Appropriately Dressed, Mild Distress, Obese, Other (lying supine in bed, in NAD, appears uncomfortable) HEENT: positive: EOMI, JAIME, Normal Voice, Symmetrical. negative: Pharynx Normal, Scleral Icterus (R), Scleral Icterus (L), Pharyngeal Erythema, Tonsillar Exudate, Tonsillar Erythema Neck: positive: Trachea midline, Normal Thyroid, Supple. negative: Tender, Rigid, Decreased range of motion, Lymphadenopathy (R), Lymphadenopathy (L), Tender lateral, Tender midline Respiratory/Chest: positive: Lungs Clear, Normal Breath Sounds, Other (satting 94% RA, no wheezing or decreased breath sounds). negative: Chest Tender, Respiratory Distress, Accessory Muscle Use, Crackles, Rales, Rhonchi, Stridor, Wheezing Cardiovascular: positive: Regular Rhythm, Regular Rate. negative: Murmur Gastrointestinal/Abdominal: positive: Normal Bowel Sounds, Flat, Soft, Protuberent. negative: Tender, Organomegaly, Pulsatile Mass, Distended, Guardi ng, Rebound Musculoskeletal: positive: Normal Inspection. negative: CVA Tenderness, Decreased Range of Motion, Vertebral Tenderness Extremity: positive: Normal Capillary Refill, Normal Inspection, Pelvis Stable. negative: Normal Range of Motion (unwilling to flex at hip >10 degrees due to pain), Tender, Pedal Edema, Swelling, Calf Tenderness, Erythema Integumentary: positive: Normal Color, Dry, Warm. negative: Erythema, Diaphoresis Neurologic: positive: Fully Oriented, Alert, Normal Mood/Affect, Normal Response. negative: Motor Strength 5/5 (LLE motor 5/5 all groups with intact sensation to LT. LLE motor 5/5 at ankle and foot but 1/5 hip and knee, sensation intact to LT all leg) ED Treatment Course - LABORATORY CBC & Chemistry Diagram: 10/31/19 23:00 10/31/19 23:00 Medical Decision Making - Medical Decision Making 10/31/19 22:12 Patient presents with R hip pain with known OA worsening acutely, not responding to oxycodone or Tramadol, here for evaluation. VSS. R hip limited ROM 2/2 pain. Pre-op labs sent with R hip XR that appears unchanged from prior, no acute fracture from ER read, with severe OA degenerative changes. Giving lidocaine patch for pain control. Has been evaluated by ortho in prior admission, not a candidate for hip replacement while admitted but eligible once outpatient. 11/01/19 00:20 Signed out to night team, trial acetaminophen and oxycodones again for pain control. If pain controlled can send home with ortho f/u. Discharge - Discharge Information Problems reviewed: Yes Clinical Impression/Diagnosis: Right hip pain Condition: Stable - Follow up/Referral Referrals: Logan Klein DO [Staff Physician] - - Patient Discharge Instructions Patient Printed Discharge Instructions: DI for Osteoarthritis Additional Instructions: Today you were evaluated for hip pain. Your blood labs are all normal. Your hip x-ray does not show a broken bone, but you have severe osteoarthritis that you have been seen for before, and it was recommended that you follow-up with the orthopedics clinic for planning for a hip replacement, which is the definitive treatment for your pain. We are given you some Percocets for pain control, as you are not a candidate to use NSAIDs such as ibuprofen. Follow-up with your orthopedic surgeon once able. If you experience worsening pain, back pain, or any other new or concerning symptoms, please return to the emergency room. - Post Discharge Activity
--- NOTE | 2019-10-31 22:14 | PDOC ---
Attending Attestation - Resident Resident Name: Elias Leon - ED Attending Attestation I have performed the following: I have examined & evaluated the patient, The case was reviewed & discussed with the resident, I agree w/resident's findings & plan - HPI HPI: 11/01/19 01:24 Araceli Cruz is a 63F with PMH asthma, COPD, CHF, HTN, HLD presenting from [facility] with R hip pain. Hip pain is chronic - Physicial Exam PE: 11/01/19 01:24 Agree with resident exam - Medical Decision Making 11/01/19 01:24 pain meds given here; XRAY shows no acute findings. 11/01/19 01:46 Pt is to follow with ortho as an outpatient. 11/01/19 01:47 back to her NH with transportation Discharge - Discharge Information Problems reviewed: Yes Clinical Impression/Diagnosis: Right hip pain Condition: Stable - Follow up/Referral Referrals: Logan Klein DO [Staff Physician] - - Patient Discharge Instructions Patient Printed Discharge Instructions: DI for Osteoarthritis Additional Instructions: Today you were evaluated for hip pain. Your blood labs are all normal. Your hip x-ray does not show a broken bone, but you have severe osteoarthritis that you have been seen for before, and it was recommended that you follow-up with the orthopedics clinic for planning for a hip replacement, which is the definitive treatment for your pain. We are given you some Percocets for pain control, as you are not a candidate to use NSAIDs such as ibuprofen. Follow-up with your orthopedic surgeon once able. If you experience worsening pain, back pain, or any other new or concerning symptoms, please return to the emergency room. - Post Discharge Activity
[2019-10-31 23:12] LABS: BASO % 1.5 % (0-2.0); EOS % 1.8 % (0-4.5); HEMATOCRIT 32.5 % (32.4-45.2); HEMOGLOBIN 10.6 GM/dL (10.7-15.3); LYMPH % 23.1 % (8-40); MCH 28.9 pg (25.7-33.7); MCHC 32.6 g/dl (32.0-36.0); MEAN CELL VOLUME 88.6 fl (80-96); MEAN PLT VOLUME 8.2 fl (7.5-11.1); MONO % 8.3 % (3.8-10.2); NEUT % 65.3 % (42.8-82.8); PLATELET COUNT 275 K/MM3 (134-434); RBC 3.67 M/mm3 (3.60-5.2); WHITE BLOOD COUNT 8.8 K/mm3 (4.0-10.0)
[2019-10-31] MEDS ORDERED: LIDOCAINE 5% TOPICAL PATCH TP ONE (23:21)
[2019-10-31 23:25] LABS: INR 1.01 (0.83-1.09); PROTHROMBIN TIME (PATIENT) 11.9 SEC (9.7-13.0)
[2019-10-31 23:28] LABS: ACTIVATED PTT 33.9 SECONDS (25.2-36.5)
[2019-10-31] MEDS ORDERED: LIDOCAINE 5% TOPICAL PATCH ONE (23:30)
[2019-10-31 23:34] LABS: BILIRUBIN,TOTAL 0.5 mg/dL (0.2-1); BLOOD UREA NITROGEN 15.2 mg/dL (7-18); CALCIUM 9.6 mg/dL (8.5-10.1); CREATININE 1.1 mg/dL (0.55-1.3); POTASSIUM 4.6 mmol/L (3.5-5.1); TOT PROT 7.4 g/dl (6.4-8.2)
[2019-11-01] MEDS ORDERED: KETOROLAC TROMETHAMINE 30 MG/1 ML VIAL IVPUSH ONE (00:07)
[2019-11-01] MEDS ORDERED: KETOROLAC TROMETHAMINE 30 MG/1 ML VIAL ONE (00:17)
[2019-11-01 01:18] VITALS: PULSE 98
== END 2019-11-01 02:53 | disposition home or self-care (01) ==
LOC: JER 21:27
PROC: 3E033NZ Introduction of Analgesics, Hypnotics, Sedatives into Peripheral Vein, Percutaneous Approach (ICD-10-PCS; principal; 2019-10-31)
DX: M25.551 Pain in right hip (principal)
CPT/HCPCS: 36415; 73523-TC-FY; 80053; 85025; 85610; 85730; 86850; 86900; 86901; 99285-25

== ENCOUNTER 2020-01-15 07:41 | Emergency (ER) | payer OTHER ==
[2020-01-15 08:07] VITALS: BP 133/61; PULSE 77; TEMP 97.5; BMI 32.5
[2020-01-15] MEDS ORDERED: ACETAMINOPHEN 500 MG TABLET (FP) PO ONE (08:50)
[2020-01-15] MEDS ORDERED: oxyCODONE HCL 5 MG TABLET PO ONE (08:57)
[2020-01-15] MEDS ORDERED: NALOXONE HCL 0.4 MG/ML VIAL IVPUSH ONE (09:07)
[2020-01-15] MEDS ORDERED: oxyCODONE HCL 5 MG TABLET ONE (09:12)
[2020-01-15] MEDS ORDERED: ACETAMINOPHEN 500 MG TABLET (FP) ONE (09:13)
[2020-01-15 09:58] LABS: HEMATOCRIT 28.6 % (32.4-45.2); HEMOGLOBIN 9.1 GM/dL (10.7-15.3); MCH 28.3 pg (25.7-33.7); MCHC 31.8 g/dl (32.0-36.0); MEAN CELL VOLUME 88.8 fl (80-96); MEAN PLT VOLUME 8.3 fl (7.5-11.1); PLATELET COUNT 359 K/MM3 (134-434); RBC 3.22 M/mm3 (3.60-5.2); RDW 15.3 % (11.6-15.6); WHITE BLOOD COUNT 8.3 K/mm3 (4.0-10.0)
[2020-01-15 10:22] LABS: POTASSIUM 4.2 mmol/L (3.5-5.1)
[2020-01-15 10:23] LABS: ALBUMIN 2.5 g/dl (3.4-5.0); BLOOD UREA NITROGEN 6.6 mg/dL (7-18); CALCIUM 9.6 mg/dL (8.5-10.1)
[2020-01-15 10:28] LABS: CREATININE 0.9 mg/dL (0.55-1.3)
[2020-01-15 10:29] LABS: BILIRUBIN,TOTAL 0.5 mg/dL (0.2-1); TOT PROT 6.5 g/dl (6.4-8.2)
== END 2020-01-15 13:46 ==
LOC: JER 07:41
PROC: 3E033NZ Introduction of Analgesics, Hypnotics, Sedatives into Peripheral Vein, Percutaneous Approach (ICD-10-PCS; principal; 2020-01-15)
DX: M25.551 Pain in right hip (principal); M16.11 Unilateral primary osteoarthritis, right hip
CPT/HCPCS: 36415; 73523-TC-FY; 80053; 85027; 99284-25

== ENCOUNTER 2021-07-12 16:47 | Inpatient (IN) | payer OTHER ==
[2021-07-12] MEDS ORDERED: ACETAMINOPHEN 1000 MG/100 ML BAG IVPB ONE (18:51)
[2021-07-12] MEDS ORDERED: ONDANSETRON 4 MG/2 ML VIAL IVPUSH ONE (18:51)
[2021-07-12 21:14] LABS: BASO % 0.7 % (0-2.0); EOS % 2.1 % (0-4.5); HEMATOCRIT 35.3 % (32.4-45.2); HEMOGLOBIN 11.2 GM/dL (10.7-15.3); LYMPH % 29.5 % (8-40); MCH 27.9 pg (25.7-33.7); MCHC 31.6 g/dl (32.0-36.0); MEAN CELL VOLUME 88.2 fl (80-96); MEAN PLT VOLUME 8.4 fl (7.5-11.1); MONO % 8.4 % (3.8-10.2); NEUT % 59.3 % (42.8-82.8); PLATELET COUNT 254 10^3/uL (134-434); RDW 14.6 % (11.6-15.6)
[2021-07-12 21:19] LABS: INR 1.4 (0.83-1.09); PROTHROMBIN TIME (PATIENT) 16.2 SEC (9.7-13.0)
[2021-07-12 21:21] LABS: ACTIVATED PTT 36.2 SECONDS (25.2-36.5)
[2021-07-12 21:31] LABS: ALBUMIN 3.3 g/dl (3.4-5.0); BLOOD UREA NITROGEN 23.7 mg/dL (7-18); CALCIUM 9.4 mg/dL (8.5-10.1)
[2021-07-12 21:34] LABS: CREATININE 1.2 mg/dL (0.55-1.3)
[2021-07-12 21:36] LABS: BILIRUBIN,TOTAL 0.6 mg/dL (0.2-1); TOT PROT 7.9 g/dl (6.4-8.2)
[2021-07-12] MEDS ORDERED: LIDOCAINE HCL 2% JELLY 10 ML CARTRIDGE PR ONE (22:12)
[2021-07-12] MEDS ORDERED: LIDOCAINE HCL 2% JELLY 10 ML CARTRIDGE ONE (22:14)
[2021-07-12] MEDS ORDERED: DEXTROSE 5%-0.45% SALINE 1,000 ML IV SCH (23:45)
[2021-07-13] MEDS ORDERED: LACTATED RINGERS SOLUTION 1,000 ML/1,000 ML INFUS.BAG IV STA (01:08)
[2021-07-13] MEDS ORDERED: PIPERACILLIN/TAZOB 4.5 GM 4.5 GM in DEXTROSE 5%-WATER 100 ML IVPB ONE (01:25)
[2021-07-13] MEDS ORDERED: VANCOMYCIN 1 GM in D5W (PRE-DOCKED) 1,000 MG/250 ML IVPB ONE (01:25)
[2021-07-13] MEDS ORDERED: ONDANSETRON 4 MG/2 ML VIAL ONE (01:34)
[2021-07-13] MEDS ORDERED: VANCOMYCIN 1 GRAM (PRE-DOCKED) 1,000 MG/250 ML BAG IVPB ONE (01:34)
[2021-07-13] MEDS ORDERED: PIPERACILLIN/TAZOB 4.5 GM 4.5 GM/100 ML BAG IVPB ONE (01:34)
[2021-07-13] MEDS ORDERED: ACETAMINOPHEN INJECTION 100 ML IVPB ONE (01:34)
[2021-07-13 05:14] VITALS: BMI 32.1
[2021-07-13] MEDS: DEXTROSE 5%-0.45% SALINE 1,000 ML IV SCH ×2 (06:20→20:28)
[2021-07-13 09:55] LABS: BASO % 0.3 % (0-2.0); EOS % 2.6 % (0-4.5); HEMATOCRIT 32.9 % (32.4-45.2); HEMOGLOBIN 10.4 GM/dL (10.7-15.3); LYMPH % 30.9 % (8-40); MCH 27.8 pg (25.7-33.7); MCHC 31.5 g/dl (32.0-36.0); MEAN CELL VOLUME 88.4 fl (80-96); MEAN PLT VOLUME 8.1 fl (7.5-11.1); MONO % 8.9 % (3.8-10.2); NEUT % 57.3 % (42.8-82.8); PLATELET COUNT 241 10^3/uL (134-434); RBC 3.72 M/mm3 (3.60-5.2); RDW 14.5 % (11.6-15.6); WHITE BLOOD COUNT 6.9 K/mm3 (4.0-10.0)
[2021-07-13] MEDS ORDERED: ACETAMINOPHEN 1000 MG/100 ML BAG IVPB PRN (10:20)
[2021-07-13 10:23] LABS: CALCIUM 9.2 mg/dL (8.5-10.1)
[2021-07-13 10:26] LABS: CREATININE 1.2 mg/dL (0.55-1.3)
[2021-07-13 10:28] LABS: TOT PROT 7.1 g/dl (6.4-8.2)
[2021-07-13 10:29] LABS: BILIRUBIN,TOTAL 0.7 mg/dL (0.2-1)
[2021-07-13] MEDS ORDERED: ALBUTEROL SO4 0.083% IH SOL 2.5 MG/3 ML VIAL.NEB. NEB PRN (11:30)
[2021-07-13] MEDS ORDERED: ALBUTEROL SO4 HFA INHALER IH PRN ×2 (11:31→18:00)
[2021-07-13] MEDS ORDERED: ALBUTEROL SO4 2.5/IPRATROPIUM 0.5 INH SOL 3 ML VIAL.NEB. NEB PRN (11:32)
[2021-07-13] MEDS: ALBUTEROL SO4 2.5/IPRATROPIUM 0.5 INH SOL 3 ML VIAL.NEB. NEB SCH (20:00)
[2021-07-14] MEDS: DEXTROSE 5%-0.45% SALINE 1,000 ML IV SCH (04:19)
[2021-07-14] MEDS: ALBUTEROL SO4 2.5/IPRATROPIUM 0.5 INH SOL 3 ML VIAL.NEB. NEB SCH ×4 (08:02→20:38)
[2021-07-14 09:47] LABS: BASO % 0.5 % (0-2.0); EOS % 1.7 % (0-4.5); HEMATOCRIT 32.7 % (32.4-45.2); HEMOGLOBIN 10.4 GM/dL (10.7-15.3); MCHC 31.9 g/dl (32.0-36.0); MEAN PLT VOLUME 8.4 fl (7.5-11.1); MONO % 6.2 % (3.8-10.2); NEUT % 73.6 % (42.8-82.8); PLATELET COUNT 248 10^3/uL (134-434); RBC 3.72 M/mm3 (3.60-5.2); RDW 14.8 % (11.6-15.6); WHITE BLOOD COUNT 7.9 K/mm3 (4.0-10.0)
[2021-07-14 09:57] LABS: CALCIUM 9.1 mg/dL (8.5-10.1)
[2021-07-14 09:58] LABS: BLOOD UREA NITROGEN 16.7 mg/dL (7-18)
[2021-07-14 10:01] LABS: CREATININE 1.1 mg/dL (0.55-1.3)
[2021-07-14] MEDS ORDERED: ACETAMINOPHEN 1000 MG/100 ML BAG IVPB ONE (19:55)
[2021-07-15] MEDS ORDERED: ROCURONIUM BROMIDE 50 MG/5 ML SYRINGE ONE (07:51)
[2021-07-15] MEDS ORDERED: SUCCINYLCHOLINE CHLORIDE 200 MG/10 ML SYRINGE ONE (07:51)
[2021-07-15] MEDS ORDERED: PROPOFOL 20 ML ONE (07:51)
[2021-07-15] MEDS: ALBUTEROL SO4 2.5/IPRATROPIUM 0.5 INH SOL 3 ML VIAL.NEB. NEB SCH ×4 (08:00→20:17)
[2021-07-15] MEDS ORDERED: cefOXitin SODIUM 2 GM VIAL (RESTRICTED TO ID) IVPB ONE (08:04)
[2021-07-15] MEDS ORDERED: cefOXitin SODIUM 1 GM VIAL (RESTRICTED TO ID) IVPB ONE (08:35)
[2021-07-15] MEDS ORDERED: BUPIVACAINE HCL/PF 0.25% (2.5MG/ML) 10 ML VIAL ONE (08:40)
[2021-07-15] MEDS ORDERED: DEXAMETHASONE SOD PHOSPHATE 4 MG/1 ML VIAL ONE (08:50)
[2021-07-15] MEDS ORDERED: HYDROmorphone HCl 2 MG/ML VIAL ONE (08:50)
[2021-07-15] MEDS ORDERED: BUPIVACAINE HCL/PF 0.25% (2.5MG/ML) 10 ML VIAL IJ ONE (08:51)
[2021-07-15] MEDS ORDERED: NEOSTIGMINE METHYLSULFATE 0.5 MG/ML - 10 ML MDV ONE (09:23)
[2021-07-15] MEDS ORDERED: ALBUTEROL SO4 0.083% IH SOL 2.5 MG/3 ML VIAL.NEB. NEB ONE ×2 (09:40→09:42)
[2021-07-15] MEDS ORDERED: ONDANSETRON 4 MG/2 ML VIAL ONE (09:41)
[2021-07-15] MEDS ORDERED: ONDANSETRON 4 MG/2 ML VIAL IVPUSH PRN (09:56)
[2021-07-15] MEDS: LACTATED RINGERS SOLUTION 1,000 ML IV SCH (10:00)
[2021-07-15] MEDS: DEXTROSE 5%-0.45% SALINE 1,000 ML IV SCH (10:00)
[2021-07-15] MEDS ORDERED: ACETAMINOPHEN INJECTION 100 ML IVPB ONE (10:23)
[2021-07-15] MEDS ORDERED: ACETAMINOPHEN 1000 MG/100 ML BAG IVPB ONE (10:28)
[2021-07-15] MEDS: ACETAMINOPHEN 1000 MG/100 ML BAG IVPB SCH ×3 (11:23→23:31)
[2021-07-15 13:24] LABS: BASO % 0.2 % (0-2.0); EOS % 0.3 % (0-4.5); HEMATOCRIT 34.3 % (32.4-45.2); HEMOGLOBIN 10.7 GM/dL (10.7-15.3); LYMPH % 5.6 % (8-40); MCH 27.9 pg (25.7-33.7); MCHC 31.3 g/dl (32.0-36.0); MEAN CELL VOLUME 89.3 fl (80-96); MEAN PLT VOLUME 8.3 fl (7.5-11.1); MONO % 1.9 % (3.8-10.2); PLATELET COUNT 263 10^3/uL (134-434); RBC 3.84 M/mm3 (3.60-5.2); RDW 14.7 % (11.6-15.6); WHITE BLOOD COUNT 11.3 K/mm3 (4.0-10.0)
[2021-07-15 13:51] LABS: BLOOD UREA NITROGEN 11.1 mg/dL (7-18); CALCIUM 9.3 mg/dL (8.5-10.1)
[2021-07-15 14:29] LABS: ANISOCYTOSIS 0; HELMET CELLS 0; HOWELL-JOLLY BODIES 0; MACROCYTOSIS 0; OVALOCYTE 0; ROULEAU 0; SICKELED CELLS 0; TARGET CELLS 0; TEAR DROP CELLS 0; TOXIC GRANULATION 0
[2021-07-16] MEDS: LACTATED RINGERS SOLUTION 1,000 ML IV SCH (02:39)
[2021-07-16] MEDS: ACETAMINOPHEN 1000 MG/100 ML BAG IVPB SCH (04:26)
[2021-07-16] MEDS: ALBUTEROL SO4 2.5/IPRATROPIUM 0.5 INH SOL 3 ML VIAL.NEB. NEB SCH ×4 (07:55→20:05)
[2021-07-16] MEDS: POLYETHYLENE GLYCOL (HEALTHYLAX) 3350 17 GM PACKET PO SCH ×2 (14:23→21:52)
[2021-07-16] MEDS: INSULIN (NOVOLOG) ASPART 100 UNITS/ML 10ML VIAL SQ SCH (18:16)
[2021-07-16] MEDS: INSULIN (LEVEMIR) 100 UNITS/ML UNITS SQ SCH (21:49)
[2021-07-16] MEDS: ACETAMINOPHEN 325 MG TABLET (FP) PO PRN (21:49)
[2021-07-16] MEDS: HEPARIN NA (PORCINE) 5,000 UNITS/ML 1ML VIAL SQ SCH (21:52)
[2021-07-17] MEDS: DEXTROSE 5%-0.45% SALINE 1,000 ML IV SCH (01:15)
[2021-07-17] MEDS: LACTATED RINGERS SOLUTION 1,000 ML IV SCH (01:16)
[2021-07-17] MEDS ORDERED: ONDANSETRON 4 MG/2 ML VIAL IVPUSH ONE (01:31)
[2021-07-17] MEDS ORDERED: ACETAMINOPHEN 1000 MG/100 ML BAG IVPB ONE (01:32)
[2021-07-17] MEDS: POLYETHYLENE GLYCOL (HEALTHYLAX) 3350 17 GM PACKET PO SCH ×3 (08:10→23:09)
[2021-07-17] MEDS: INSULIN (LEVEMIR) 100 UNITS/ML UNITS SQ SCH ×2 (08:10→23:09)
[2021-07-17] MEDS: INSULIN (NOVOLOG) ASPART 100 UNITS/ML 10ML VIAL SQ SCH ×3 (08:10→18:09)
[2021-07-17 08:24] LABS: BASO % 0.6 % (0-2.0); EOS % 1.5 % (0-4.5); HEMATOCRIT 31.3 % (32.4-45.2); HEMOGLOBIN 10.2 GM/dL (10.7-15.3); LYMPH % 23.8 % (8-40); MCH 28.6 pg (25.7-33.7); MCHC 32.5 g/dl (32.0-36.0); MEAN PLT VOLUME 8.2 fl (7.5-11.1); MONO % 7.1 % (3.8-10.2); PLATELET COUNT 265 10^3/uL (134-434); RBC 3.56 M/mm3 (3.60-5.2); RDW 14.4 % (11.6-15.6); WHITE BLOOD COUNT 7.7 K/mm3 (4.0-10.0)
[2021-07-17 08:40] LABS: ALBUMIN 2.9 g/dl (3.4-5.0); CALCIUM 8.9 mg/dL (8.5-10.1)
[2021-07-17 08:41] LABS: BLOOD UREA NITROGEN 7.5 mg/dL (7-18)
[2021-07-17] MEDS: ALBUTEROL SO4 2.5/IPRATROPIUM 0.5 INH SOL 3 ML VIAL.NEB. NEB SCH ×4 (08:41→20:07)
[2021-07-17 08:43] LABS: CREATININE 0.8 mg/dL (0.55-1.3)
[2021-07-17 08:45] LABS: BILIRUBIN,TOTAL 0.6 mg/dL (0.2-1); TOT PROT 6.9 g/dl (6.4-8.2)
[2021-07-17] MEDS: HEPARIN NA (PORCINE) 5,000 UNITS/ML 1ML VIAL SQ SCH ×2 (10:02→23:09)
[2021-07-17] MEDS: amLODIPine BESYLATE 10 MG TABLET (FP) PO SCH (10:02)
[2021-07-17] MEDS: TIOTROPIUM BROMIDE 2.5 MCG (SPIRIVA) RESPIMAT INHALER IH SCH (10:07)
[2021-07-17] MEDS ORDERED: POTASSIUM CHLORIDE ORAL LIQUID 20 MEQ/15 ML PO ONE (12:25)
[2021-07-17] MEDS: SODIUM CHLORIDE 0.45%/POT 20 MEQ/1,000 ML INFUS.BAG IV SCH (12:51)
[2021-07-17] MEDS: ACETAMINOPHEN 325 MG TABLET (FP) PO PRN (23:08)
[2021-07-18] MEDS: POLYETHYLENE GLYCOL (HEALTHYLAX) 3350 17 GM PACKET PO SCH ×3 (07:26→22:24)
[2021-07-18] MEDS: INSULIN (LEVEMIR) 100 UNITS/ML UNITS SQ SCH ×2 (07:30→22:24)
[2021-07-18] MEDS: INSULIN (NOVOLOG) ASPART 100 UNITS/ML 10ML VIAL SQ SCH ×3 (07:31→17:02)
[2021-07-18] MEDS: ALBUTEROL SO4 2.5/IPRATROPIUM 0.5 INH SOL 3 ML VIAL.NEB. NEB SCH (08:40)
[2021-07-18] MEDS: amLODIPine BESYLATE 10 MG TABLET (FP) PO SCH (10:24)
[2021-07-18] MEDS: HEPARIN NA (PORCINE) 5,000 UNITS/ML 1ML VIAL SQ SCH ×2 (10:25→22:24)
[2021-07-18] MEDS: TIOTROPIUM BROMIDE 2.5 MCG (SPIRIVA) RESPIMAT INHALER IH SCH ×2 (10:25→10:28)
[2021-07-18] MEDS: ALBUTEROL SO4 0.083% IH SOL 2.5 MG/3 ML VIAL.NEB. NEB SCH ×3 (11:28→20:05)
[2021-07-18] MEDS: SODIUM CHLORIDE 0.45%/POT 20 MEQ/1,000 ML INFUS.BAG IV SCH ×2 (14:49→17:04)
[2021-07-18] MEDS: ACETAMINOPHEN 325 MG TABLET (FP) PO PRN (22:17)
[2021-07-19] MEDS: POLYETHYLENE GLYCOL (HEALTHYLAX) 3350 17 GM PACKET PO SCH ×3 (05:06→21:41)
[2021-07-19] MEDS: INSULIN (NOVOLOG) ASPART 100 UNITS/ML 10ML VIAL SQ SCH ×3 (05:59→17:10)
[2021-07-19] MEDS: INSULIN (LEVEMIR) 100 UNITS/ML UNITS SQ SCH ×2 (06:00→21:44)
[2021-07-19] MEDS: ALBUTEROL SO4 0.083% IH SOL 2.5 MG/3 ML VIAL.NEB. NEB SCH ×4 (08:59→20:38)
[2021-07-19] MEDS: amLODIPine BESYLATE 10 MG TABLET (FP) PO SCH (10:58)
[2021-07-19] MEDS: HEPARIN NA (PORCINE) 5,000 UNITS/ML 1ML VIAL SQ SCH ×2 (11:00→21:44)
[2021-07-19] MEDS: TIOTROPIUM BROMIDE 2.5 MCG (SPIRIVA) RESPIMAT INHALER IH SCH (11:06)
[2021-07-19] MEDS: SODIUM CHLORIDE 0.45%/POT 20 MEQ/1,000 ML INFUS.BAG IV SCH (14:50)
[2021-07-19] MEDS ORDERED: MAG HYDROX/AL HYDROX/SIMETH 30 ML UNIT-DOSE CUP PO PRN (19:21)
[2021-07-20] MEDS: POLYETHYLENE GLYCOL (HEALTHYLAX) 3350 17 GM PACKET PO SCH ×4 (05:32→23:18)
[2021-07-20] MEDS: INSULIN (LEVEMIR) 100 UNITS/ML UNITS SQ SCH ×2 (06:14→23:13)
[2021-07-20] MEDS: INSULIN (NOVOLOG) ASPART 100 UNITS/ML 10ML VIAL SQ SCH ×3 (06:14→17:06)
[2021-07-20] MEDS: ALBUTEROL SO4 0.083% IH SOL 2.5 MG/3 ML VIAL.NEB. NEB SCH ×4 (09:10→19:56)
[2021-07-20] MEDS: amLODIPine BESYLATE 10 MG TABLET (FP) PO SCH (11:23)
[2021-07-20] MEDS: HEPARIN NA (PORCINE) 5,000 UNITS/ML 1ML VIAL SQ SCH ×2 (11:25→23:11)
[2021-07-20] MEDS: TIOTROPIUM BROMIDE 2.5 MCG (SPIRIVA) RESPIMAT INHALER IH SCH (11:29)
[2021-07-20] MEDS: ACETAMINOPHEN 325 MG TABLET (FP) PO PRN (18:40)
[2021-07-21] MEDS: POLYETHYLENE GLYCOL (HEALTHYLAX) 3350 17 GM PACKET PO SCH ×2 (05:39→15:19)
[2021-07-21] MEDS: INSULIN (LEVEMIR) 100 UNITS/ML UNITS SQ SCH ×2 (06:03→22:07)
[2021-07-21] MEDS: INSULIN (NOVOLOG) ASPART 100 UNITS/ML 10ML VIAL SQ SCH ×3 (06:03→17:57)
[2021-07-21] MEDS ORDERED: INSULIN (LEVEMIR) 100 UNITS/ML UNITS SQ ONE (06:35)
[2021-07-21] MEDS: ALBUTEROL SO4 0.083% IH SOL 2.5 MG/3 ML VIAL.NEB. NEB SCH ×5 (07:27→20:18)
[2021-07-21] MEDS: HEPARIN NA (PORCINE) 5,000 UNITS/ML 1ML VIAL SQ SCH ×2 (10:45→22:07)
[2021-07-21] MEDS: TIOTROPIUM BROMIDE 2.5 MCG (SPIRIVA) RESPIMAT INHALER IH SCH (10:45)
[2021-07-21] MEDS: amLODIPine BESYLATE 10 MG TABLET (FP) PO SCH (10:47)
[2021-07-21] MEDS ORDERED: SIMETHICONE 80 MG TAB.CHEW (FP) PO PRN (12:19)
[2021-07-21] MEDS: ONDANSETRON 4 MG/2 ML VIAL IVPUSH PRN (15:07)
[2021-07-21 17:47] LABS: BASO % 0.3 % (0-2.0); EOS % 1.8 % (0-4.5); HEMATOCRIT 36.3 % (32.4-45.2); HEMOGLOBIN 11.8 GM/dL (10.7-15.3); LYMPH % 20.6 % (8-40); MCH 28.3 pg (25.7-33.7); MCHC 32.4 g/dl (32.0-36.0); MEAN CELL VOLUME 87.5 fl (80-96); MEAN PLT VOLUME 7.9 fl (7.5-11.1); MONO % 7.7 % (3.8-10.2); NEUT % 69.6 % (42.8-82.8); PLATELET COUNT 339 10^3/uL (134-434); RBC 4.15 M/mm3 (3.60-5.2); WHITE BLOOD COUNT 9.7 K/mm3 (4.0-10.0)
[2021-07-21 17:55] LABS: INR 1.15 (0.83-1.09); PROTHROMBIN TIME (PATIENT) 13.2 SEC (9.7-13.0)
[2021-07-21 18:09] LABS: CALCIUM 9.4 mg/dL (8.5-10.1)
[2021-07-21 18:10] LABS: BLOOD UREA NITROGEN 10.3 mg/dL (7-18); MAGNESIUM 1.8 mg/dL (1.8-2.4)
[2021-07-21 18:13] LABS: CREATININE 0.9 mg/dL (0.55-1.3); PHOSPHOROUS 3.2 mg/dL (2.5-4.9)
[2021-07-22] MEDS: ACETAMINOPHEN 1000 MG/100 ML BAG IVPB PRN ×2 (00:31→17:00)
[2021-07-22 04:13] LABS: BASO % 0.7 % (0-2.0); EOS % 1.1 % (0-4.5); HEMATOCRIT 38.6 % (32.4-45.2); HEMOGLOBIN 12.4 GM/dL (10.7-15.3); LYMPH % 16.5 % (8-40); MCH 28.2 pg (25.7-33.7); MCHC 32.1 g/dl (32.0-36.0); MEAN CELL VOLUME 87.9 fl (80-96); MEAN PLT VOLUME 7.7 fl (7.5-11.1); MONO % 6.4 % (3.8-10.2); NEUT % 75.3 % (42.8-82.8); PLATELET COUNT 347 10^3/uL (134-434); RBC 4.39 M/mm3 (3.60-5.2); RDW 15.1 % (11.6-15.6); WHITE BLOOD COUNT 10.5 K/mm3 (4.0-10.0)
[2021-07-22 04:34] LABS: CALCIUM 9.6 mg/dL (8.5-10.1)
[2021-07-22 04:35] LABS: BLOOD UREA NITROGEN 9.5 mg/dL (7-18)
[2021-07-22 04:38] LABS: CREATININE 0.9 mg/dL (0.55-1.3)
[2021-07-22 04:39] LABS: TOT PROT 7.9 g/dl (6.4-8.2)
[2021-07-22 04:40] LABS: BILIRUBIN,TOTAL 0.7 mg/dL (0.2-1)
[2021-07-22] MEDS: ONDANSETRON 4 MG/2 ML VIAL IVPUSH PRN ×2 (04:42→16:52)
[2021-07-22 04:52] LABS: ALBUMIN 3.6 g/dl (3.4-5.0)
[2021-07-22] MEDS ORDERED: ATORVASTATIN CA 80 MG TABLET (FP) PO ONE ×2 (05:30→07:45)
[2021-07-22] MEDS ORDERED: ASPIRIN 325 MG ENTERIC COATED TABLET (FP) PO ONE ×3 (05:30→07:45)
[2021-07-22] MEDS: INSULIN (LEVEMIR) 100 UNITS/ML UNITS SQ SCH ×2 (07:41→22:36)
[2021-07-22] MEDS: INSULIN (NOVOLOG) ASPART 100 UNITS/ML 10ML VIAL SQ SCH ×3 (07:41→16:56)
[2021-07-22] MEDS: ALBUTEROL SO4 0.083% IH SOL 2.5 MG/3 ML VIAL.NEB. NEB SCH ×4 (07:44→20:05)
[2021-07-22] MEDS: amLODIPine BESYLATE 10 MG TABLET (FP) PO SCH (09:04)
[2021-07-22] MEDS: HEPARIN NA (PORCINE) 5,000 UNITS/ML 1ML VIAL SQ SCH ×2 (09:44→22:39)
[2021-07-22] MEDS: D5-1/2NS+20 MEQ KCL - 20 MEQ/1,000 ML INFUS.BAG IV SCH (14:06)
[2021-07-22] MEDS ORDERED: ALPRAZolam 0.25 MG TABLET PO ONE (15:00)
[2021-07-22] MEDS: TIOTROPIUM BROMIDE 2.5 MCG (SPIRIVA) RESPIMAT INHALER IH SCH ×2 (15:51→15:54)
[2021-07-23] MEDS: ACETAMINOPHEN 325 MG TABLET (FP) PO PRN (03:33)
[2021-07-23] MEDS ORDERED: VANCOMYCIN/WATER FOR INJ (PEG) 1,000 MG/200 ML BAG IVPB ONE (05:45)
[2021-07-23] MEDS: INSULIN (LEVEMIR) 100 UNITS/ML UNITS SQ SCH ×2 (06:39→21:07)
[2021-07-23] MEDS: INSULIN (NOVOLOG) ASPART 100 UNITS/ML 10ML VIAL SQ SCH ×3 (06:40→16:55)
[2021-07-23] MEDS ORDERED: ACETAMINOPHEN 325 MG TABLET (FP) PO PRN (07:08)
[2021-07-23] MEDS ORDERED: ONDANSETRON 4 MG/2 ML VIAL IVPUSH PRN (07:08)
[2021-07-23] MEDS: ALBUTEROL SO4 0.083% IH SOL 2.5 MG/3 ML VIAL.NEB. NEB SCH ×4 (07:25→19:49)
[2021-07-23] MEDS: HEPARIN NA (PORCINE) 5,000 UNITS/ML 1ML VIAL SQ SCH ×2 (10:02→21:07)
[2021-07-23] MEDS: amLODIPine BESYLATE 10 MG TABLET (FP) PO SCH (10:02)
[2021-07-23] MEDS: TIOTROPIUM BROMIDE 2.5 MCG (SPIRIVA) RESPIMAT INHALER IH SCH (10:02)
[2021-07-23] MEDS: ASPIRIN 81 MG CHEWABLE TABLETS PO SCH (10:03)
[2021-07-23] MEDS: D5-1/2NS+20 MEQ KCL - 20 MEQ/1,000 ML INFUS.BAG IV SCH (13:30)
[2021-07-23 15:33] LABS: EPI CELLS >36 /uL (0-25.1); HYALINE CASTS 6 /uL (0-3.1); URINE APPEARANCE CLOUDY; URINE BACTERIA 4150 /uL (0-1359); URINE BILIRUBIN NEGATIVE (NEGATIVE); URINE COLOR YELLOW; URINE GLUCOSE (UA) NEGATIVE (NEGATIVE); URINE KETONE TRACE (NEGATIVE); URINE LEUK ESTERASE 1+ (NEGATIVE); URINE NITRITE POSITIVE (NEGATIVE); URINE PROTEIN 2+ (NEGATIVE); URINE RBC 121 /uL (0-23.9); URINE WBC 2262 /uL (0-25.8)
[2021-07-23 16:51] LABS: BASO % 0.5 % (0-2.0); EOS % 1.9 % (0-4.5); HEMOGLOBIN 11.2 GM/dL (10.7-15.3); LYMPH % 23.6 % (8-40); MCH 28.5 pg (25.7-33.7); MCHC 32.1 g/dl (32.0-36.0); MEAN CELL VOLUME 88.7 fl (80-96); MEAN PLT VOLUME 7.9 fl (7.5-11.1); MONO % 8.5 % (3.8-10.2); NEUT % 65.5 % (42.8-82.8); PLATELET COUNT 322 10^3/uL (134-434); RBC 3.95 M/mm3 (3.60-5.2); RDW 15.2 % (11.6-15.6); WHITE BLOOD COUNT 8.1 K/mm3 (4.0-10.0)
[2021-07-23 16:57] LABS: YEAST FEW (NEGATIVE)
[2021-07-23 17:11] LABS: CALCIUM 9.1 mg/dL (8.5-10.1)
[2021-07-23 17:12] LABS: ALBUMIN 3.2 g/dl (3.4-5.0); BLOOD UREA NITROGEN 11.9 mg/dL (7-18)
[2021-07-23 17:15] LABS: CREATININE 0.8 mg/dL (0.55-1.3)
[2021-07-23 17:16] LABS: TOT PROT 7.4 g/dl (6.4-8.2)
[2021-07-23 17:17] LABS: BILIRUBIN,TOTAL 0.7 mg/dL (0.2-1)
[2021-07-23] MEDS ORDERED: ACETAMINOPHEN 1000 MG/100 ML BAG IVPB ONE (19:45)
[2021-07-24] MEDS: INSULIN (LEVEMIR) 100 UNITS/ML UNITS SQ SCH ×2 (06:13→21:26)
[2021-07-24] MEDS: INSULIN (NOVOLOG) ASPART 100 UNITS/ML 10ML VIAL SQ SCH ×3 (06:13→16:40)
[2021-07-24] MEDS ORDERED: ACETAMINOPHEN INJECTION 100 ML IVPB ONE (07:27)
[2021-07-24] MEDS: ACETAMINOPHEN 1000 MG/100 ML BAG IVPB PRN ×2 (07:35→20:23)
[2021-07-24] MEDS: ALBUTEROL SO4 0.083% IH SOL 2.5 MG/3 ML VIAL.NEB. NEB SCH ×4 (08:02→20:05)
[2021-07-24] MEDS: ASPIRIN 81 MG CHEWABLE TABLETS PO SCH (10:23)
[2021-07-24] MEDS: amLODIPine BESYLATE 10 MG TABLET (FP) PO SCH (10:24)
[2021-07-24] MEDS: HEPARIN NA (PORCINE) 5,000 UNITS/ML 1ML VIAL SQ SCH ×2 (10:24→21:27)
[2021-07-24] MEDS: TIOTROPIUM BROMIDE 2.5 MCG (SPIRIVA) RESPIMAT INHALER IH SCH (10:24)
[2021-07-24] MEDS: D5-1/2NS+20 MEQ KCL - 20 MEQ/1,000 ML INFUS.BAG IV SCH (13:30)
[2021-07-24] MEDS: PANTOPRAZOLE SODIUM 40 MG VIAL IVPUSH SCH (21:26)
[2021-07-25] MEDS: ACETAMINOPHEN 1000 MG/100 ML BAG IVPB PRN ×3 (05:47→22:30)
[2021-07-25] MEDS: D5-1/2NS+20 MEQ KCL - 20 MEQ/1,000 ML INFUS.BAG IV SCH ×3 (05:50→18:37)
[2021-07-25] MEDS: INSULIN (LEVEMIR) 100 UNITS/ML UNITS SQ SCH ×2 (06:04→21:34)
[2021-07-25] MEDS: INSULIN (NOVOLOG) ASPART 100 UNITS/ML 10ML VIAL SQ SCH ×3 (06:05→17:45)
[2021-07-25] MEDS: ALBUTEROL SO4 0.083% IH SOL 2.5 MG/3 ML VIAL.NEB. NEB SCH ×4 (08:43→20:09)
[2021-07-25] MEDS: HEPARIN NA (PORCINE) 5,000 UNITS/ML 1ML VIAL SQ SCH ×3 (10:09→21:35)
[2021-07-25] MEDS: PANTOPRAZOLE SODIUM 40 MG VIAL IVPUSH SCH ×2 (10:10→21:37)
[2021-07-25] MEDS: ASPIRIN 81 MG CHEWABLE TABLETS PO SCH (10:10)
[2021-07-25] MEDS: amLODIPine BESYLATE 10 MG TABLET (FP) PO SCH (10:10)
[2021-07-25] MEDS: TIOTROPIUM BROMIDE 2.5 MCG (SPIRIVA) RESPIMAT INHALER IH SCH ×2 (10:11→10:19)
[2021-07-25 13:14] LABS: BASO % 0.4 % (0-2.0); EOS % 2.3 % (0-4.5); HEMATOCRIT 34.9 % (32.4-45.2); HEMOGLOBIN 11.2 GM/dL (10.7-15.3); MCH 28.4 pg (25.7-33.7); MCHC 32.1 g/dl (32.0-36.0); MEAN CELL VOLUME 88.2 fl (80-96); MEAN PLT VOLUME 7.7 fl (7.5-11.1); MONO % 6.7 % (3.8-10.2); NEUT % 63.6 % (42.8-82.8); PLATELET COUNT 306 10^3/uL (134-434); RBC 3.96 M/mm3 (3.60-5.2); RDW 14.9 % (11.6-15.6); WHITE BLOOD COUNT 7.4 K/mm3 (4.0-10.0)
[2021-07-25 13:34] LABS: CALCIUM 9.6 mg/dL (8.5-10.1)
[2021-07-25 13:35] LABS: ALBUMIN 3.3 g/dl (3.4-5.0); BLOOD UREA NITROGEN 9.5 mg/dL (7-18)
[2021-07-25 13:38] LABS: CREATININE 0.8 mg/dL (0.55-1.3)
[2021-07-25 13:39] LABS: TOT PROT 7.3 g/dl (6.4-8.2)
[2021-07-25 13:40] LABS: BILIRUBIN,TOTAL 0.7 mg/dL (0.2-1)
[2021-07-26] MEDS: INSULIN (NOVOLOG) ASPART 100 UNITS/ML 10ML VIAL SQ SCH ×3 (06:46→16:47)
[2021-07-26] MEDS: ACETAMINOPHEN 1000 MG/100 ML BAG IVPB PRN (06:46)
[2021-07-26] MEDS: INSULIN (LEVEMIR) 100 UNITS/ML UNITS SQ SCH ×2 (06:46→21:46)
[2021-07-26] MEDS: ALBUTEROL SO4 0.083% IH SOL 2.5 MG/3 ML VIAL.NEB. NEB SCH ×4 (07:35→19:50)
[2021-07-26 08:46] LABS: BASO % 0.5 % (0-2.0); EOS % 2.3 % (0-4.5); HEMATOCRIT 34.3 % (32.4-45.2); HEMOGLOBIN 11.2 GM/dL (10.7-15.3); LYMPH % 24.1 % (8-40); MCH 28.5 pg (25.7-33.7); MCHC 32.6 g/dl (32.0-36.0); MEAN CELL VOLUME 87.4 fl (80-96); MEAN PLT VOLUME 8.3 fl (7.5-11.1); MONO % 6.7 % (3.8-10.2); NEUT % 66.4 % (42.8-82.8); PLATELET COUNT 313 10^3/uL (134-434); RBC 3.92 M/mm3 (3.60-5.2); RDW 14.8 % (11.6-15.6); WHITE BLOOD COUNT 6.6 K/mm3 (4.0-10.0)
[2021-07-26 09:16] LABS: CALCIUM 9.2 mg/dL (8.5-10.1)
[2021-07-26 09:17] LABS: BLOOD UREA NITROGEN 8.4 mg/dL (7-18)
[2021-07-26 09:20] LABS: CREATININE 0.7 mg/dL (0.55-1.3)
[2021-07-26] MEDS: PANTOPRAZOLE SODIUM 40 MG VIAL IVPUSH SCH ×2 (10:17→21:42)
[2021-07-26] MEDS: amLODIPine BESYLATE 10 MG TABLET (FP) PO SCH (11:20)
[2021-07-26] MEDS: ASPIRIN 81 MG CHEWABLE TABLETS PO SCH (11:26)
[2021-07-26] MEDS: HEPARIN NA (PORCINE) 5,000 UNITS/ML 1ML VIAL SQ SCH ×2 (11:26→21:46)
[2021-07-26] MEDS: TIOTROPIUM BROMIDE 2.5 MCG (SPIRIVA) RESPIMAT INHALER IH SCH (11:28)
[2021-07-26 12:16] LABS: MAGNESIUM 1.6 mg/dL (1.8-2.4)
[2021-07-26] MEDS ORDERED: ACETAMINOPHEN 500 MG TABLET (FP) PO PRN (18:06)
[2021-07-26] MEDS ORDERED: ACETAMINOPHEN 1000 MG/100 ML BAG IVPB ONE (21:52)
[2021-07-26] MEDS: D5-1/2NS+20 MEQ KCL - 20 MEQ/1,000 ML INFUS.BAG IV SCH (22:24)
[2021-07-27] MEDS: INSULIN (NOVOLOG) ASPART 100 UNITS/ML 10ML VIAL SQ SCH ×2 (06:16→11:12)
[2021-07-27] MEDS: INSULIN (LEVEMIR) 100 UNITS/ML UNITS SQ SCH ×2 (06:17→21:43)
[2021-07-27] MEDS: ALBUTEROL SO4 0.083% IH SOL 2.5 MG/3 ML VIAL.NEB. NEB SCH ×4 (08:07→19:56)
[2021-07-27] MEDS: amLODIPine BESYLATE 10 MG TABLET (FP) PO SCH (09:41)
[2021-07-27] MEDS: PANTOPRAZOLE SODIUM 40 MG VIAL IVPUSH SCH ×2 (09:41→21:48)
[2021-07-27] MEDS: ASPIRIN 81 MG CHEWABLE TABLETS PO SCH (09:41)
[2021-07-27] MEDS: HEPARIN NA (PORCINE) 5,000 UNITS/ML 1ML VIAL SQ SCH ×2 (09:41→21:43)
[2021-07-27] MEDS: TIOTROPIUM BROMIDE 2.5 MCG (SPIRIVA) RESPIMAT INHALER IH SCH (09:42)
[2021-07-27] MEDS: D5-1/2NS+20 MEQ KCL - 20 MEQ/1,000 ML INFUS.BAG IV SCH (14:00)
[2021-07-27] MEDS: ACETAMINOPHEN 650 MG/20.3 ML ORAL SOLUTION (CUPS) PO PRN ×2 (15:55→21:48)
[2021-07-27] MEDS: INSULIN SLIDING SCALE (NOVOLOG) 1 VIAL SQ SCH (16:50)
[2021-07-28] MEDS: INSULIN (LEVEMIR) 100 UNITS/ML UNITS SQ SCH ×2 (06:30→21:42)
[2021-07-28] MEDS: INSULIN SLIDING SCALE (NOVOLOG) 1 VIAL SQ SCH ×3 (06:30→17:33)
[2021-07-28] MEDS ORDERED: ACETAMINOPHEN 650 MG/20.3 ML ORAL SOLUTION (CUPS) NGT PRN (08:47)
[2021-07-28] MEDS: amLODIPine BESYLATE 10 MG TABLET (FP) PO SCH (09:02)
[2021-07-28] MEDS: ASPIRIN 81 MG CHEWABLE TABLETS PO SCH (09:02)
[2021-07-28] MEDS: PANTOPRAZOLE SODIUM 40 MG VIAL IVPUSH SCH ×2 (09:03→21:36)
[2021-07-28] MEDS: TIOTROPIUM BROMIDE 2.5 MCG (SPIRIVA) RESPIMAT INHALER IH SCH (09:03)
[2021-07-28] MEDS: HEPARIN NA (PORCINE) 5,000 UNITS/ML 1ML VIAL SQ SCH ×2 (09:03→21:42)
[2021-07-28] MEDS ORDERED: amLODIPine BESYLATE 10 MG TABLET (FP) NGT SCH (10:00)
[2021-07-28] MEDS ORDERED: ASPIRIN 81 MG CHEWABLE TABLETS NGT SCH (10:00)
[2021-07-28] MEDS: D5-1/2NS+20 MEQ KCL - 20 MEQ/1,000 ML INFUS.BAG IV SCH ×2 (18:47)
[2021-07-29] MEDS: ACETAMINOPHEN 650 MG/20.3 ML ORAL SOLUTION (CUPS) PO PRN ×2 (01:56→21:49)
[2021-07-29] MEDS: INSULIN SLIDING SCALE (NOVOLOG) 1 VIAL SQ SCH ×3 (06:13→16:43)
[2021-07-29] MEDS: INSULIN (LEVEMIR) 100 UNITS/ML UNITS SQ SCH ×2 (06:13→21:54)
[2021-07-29 08:47] LABS: CALCIUM 8.9 mg/dL (8.5-10.1)
[2021-07-29 08:48] LABS: BLOOD UREA NITROGEN 3.4 mg/dL (7-18)
[2021-07-29 08:51] LABS: CREATININE 0.7 mg/dL (0.55-1.3)
[2021-07-29] MEDS: ASPIRIN 81 MG CHEWABLE TABLETS PO SCH (09:54)
[2021-07-29] MEDS: PANTOPRAZOLE SODIUM 40 MG VIAL IVPUSH SCH ×2 (09:54→21:49)
[2021-07-29] MEDS: amLODIPine BESYLATE 10 MG TABLET (FP) PO SCH (09:54)
[2021-07-29] MEDS: HEPARIN NA (PORCINE) 5,000 UNITS/ML 1ML VIAL SQ SCH ×2 (09:55→21:44)
[2021-07-29] MEDS: TIOTROPIUM BROMIDE 2.5 MCG (SPIRIVA) RESPIMAT INHALER IH SCH (12:22)
[2021-07-29] MEDS: D5-1/2NS+20 MEQ KCL - 20 MEQ/1,000 ML INFUS.BAG IV SCH (16:37)
[2021-07-29] MEDS ORDERED: ALBUTEROL SO4 2.5/IPRATROPIUM 0.5 INH SOL 3 ML VIAL.NEB. NEB PRN (21:33)
[2021-07-30] MEDS: D5-1/2NS+20 MEQ KCL - 20 MEQ/1,000 ML INFUS.BAG IV SCH (04:00)
[2021-07-30] MEDS: INSULIN SLIDING SCALE (NOVOLOG) 1 VIAL SQ SCH ×3 (06:28→16:49)
[2021-07-30] MEDS: INSULIN (LEVEMIR) 100 UNITS/ML UNITS SQ SCH ×2 (06:28→21:16)
[2021-07-30 08:09] LABS: BASO % 0.7 % (0-2.0); EOS % 2.8 % (0-4.5); HEMATOCRIT 34.4 % (32.4-45.2); HEMOGLOBIN 11.1 GM/dL (10.7-15.3); LYMPH % 27.6 % (8-40); MCH 28.4 pg (25.7-33.7); MCHC 32.4 g/dl (32.0-36.0); MEAN CELL VOLUME 87.7 fl (80-96); MEAN PLT VOLUME 7.8 fl (7.5-11.1); NEUT % 62.9 % (42.8-82.8); PLATELET COUNT 310 10^3/uL (134-434); RBC 3.92 M/mm3 (3.60-5.2); RDW 15.3 % (11.6-15.6); WHITE BLOOD COUNT 6.1 K/mm3 (4.0-10.0)
[2021-07-30 08:29] LABS: BLOOD UREA NITROGEN 4.5 mg/dL (7-18); CALCIUM 9.3 mg/dL (8.5-10.1)
[2021-07-30 08:32] LABS: CREATININE 0.8 mg/dL (0.55-1.3)
[2021-07-30 08:34] LABS: BILIRUBIN,TOTAL 0.6 mg/dL (0.2-1)
[2021-07-30] MEDS: amLODIPine BESYLATE 10 MG TABLET (FP) PO SCH (09:10)
[2021-07-30] MEDS: PANTOPRAZOLE SODIUM 40 MG VIAL IVPUSH SCH ×2 (09:10→21:16)
[2021-07-30] MEDS: ASPIRIN 81 MG CHEWABLE TABLETS PO SCH (09:10)
[2021-07-30] MEDS: TIOTROPIUM BROMIDE 2.5 MCG (SPIRIVA) RESPIMAT INHALER IH SCH (09:10)
[2021-07-30] MEDS: ACETAMINOPHEN 650 MG/20.3 ML ORAL SOLUTION (CUPS) PO PRN (18:29)
[2021-07-31] MEDS: ACETAMINOPHEN 650 MG/20.3 ML ORAL SOLUTION (CUPS) PO PRN ×2 (06:20→23:22)
[2021-07-31] MEDS: INSULIN SLIDING SCALE (NOVOLOG) 1 VIAL SQ SCH ×3 (06:21→16:40)
[2021-07-31] MEDS: INSULIN (LEVEMIR) 100 UNITS/ML UNITS SQ SCH ×2 (06:21→21:35)
[2021-07-31] MEDS: ASPIRIN 81 MG CHEWABLE TABLETS PO SCH (09:24)
[2021-07-31] MEDS: PANTOPRAZOLE SODIUM 40 MG VIAL IVPUSH SCH ×2 (09:24→09:48)
[2021-07-31] MEDS: amLODIPine BESYLATE 10 MG TABLET (FP) PO SCH (09:24)
[2021-07-31] MEDS: TIOTROPIUM BROMIDE 2.5 MCG (SPIRIVA) RESPIMAT INHALER IH SCH (09:24)
[2021-07-31] MEDS: PANTOPRAZOLE 40 MG TABLET PO SCH (12:12)
[2021-07-31] MEDS: POLYETHYLENE GLYCOL (HEALTHYLAX) 3350 17 GM PACKET PO SCH (12:12)
[2021-08-01 04:58] LABS: BLOOD UREA NITROGEN 7.6 mg/dL (7-18); MAGNESIUM 1.6 mg/dL (1.8-2.4)
[2021-08-01 05:01] LABS: CREATININE 0.8 mg/dL (0.55-1.3)
[2021-08-01] MEDS: INSULIN (LEVEMIR) 100 UNITS/ML UNITS SQ SCH (06:07)
[2021-08-01] MEDS: INSULIN SLIDING SCALE (NOVOLOG) 1 VIAL SQ SCH ×2 (06:07→11:03)
[2021-08-01] MEDS ORDERED: MAGNESIUM OXIDE 400 MG TABLET (FP) PO SCH (10:00)
[2021-08-01] MEDS: POLYETHYLENE GLYCOL (HEALTHYLAX) 3350 17 GM PACKET PO SCH (10:17)
[2021-08-01] MEDS: amLODIPine BESYLATE 10 MG TABLET (FP) PO SCH (10:19)
[2021-08-01] MEDS: PANTOPRAZOLE 40 MG TABLET PO SCH (10:19)
[2021-08-01] MEDS: ASPIRIN 81 MG CHEWABLE TABLETS PO SCH (10:20)
[2021-08-01] MEDS: TIOTROPIUM BROMIDE 2.5 MCG (SPIRIVA) RESPIMAT INHALER IH SCH (10:20)
[2021-08-01 14:50] VITALS: BP 126/58; PULSE 76; TEMP 98.5
== END 2021-08-01 15:31 | DRG 357 ==
LOC: JER 16:47 → JERBED 21:23 → J6S 07-13 04:20 → J8W 07-13 18:11 → J4S 07-22 04:11
PROVIDERS: ADMIT Internal Medicine; ATTEND Internal Medicine
PROC: 0WJG4ZZ Inspection of Peritoneal Cavity, Percutaneous Endoscopic Approach (ICD-10-PCS; principal; 2021-07-15 08:00)
PROC: 0D9670Z Drainage of Stomach with Drainage Device, Via Natural or Artificial Opening (ICD-10-PCS; 2021-07-23)
DX: K52.9 Noninfective gastroenteritis and colitis, unspecified (principal); K56.609 Unspecified intestinal obstruction, unspecified as to partial versus complete obstruction; I13.0 Hypertensive heart and chronic kidney disease with heart failure and stage 1 through stage 4 chronic kidney disease, or unspecified chronic kidney disease; J96.11 Chronic respiratory failure with hypoxia; J90 Pleural effusion, not elsewhere classified; K92.0 Hematemesis; J98.11 Atelectasis; N18.30 Chronic kidney disease, stage 3 unspecified; F03.90 Unspecified dementia, unspecified severity, without behavioral disturbance, psychotic disturbance, mood disturbance, and anxiety; I50.9 Heart failure, unspecified; J44.9 Chronic obstructive pulmonary disease, unspecified; F32.A Depression, unspecified; J45.909 Unspecified asthma, uncomplicated; I25.10 Atherosclerotic heart disease of native coronary artery without angina pectoris; E78.5 Hyperlipidemia, unspecified; G89.29 Other chronic pain; Z79.891 Long term (current) use of opiate analgesic; R63.0 Anorexia; K59.00 Constipation, unspecified; E66.9 Obesity, unspecified; Z68.32 Body mass index [BMI] 32.0-32.9, adult
CPT/HCPCS: 36415; 70450-TC; 70496-TC; 70498-TC; 70551-TC; 71045-TC-FY; 74018-TC-FY; 74019-TC-FY; 74176-TC; 74177-TC; 80048; 80053; 81003; 82607; 82962; 83540; 83550; 83605; 83690; 83735; 84100; 84484; 85025; 85610; 85651; 85730; 86140; 86850; 86900; 86901; 87040; 87045; 87046; 87086; 87177; 87205; 87209; 87324; 87449; 93005; 93010; 93880-TC; 94010; 94640; 94760; 97116-GP; 97162-GP; 99285-25; C9803-CS; J1644; J3480; Q9967; U0003; U0005

== ENCOUNTER 2022-02-01 11:57 | Inpatient (IN) | payer OTHER ==
[2022-02-01] MEDS ORDERED: ACETAMINOPHEN 1000 MG/100 ML BAG IVPB ONE (13:45)
[2022-02-01] MEDS ORDERED: methylPREDNISolone NA SUCC 125 MG/2 ML VIAL IM ONE (13:48)
[2022-02-01] MEDS ORDERED: ACETAMINOPHEN INJECTION 100 ML IVPB ONE (13:53)
[2022-02-01] MEDS ORDERED: methylPREDNISolone NA SUCC 125 MG/2 ML VIAL ONE (13:53)
[2022-02-01] MEDS ORDERED: ALBUTEROL SO4 2.5/IPRATROPIUM 0.5 INH SOL 3 ML VIAL.NEB. NEB ONE ×2 (13:55→20:45)
[2022-02-01] MEDS: ALBUTEROL SO4 2.5/IPRATROPIUM 0.5 INH SOL 3 ML VIAL.NEB. NEB SCH ×2 (14:15→20:52)
[2022-02-01] MEDS ORDERED: methylPREDNISolone NA SUCC 125 MG/2 ML VIAL IVPUSH ONE (14:24)
[2022-02-01 15:04] LABS: HEMATOCRIT 34.4 % (32.4-45.2); HEMOGLOBIN 10.7 GM/dL (10.7-15.3); MCH 26.5 pg (25.7-33.7); MEAN CELL VOLUME 85.4 fl (80-96); PLATELET COUNT 313 10^3/uL (134-434); RBC 4.03 M/mm3 (3.60-5.2); RDW 15.3 % (11.6-15.6); WHITE BLOOD COUNT 10.8 K/mm3 (4.0-10.0)
[2022-02-01 15:14] LABS: INR 1.4 (0.83-1.09); PROTHROMBIN TIME (PATIENT) 16.2 SEC (9.7-13.0)
[2022-02-01 15:17] LABS: ACTIVATED PTT 38.2 SECONDS (25.2-36.5)
[2022-02-01 15:25] LABS: CALCIUM 9.4 mg/dL (8.5-10.1)
[2022-02-01 15:27] LABS: ALBUMIN 3.3 g/dl (3.4-5.0); BLOOD UREA NITROGEN 11.4 mg/dL (7-18)
[2022-02-01 15:29] LABS: CREATININE 0.9 mg/dL (0.55-1.3)
[2022-02-01 15:31] LABS: BILIRUBIN,TOTAL 0.6 mg/dL (0.2-1)
[2022-02-01 15:32] LABS: TOT PROT 7.4 g/dl (6.4-8.2)
[2022-02-01 15:33] LABS: ANISOCYTOSIS 0; HELMET CELLS 0; HOWELL-JOLLY BODIES 0; MACROCYTOSIS 0; OVALOCYTE 0; ROULEAU 0; SICKELED CELLS 0; TARGET CELLS 0; TEAR DROP CELLS 0; TOXIC GRANULATION 0
[2022-02-01 15:35] LABS: N-TERMINAL BNP 43.8 pg/ml (5-125)
[2022-02-01 15:44] LABS: VENOUS O2 SATURATION 42.4 % (70-80); VENOUS PH 7.3 (7.310-7.410)
[2022-02-01 15:46] LABS: VENOUS PCO2 76.5 mmHg (38-52)
[2022-02-01] MEDS ORDERED: VANCOMYCIN 1 GM in D5W (PRE-DOCKED) 1,000 MG/250 ML IVPB ONE (16:44)
[2022-02-01] MEDS ORDERED: CEFEPIME HCL/D5W 2 GM/50 ML BAG IVPB ONE (16:50)
[2022-02-01] MEDS ORDERED: CEFEPIME 2 GM/100 ML BAG IVPB ONE (17:09)
[2022-02-01] MEDS ORDERED: VANCOMYCIN/WATER FOR INJ (PEG) 1,000 MG/200 ML BAG IVPB ONE (17:42)
[2022-02-01 18:55] LABS: ARTERIAL BLD GAS O2 SATURATION 98.7 % (95-98); ARTERIAL BLOOD GAS BASE EXCESS -3.7 mmol/L (-2-2); ARTERIAL BLOOD GAS PO2 142.8 mmHg (80-100); ARTERIAL BLOOD GAS pH 7.325 (7.350-7.450)
[2022-02-01 19:02] LABS: ALLENS TEST POSITIVE; VENT MODE S/T; VENT RATE 16
[2022-02-01] MEDS ORDERED: TRIMETHOBENZAMIDE HCL 200MG/2ML INJ IM PRN (20:46)
[2022-02-01] MEDS ORDERED: ACETAMINOPHEN 1000 MG/100 ML BAG IVPB PRN (20:46)
[2022-02-01] MEDS ORDERED: ALBUTEROL SO4 HFA INHALER IH PRN (20:46)
[2022-02-01] MEDS ORDERED: BENZOCAINE/MENTH/CETYLPYRD CL 1 EACH LOZENGE MM PRN (20:46)
[2022-02-02] MEDS: INSULIN SLIDING SCALE (NOVOLOG) 1 VIAL SQ SCH ×5 (00:51→23:00)
[2022-02-02] MEDS: DEXAMETHASONE SOD PHOSPHATE 10 MG/1 ML VIAL IVPUSH SCH ×2 (03:54→10:36)
[2022-02-02 04:07] LABS: EPI CELLS >36 /uL (0-25.1); HYALINE CASTS 2 /uL (0-3.1); PH,URINE 5.5 (5.0-8.0); URINE APPEARANCE CLOUDY; URINE BACTERIA 317 /uL (0-1359); URINE BILIRUBIN NEGATIVE (NEGATIVE); URINE COLOR YELLOW; URINE GLUCOSE (UA) 3+ (NEGATIVE); URINE KETONE NEGATIVE (NEGATIVE); URINE LEUK ESTERASE 1+ (NEGATIVE); URINE NITRITE NEGATIVE (NEGATIVE); URINE PROTEIN NEGATIVE (NEGATIVE); URINE RBC 130 /uL (0-23.9); URINE UROBILINOGEN 0.2 mg/dL (0.2-1.0); URINE WBC 212 /uL (0-25.8)
[2022-02-02 04:11] VITALS: BMI 31.4
[2022-02-02] MEDS ORDERED: guaiFENesin 200 MG/10 ML 10 ML UNIT-DOSE CUPS PO PRN (06:04)
[2022-02-02] MEDS ORDERED: MELATONIN 5 MG TABLETS PO PRN (06:04)
[2022-02-02] MEDS ORDERED: SODIUM PHOSPHATE/NA BIPHOS 133 ML ENEMA RC PRN (06:13)
[2022-02-02] MEDS: ALBUTEROL SO4 2.5/IPRATROPIUM 0.5 INH SOL 3 ML VIAL.NEB. NEB SCH (08:03)
[2022-02-02 09:25] LABS: BLOOD UREA NITROGEN 17.3 mg/dL (7-18); CALCIUM 9.7 mg/dL (8.5-10.1)
[2022-02-02 09:29] LABS: CREATININE 0.9 mg/dL (0.55-1.3); PHOSPHOROUS 3.1 mg/dL (2.5-4.9)
[2022-02-02] MEDS ORDERED: GABAPENTIN 100 MG CAPSULE PO SCH (10:00)
[2022-02-02] MEDS ORDERED: REMDESIVIR 200 MG in SODIUM CHLORIDE 250 ML IVPB ONE (10:00)
[2022-02-02] MEDS: amLODIPine BESYLATE 10 MG TABLET (FP) PO SCH (10:36)
[2022-02-02] MEDS: APIXABAN 5 MG TABLET PO SCH ×2 (10:36→22:53)
[2022-02-02] MEDS: PANTOPRAZOLE 40 MG TABLET PO SCH (10:36)
[2022-02-02] MEDS: NYSTATIN POWDER 100,000 UNITS/GM - 15 GM TOPICAL POWDER TP SCH (10:37)
[2022-02-02] MEDS: SERTRALINE HCL 25 MG TABLET (FP) PO SCH (10:37)
[2022-02-02] MEDS: GABAPENTIN 100 MG CAPSULE PO SCH ×2 (10:37→22:53)
[2022-02-02] MEDS: AZITHROMYCIN IVPB 500 MG/250 ML BAG IVPB SCH (10:39)
[2022-02-02] MEDS ORDERED: ACETAMINOPHEN 325 MG TABLET (FP) PO PRN (12:20)
[2022-02-02] MEDS: BUDESONIDE/FORMETEROL FUMARATE 160/4.5 mcg INHALER IH SCH ×2 (12:48→22:59)
[2022-02-02] MEDS: POLYETHYLENE GLYCOL (HEALTHYLAX) 3350 17 GM PACKET PO SCH ×4 (16:01→23:14)
[2022-02-02] MEDS ORDERED: ATORVASTATIN CA 20 MG TABLET (FP) PO SCH (22:00)
[2022-02-02] MEDS ORDERED: GABAPENTIN 300 MG CAPSULE PO SCH (22:00)
[2022-02-02] MEDS: INSULIN (LEVEMIR) 100 UNITS/ML UNITS SQ SCH (22:54)
[2022-02-03] MEDS: NYSTATIN POWDER 100,000 UNITS/GM - 15 GM TOPICAL POWDER TP SCH ×3 (00:46→22:18)
[2022-02-03] MEDS: POLYETHYLENE GLYCOL (HEALTHYLAX) 3350 17 GM PACKET PO SCH ×3 (06:15→22:16)
[2022-02-03] MEDS: INSULIN (LEVEMIR) 100 UNITS/ML UNITS SQ SCH ×2 (07:19→22:47)
[2022-02-03] MEDS: INSULIN SLIDING SCALE (NOVOLOG) 1 VIAL SQ SCH ×4 (07:20→22:48)
[2022-02-03] MEDS ORDERED: REMDESIVIR 100 MG in SODIUM CHLORIDE 250 ML IVPB SCH (10:00)
[2022-02-03] MEDS ORDERED: ALBUTEROL SO4 2.5/IPRATROPIUM 0.5 INH SOL 3 ML VIAL.NEB. NEB ONE ×3 (10:04→21:01)
[2022-02-03] MEDS ORDERED: FUROSEMIDE 40 MG/4 ML INJECTABLE VIAL IVPUSH ONE ×2 (10:07→21:01)
[2022-02-03] MEDS ORDERED: NITROGLYCERIN SUBLINGUAL 1/150 0.4 MG TAB SL ONE (10:19)
[2022-02-03] MEDS ORDERED: methylPREDNISolone NA SUCC 40 MG/1 ML VIAL IVPUSH ONE (10:20)
[2022-02-03] MEDS ORDERED: methylPREDNISolone NA SUCC 125 MG/2 ML VIAL ONE (10:20)
[2022-02-03] MEDS: DEXAMETHASONE SOD PHOSPHATE 10 MG/1 ML VIAL IVPUSH SCH (10:59)
[2022-02-03] MEDS: GABAPENTIN 100 MG CAPSULE PO SCH (11:54)
[2022-02-03] MEDS: SERTRALINE HCL 25 MG TABLET (FP) PO SCH (11:55)
[2022-02-03] MEDS: APIXABAN 5 MG TABLET PO SCH ×2 (11:55→22:16)
[2022-02-03] MEDS: amLODIPine BESYLATE 10 MG TABLET (FP) PO SCH (11:55)
[2022-02-03] MEDS: PANTOPRAZOLE 40 MG TABLET PO SCH (11:56)
[2022-02-03] MEDS: BUDESONIDE/FORMETEROL FUMARATE 160/4.5 mcg INHALER IH SCH (11:56)
[2022-02-03] MEDS: AZITHROMYCIN IVPB 500 MG/250 ML BAG IVPB SCH (14:25)
[2022-02-03] MEDS ORDERED: MELATONIN 5 MG TABLETS PO PRN (20:09)
[2022-02-03] MEDS ORDERED: ALBUTEROL SO4 HFA INHALER IH PRN (20:09)
[2022-02-03] MEDS ORDERED: BENZOCAINE/MENTH/CETYLPYRD CL 1 EACH LOZENGE MM PRN (20:09)
[2022-02-03] MEDS ORDERED: TRIMETHOBENZAMIDE HCL 200MG/2ML INJ IM PRN (20:09)
[2022-02-03] MEDS ORDERED: ALPRAZolam 0.25 MG TABLET PO PRN (21:01)
[2022-02-03] MEDS: GABAPENTIN 300 MG CAPSULE PO SCH (22:14)
[2022-02-03] MEDS: ATORVASTATIN CA 20 MG TABLET (FP) PO SCH (22:15)
[2022-02-04] MEDS: POLYETHYLENE GLYCOL (HEALTHYLAX) 3350 17 GM PACKET PO SCH ×3 (05:10→22:59)
[2022-02-04] MEDS: BUDESONIDE/FORMETEROL FUMARATE 160/4.5 mcg INHALER IH SCH ×2 (07:00→11:55)
[2022-02-04] MEDS: INSULIN (LEVEMIR) 100 UNITS/ML UNITS SQ SCH ×2 (07:00→22:58)
[2022-02-04] MEDS: INSULIN SLIDING SCALE (NOVOLOG) 1 VIAL SQ SCH ×4 (07:02→22:57)
[2022-02-04] MEDS ORDERED: INSULIN (LEVEMIR) 100 UNITS/ML UNITS SQ SCH (09:02)
[2022-02-04] MEDS ORDERED: amLODIPine BESYLATE 10 MG TABLET (FP) PO SCH (10:00)
[2022-02-04] MEDS: AZITHROMYCIN IVPB 500 MG/250 ML BAG IVPB SCH (10:02)
[2022-02-04] MEDS: PANTOPRAZOLE 40 MG TABLET PO SCH (10:05)
[2022-02-04] MEDS: SERTRALINE HCL 25 MG TABLET (FP) PO SCH (10:05)
[2022-02-04] MEDS: APIXABAN 5 MG TABLET PO SCH ×2 (10:05→22:17)
[2022-02-04] MEDS: GABAPENTIN 100 MG CAPSULE PO SCH ×2 (10:05→16:10)
[2022-02-04] MEDS: DEXAMETHASONE SOD PHOSPHATE 10 MG/1 ML VIAL IVPUSH SCH (10:06)
[2022-02-04] MEDS: NYSTATIN POWDER 100,000 UNITS/GM - 15 GM TOPICAL POWDER TP SCH ×2 (10:06→22:17)
[2022-02-04] MEDS: REMDESIVIR 100 MG in SODIUM CHLORIDE 250 ML IVPB SCH (11:55)
[2022-02-04] MEDS: LACTOBACILLUS ACIDOPHILUS 1 TABLET PO SCH (12:26)
[2022-02-04] MEDS: BENZOCAINE/MENTHOL 1 EACH LOZENGE MM PRN (16:08)
[2022-02-04] MEDS: ACETAMINOPHEN 325 MG TABLET (FP) PO PRN (16:12)
[2022-02-04] MEDS: guaiFENesin 200 MG/10 ML 10 ML UNIT-DOSE CUPS PO PRN (16:13)
[2022-02-04 18:17] LABS: CHLORIDE 97 mmol/L (98-107); SODIUM 132 mmol/L (136-145)
[2022-02-04 18:19] LABS: CALCIUM 9.1 mg/dL (8.5-10.1)
[2022-02-04 18:20] LABS: ANION GAP 9 MMOL/L (8-16); BLOOD UREA NITROGEN 38.1 mg/dL (7-18); CO2 26 mmol/L (21-32)
[2022-02-04 18:23] LABS: CREATININE 1.5 mg/dL (0.55-1.3)
[2022-02-04 18:43] LABS: GLUCOSE,RANDOM 490 mg/dL (74-106)
[2022-02-04] MEDS: GABAPENTIN 300 MG CAPSULE PO SCH (22:16)
[2022-02-04] MEDS: ALPRAZolam 0.25 MG TABLET PO PRN (22:16)
[2022-02-04] MEDS: ATORVASTATIN CA 20 MG TABLET (FP) PO SCH (22:16)
[2022-02-05] MEDS: BUDESONIDE/FORMETEROL FUMARATE 160/4.5 mcg INHALER IH SCH ×3 (06:48→21:19)
[2022-02-05] MEDS: POLYETHYLENE GLYCOL (HEALTHYLAX) 3350 17 GM PACKET PO SCH ×3 (06:49→21:15)
[2022-02-05] MEDS: INSULIN SLIDING SCALE (NOVOLOG) 1 VIAL SQ SCH ×4 (06:50→21:15)
[2022-02-05] MEDS: INSULIN (LEVEMIR) 100 UNITS/ML UNITS SQ SCH ×2 (06:50→21:15)
[2022-02-05 08:32] LABS: CALCIUM 9.4 mg/dL (8.5-10.1)
[2022-02-05 08:36] LABS: CREATININE 1.1 mg/dL (0.55-1.3)
[2022-02-05 08:37] LABS: BLOOD UREA NITROGEN 32.9 mg/dL (7-18)
[2022-02-05] MEDS: SERTRALINE HCL 25 MG TABLET (FP) PO SCH (10:56)
[2022-02-05] MEDS: APIXABAN 5 MG TABLET PO SCH ×2 (10:57→21:15)
[2022-02-05] MEDS: GABAPENTIN 100 MG CAPSULE PO SCH ×2 (10:57→17:03)
[2022-02-05] MEDS: LACTOBACILLUS ACIDOPHILUS 1 TABLET PO SCH (10:57)
[2022-02-05] MEDS: DEXAMETHASONE SOD PHOSPHATE 10 MG/1 ML VIAL IVPUSH SCH (10:57)
[2022-02-05] MEDS: PANTOPRAZOLE 40 MG TABLET PO SCH (10:57)
[2022-02-05] MEDS: REMDESIVIR 100 MG in SODIUM CHLORIDE 250 ML IVPB SCH (10:58)
[2022-02-05] MEDS: NYSTATIN POWDER 100,000 UNITS/GM - 15 GM TOPICAL POWDER TP SCH ×2 (10:58→21:21)
[2022-02-05] MEDS: AZITHROMYCIN IVPB 500 MG/250 ML BAG IVPB SCH (10:59)
[2022-02-05] MEDS: DOCUSATE SODIUM 100 MG CAPSULE (FP) PO SCH ×2 (13:31→21:14)
[2022-02-05] MEDS: ACETAMINOPHEN 325 MG TABLET (FP) PO PRN (17:03)
[2022-02-05] MEDS: BENZOCAINE/MENTHOL 1 EACH LOZENGE MM PRN (18:32)
[2022-02-05] MEDS: guaiFENesin 200 MG/10 ML 10 ML UNIT-DOSE CUPS PO PRN (18:32)
[2022-02-05] MEDS: GABAPENTIN 300 MG CAPSULE PO SCH (21:14)
[2022-02-05] MEDS: ATORVASTATIN CA 20 MG TABLET (FP) PO SCH (21:15)
[2022-02-05] MEDS: SENNOSIDES 8.8 MG/5 ML SYRUP PO SCH (21:16)
[2022-02-06] MEDS: DOCUSATE SODIUM 100 MG CAPSULE (FP) PO SCH ×3 (06:28→22:28)
[2022-02-06] MEDS: POLYETHYLENE GLYCOL (HEALTHYLAX) 3350 17 GM PACKET PO SCH ×3 (06:28→22:32)
[2022-02-06] MEDS: INSULIN SLIDING SCALE (NOVOLOG) 1 VIAL SQ SCH ×4 (06:29→23:18)
[2022-02-06] MEDS: INSULIN (LEVEMIR) 100 UNITS/ML UNITS SQ SCH ×2 (06:29→23:17)
[2022-02-06] MEDS: PANTOPRAZOLE 40 MG TABLET PO SCH (11:00)
[2022-02-06] MEDS: LACTOBACILLUS ACIDOPHILUS 1 TABLET PO SCH (11:00)
[2022-02-06] MEDS: DEXAMETHASONE SOD PHOSPHATE 10 MG/1 ML VIAL IVPUSH SCH (11:00)
[2022-02-06] MEDS: NYSTATIN POWDER 100,000 UNITS/GM - 15 GM TOPICAL POWDER TP SCH ×2 (11:00→22:23)
[2022-02-06] MEDS: APIXABAN 5 MG TABLET PO SCH ×2 (11:00→22:21)
[2022-02-06] MEDS: GABAPENTIN 100 MG CAPSULE PO SCH ×2 (11:00→17:25)
[2022-02-06] MEDS: BUDESONIDE/FORMETEROL FUMARATE 160/4.5 mcg INHALER IH SCH (11:00)
[2022-02-06] MEDS: SERTRALINE HCL 25 MG TABLET (FP) PO SCH (11:01)
[2022-02-06] MEDS: AZITHROMYCIN IVPB 500 MG/250 ML BAG IVPB SCH (11:01)
[2022-02-06] MEDS: ALPRAZolam 0.25 MG TABLET PO PRN ×2 (12:55→22:22)
[2022-02-06] MEDS: NYSTATIN 500,000 UNITS/5 ML SUSPENSION PO SCH (17:33)
[2022-02-06] MEDS: BENZOCAINE/MENTHOL 1 EACH LOZENGE MM PRN (17:50)
[2022-02-06] MEDS: ACETAMINOPHEN 325 MG TABLET (FP) PO PRN (22:20)
[2022-02-06] MEDS: ATORVASTATIN CA 20 MG TABLET (FP) PO SCH (22:22)
[2022-02-06] MEDS: GABAPENTIN 300 MG CAPSULE PO SCH (22:23)
[2022-02-06] MEDS: SENNOSIDES 8.8 MG/5 ML SYRUP PO SCH (23:19)
[2022-02-07] MEDS: BUDESONIDE/FORMETEROL FUMARATE 160/4.5 mcg INHALER IH SCH ×2 (06:29→09:55)
[2022-02-07] MEDS: NYSTATIN 500,000 UNITS/5 ML SUSPENSION PO SCH ×3 (06:30→12:10)
[2022-02-07] MEDS: DOCUSATE SODIUM 100 MG CAPSULE (FP) PO SCH ×2 (06:33→13:38)
[2022-02-07] MEDS: POLYETHYLENE GLYCOL (HEALTHYLAX) 3350 17 GM PACKET PO SCH ×2 (06:33→13:39)
[2022-02-07] MEDS: INSULIN (LEVEMIR) 100 UNITS/ML UNITS SQ SCH (06:33)
[2022-02-07] MEDS: INSULIN SLIDING SCALE (NOVOLOG) 1 VIAL SQ SCH ×2 (06:46→12:10)
[2022-02-07] MEDS ORDERED: DEXAMETHASONE 4 MG TABLET (FP) PO SCH (08:00)
[2022-02-07] MEDS: APIXABAN 5 MG TABLET PO SCH (09:54)
[2022-02-07] MEDS: PANTOPRAZOLE 40 MG TABLET PO SCH (09:54)
[2022-02-07] MEDS: GABAPENTIN 100 MG CAPSULE PO SCH (09:54)
[2022-02-07] MEDS: LACTOBACILLUS ACIDOPHILUS 1 TABLET PO SCH (09:54)
[2022-02-07] MEDS: SERTRALINE HCL 25 MG TABLET (FP) PO SCH (09:55)
[2022-02-07] MEDS: NYSTATIN POWDER 100,000 UNITS/GM - 15 GM TOPICAL POWDER TP SCH (09:55)
[2022-02-07] MEDS: AZITHROMYCIN IVPB 500 MG/250 ML BAG IVPB SCH (09:56)
[2022-02-07] MEDS ORDERED: ERGOCALCIFEROL (VIT D2) 50,000 UNIT (1.25 MG) CAPSULE PO SCH ×2 (10:00)
[2022-02-07] MEDS: guaiFENesin 200 MG/10 ML 10 ML UNIT-DOSE CUPS PO PRN (10:30)
[2022-02-07] MEDS ORDERED: INSULIN (LEVEMIR) 100 UNITS/ML UNITS SQ SCH (12:27)
[2022-02-07 15:05] VITALS: BP 136/66; PULSE 88; RESP 18; TEMP 98.6
== END 2022-02-07 16:52 | DRG 177 ==
LOC: JER 11:57 → JERBED 16:35 → J7W 02-02 02:31 → J4W 02-03 13:50
PROVIDERS: ADMIT Internal Medicine; ATTEND Internal Medicine
PROC: XW033E5 Introduction of Remdesivir Anti-infective into Peripheral Vein, Percutaneous Approach, New Technology Group 5 (ICD-10-PCS; principal; 2022-02-01)
DX: U07.1 COVID-19 (principal); J96.21 Acute and chronic respiratory failure with hypoxia; J96.22 Acute and chronic respiratory failure with hypercapnia; J44.1 Chronic obstructive pulmonary disease with (acute) exacerbation; E11.9 Type 2 diabetes mellitus without complications; E78.5 Hyperlipidemia, unspecified; I11.0 Hypertensive heart disease with heart failure; I50.9 Heart failure, unspecified; E66.9 Obesity, unspecified; Z68.31 Body mass index [BMI] 31.0-31.9, adult; I48.0 Paroxysmal atrial fibrillation
CPT/HCPCS: 0241U-QW; 36415; 36600; 71045-TC-FY; 80048; 80053; 81003; 82550; 82553; 82728; 82803; 82962; 83605; 83615; 83735; 83880; 84100; 84484; 85025; 85379; 85610; 85730; 86140; 86850; 86900; 86901; 87040; 87077; 87086; 87186; 93005; 93010; 94640; 94660; 99285-25; C9399; J1100

== ENCOUNTER 2022-06-13 13:58 | Inpatient (IN) | payer OTHER ==
[2022-06-13] MEDS ORDERED: ACETAMINOPHEN 1000 MG/100 ML BAG IVPB ONE (15:22)
[2022-06-13] MEDS ORDERED: METOCLOPRAMIDE HCL INJECTION 10 MG/2 ML VIAL IVPB ONE (15:22)
[2022-06-13] MEDS ORDERED: METOCLOPRAMIDE HCL INJECTION 10 MG/2 ML VIAL ONE (15:25)
[2022-06-13] MEDS ORDERED: ACETAMINOPHEN INJECTION 100 ML IVPB ONE (15:49)
[2022-06-13 16:01] LABS: BASO % 0.4 % (0-2.0); EOS % 0.1 % (0-4.5); HEMATOCRIT 34.3 % (32.4-45.2); HEMOGLOBIN 10.9 GM/dL (10.7-15.3); MCH 26.6 pg (25.7-33.7); MCHC 31.8 g/dl (32.0-36.0); MEAN CELL VOLUME 83.8 fl (80-96); MEAN PLT VOLUME 8.6 fl (7.5-11.1); MONO % 6.4 % (3.8-10.2); NEUT % 87.1 % (42.8-82.8); PLATELET COUNT 281 10^3/uL (134-434); RBC 4.09 M/mm3 (3.60-5.2); RDW 15.1 % (11.6-15.6); WHITE BLOOD COUNT 26.9 K/mm3 (4.0-10.0)
[2022-06-13 16:09] LABS: VENOUS BASE EXCESS 0.7 mmol/L (-2-2); VENOUS O2 SATURATION 75.3 % (70-80); VENOUS PCO2 50.8 mmHg (38-52); VENOUS PH 7.349 (7.310-7.410)
[2022-06-13 16:20] LABS: CHLORIDE 95 mmol/L (98-107); POTASSIUM 3.7 mmol/L (3.5-5.1); SODIUM 133 mmol/L (136-145)
[2022-06-13 16:24] LABS: ALBUMIN 2.9 g/dl (3.4-5.0); ANION GAP 6 MMOL/L (8-16); BLOOD UREA NITROGEN 21.6 mg/dL (7-18); CALCIUM 9.3 mg/dL (8.5-10.1); CO2 32 mmol/L (21-32); LIPASE 39 U/L (73-393); MAGNESIUM 1.8 mg/dL (1.8-2.4)
[2022-06-13 16:27] LABS: CREATININE 1.9 mg/dL (0.55-1.3); PHOSPHOROUS 2.8 mg/dL (2.5-4.9); SGOT/AST 12 U/L (15-37); SGPT/ALT 15 U/L (13-61)
[2022-06-13 16:29] LABS: TOT PROT 7.4 g/dl (6.4-8.2)
[2022-06-13 16:30] LABS: ALK PHOS 107 U/L (45-117)
[2022-06-13 16:32] LABS: ANISOCYTOSIS 2+; MACROCYTOSIS 0; N-TERMINAL BNP 483.1 pg/ml (5-125)
[2022-06-13 16:41] LABS: GLUCOSE,RANDOM 422 mg/dL (74-106)
[2022-06-13] MEDS ORDERED: SODIUM CHLORIDE 0.9% 500 ML INFUS.BAG IV ONE ×2 (16:45→20:35)
[2022-06-13 17:01] LABS: LACTIC ACID 2.4 mmol/L (0.4-2.0)
[2022-06-13] MEDS ORDERED: PIPERACILLIN/TAZOB 3.375 GM 3.375 GM in DEXTROSE 5%-WATER - 50 ML IVPB ONE (18:50)
[2022-06-13] MEDS ORDERED: PIPERACILLIN/TAZOB 3.375 GM 3.375 GM/50 ML BAG IVPB ONE (19:02)
[2022-06-13 19:24] LABS: EPI CELLS 10 /uL (0-25.1); HYALINE CASTS 20 /uL (0-3.1); URINE APPEARANCE TURBID; URINE BILIRUBIN 1+ (NEGATIVE); URINE COLOR RED; URINE GLUCOSE (UA) TRACE (NEGATIVE); URINE KETONE NEGATIVE (NEGATIVE); URINE LEUK ESTERASE 3+ (NEGATIVE); URINE NITRITE POSITIVE (NEGATIVE); URINE PROTEIN 3+ (NEGATIVE); URINE WBC 28164 /uL (0-25.8)
[2022-06-13] MEDS ORDERED: VANCOMYCIN 1 GM in D5W (PRE-DOCKED) 1,000 MG/250 ML (RESTRICTED TO ID ONLY IVPB ONE (19:26)
[2022-06-13] MEDS ORDERED: VANCOMYCIN/WATER FOR INJ (PEG) 1,000 MG/200 ML BAG IVPB ONE (19:33)
[2022-06-13 21:02] LABS: URINE BACTERIA 5078.8 /uL (0-1359); URINE RBC 3681.1 /uL (0-23.9)
[2022-06-14] MEDS ORDERED: guaiFENesin 200 MG/10 ML 10 ML UNIT-DOSE CUPS PO ONE (03:59)
[2022-06-14] MEDS: ALBUTEROL SO4 0.083% IH SOL 2.5 MG/3 ML VIAL.NEB. NEB PRN ×2 (06:12→16:59)
[2022-06-14] MEDS ORDERED: ACETAMINOPHEN 1000 MG/100 ML BAG IVPB PRN (06:23)
[2022-06-14] MEDS ORDERED: PIPERACILLIN/TAZOB 2.25 GM 2.25 GM in DEXTROSE 5%-WATER - 50 ML IVPB SCH (10:00)
[2022-06-14] MEDS ORDERED: ALBUTEROL SO4 0.083% IH SOL 2.5 MG/3 ML VIAL.NEB. NEB PRN (11:03)
[2022-06-14] MEDS ORDERED: POLYETHYLENE GLYCOL (HEALTHYLAX) 3350 17 GM PACKET PO PRN (11:04)
[2022-06-14] MEDS: TIOTROPIUM BROMIDE 2.5 MCG (SPIRIVA) RESPIMAT INHALER IH SCH ×2 (13:00→13:06)
[2022-06-14] MEDS: DEXTROSE 5%-0.45% SALINE 1,000 ML IV SCH (13:47)
[2022-06-14] MEDS: INSULIN SLIDING SCALE (NOVOLOG) 1 VIAL SQ SCH ×2 (17:18→21:35)
[2022-06-14] MEDS ORDERED: INSULIN (NOVOLOG) ASPART 100 UNITS/ML 10ML VIAL ONE (17:18)
[2022-06-14] MEDS: PIPERACILLIN/TAZOB 3.375 GM 3.375 GM in DEXTROSE 5%-WATER - 50 ML IVPB SCH (18:54)
[2022-06-14 20:07] LABS: BASO % 0.2 % (0-2.0); HEMOGLOBIN 9.4 GM/dL (10.7-15.3); LYMPH % 9.7 % (8-40); MCH 27.2 pg (25.7-33.7); MCHC 32.5 g/dl (32.0-36.0); MEAN CELL VOLUME 83.6 fl (80-96); MONO % 5.6 % (3.8-10.2); NEUT % 83.5 % (42.8-82.8); RBC 3.47 M/mm3 (3.60-5.2); WHITE BLOOD COUNT 13.2 K/mm3 (4.0-10.0)
[2022-06-14 20:27] LABS: POTASSIUM 3.1 mmol/L (3.5-5.1)
[2022-06-14 20:29] LABS: CALCIUM 8.5 mg/dL (8.5-10.1)
[2022-06-14 20:30] LABS: ALBUMIN 2.5 g/dl (3.4-5.0)
[2022-06-14 20:33] LABS: CREATININE 1.3 mg/dL (0.55-1.3)
[2022-06-14 20:35] LABS: BILIRUBIN,TOTAL 0.8 mg/dL (0.2-1); TOT PROT 6.4 g/dl (6.4-8.2)
[2022-06-14 21:02] LABS: MEAN PLT VOLUME 8.6 fl (7.5-11.1); PLATELET COUNT 224 10^3/uL (134-434)
[2022-06-14] MEDS: ATORVASTATIN CA 20 MG TABLET (FP) PO SCH (21:35)
[2022-06-14] MEDS: GABAPENTIN 100 MG CAPSULE PO SCH (21:35)
[2022-06-14] MEDS: GABAPENTIN 300 MG CAPSULE PO SCH (21:35)
[2022-06-14] MEDS: MELATONIN 1 MG TABLET PO SCH (22:00)
[2022-06-15] MEDS ORDERED: PIPERACILLIN/TAZOBACTAM 3.375 GM VIAL IVPB ONE (02:04)
[2022-06-15] MEDS: PIPERACILLIN/TAZOB 3.375 GM 3.375 GM in DEXTROSE 5%-WATER - 50 ML IVPB SCH ×2 (02:08→11:06)
[2022-06-15] MEDS: DEXTROSE 5%-0.45% SALINE 1,000 ML IV SCH ×2 (05:53→10:30)
[2022-06-15] MEDS: ACETAMINOPHEN 325 MG TABLET (FP) PO PRN ×2 (06:00→20:32)
[2022-06-15] MEDS: INSULIN SLIDING SCALE (NOVOLOG) 1 VIAL SQ SCH ×4 (06:07→22:19)
[2022-06-15] MEDS ORDERED: IOHEXOL 300 MG/ML INFUS..BTL IV ONE ×2 (07:45→08:23)
[2022-06-15] MEDS ORDERED: PROPOFOL 20 ML ONE (08:19)
[2022-06-15] MEDS ORDERED: MIDAZOLAM HCL 2 MG/2 ML SINGLE DOSE VIAL ONE (08:19)
[2022-06-15] MEDS ORDERED: KETAMINE HCL 500 MG/10 ML VIAL ONE (08:20)
[2022-06-15] MEDS ORDERED: ONDANSETRON 4 MG/2 ML VIAL ONE (08:32)
[2022-06-15] MEDS ORDERED: ONDANSETRON 4 MG/2 ML VIAL IVPUSH PRN (09:06)
[2022-06-15] MEDS ORDERED: SODIUM CHLORIDE 1,000 ML IV SCH (09:15)
[2022-06-15] MEDS ORDERED: PATIENT'S OWN MEDICATION (NON-FORMULARY) (Umeclidinium Bromide [Incruse Ellipta] 62.5 MCG IH SCH (10:00)
[2022-06-15] MEDS ORDERED: ENOXAPARIN NA (PORCINE) 40 MG/0.4 ML DISP.SYRIN SQ SCH (10:00)
[2022-06-15] MEDS: GABAPENTIN 100 MG CAPSULE PO SCH ×2 (11:00→22:11)
[2022-06-15] MEDS: amLODIPine BESYLATE 10 MG TABLET (FP) PO SCH (11:00)
[2022-06-15] MEDS: SERTRALINE HCL 25 MG TABLET (FP) PO SCH (11:05)
[2022-06-15] MEDS: TIOTROPIUM BROMIDE 2.5 MCG (SPIRIVA) RESPIMAT INHALER IH SCH (11:07)
[2022-06-15 13:01] LABS: BASO % 0.8 % (0-2.0); EOS % 1.8 % (0-4.5); HEMATOCRIT 28.7 % (32.4-45.2); HEMOGLOBIN 9.3 GM/dL (10.7-15.3); LYMPH % 18.5 % (8-40); MCHC 32.3 g/dl (32.0-36.0); MEAN CELL VOLUME 83.5 fl (80-96); MEAN PLT VOLUME 8.6 fl (7.5-11.1); MONO % 6.4 % (3.8-10.2); NEUT % 72.5 % (42.8-82.8); PLATELET COUNT 233 10^3/uL (134-434); RBC 3.44 M/mm3 (3.60-5.2); RDW 15.1 % (11.6-15.6); WHITE BLOOD COUNT 9.5 K/mm3 (4.0-10.0)
[2022-06-15 13:25] LABS: POTASSIUM 3.4 mmol/L (3.5-5.1)
[2022-06-15 13:29] LABS: ALBUMIN 2.4 g/dl (3.4-5.0)
[2022-06-15 13:34] LABS: BILIRUBIN,TOTAL 0.9 mg/dL (0.2-1); TOT PROT 6.5 g/dl (6.4-8.2)
[2022-06-15] MEDS: CEFTRIAXONE 1 GM in DEXTROSE 5%-WATER - 50 ML IVPB SCH (16:14)
[2022-06-15] MEDS ORDERED: INSULIN (NOVOLOG) ASPART 100 UNITS/ML 10ML VIAL ONE ×2 (17:08→22:04)
[2022-06-15] MEDS: ATORVASTATIN CA 20 MG TABLET (FP) PO SCH (22:11)
[2022-06-15] MEDS: MELATONIN 1 MG TABLET PO SCH (22:11)
[2022-06-15] MEDS: GABAPENTIN 300 MG CAPSULE PO SCH (22:12)
[2022-06-15] MEDS: ALPRAZolam 0.25 MG TABLET PO PRN (22:12)
[2022-06-16] MEDS: ACETAMINOPHEN 325 MG TABLET (FP) PO PRN ×3 (04:26→17:38)
[2022-06-16] MEDS: INSULIN (LEVEMIR) 100 UNITS/ML UNITS SQ SCH ×2 (06:32→21:30)
[2022-06-16] MEDS: INSULIN SLIDING SCALE (NOVOLOG) 1 VIAL SQ SCH ×4 (06:33→21:32)
[2022-06-16] MEDS: amLODIPine BESYLATE 10 MG TABLET (FP) PO SCH (10:07)
[2022-06-16] MEDS: GABAPENTIN 100 MG CAPSULE PO SCH ×2 (10:07→21:39)
[2022-06-16] MEDS: TIOTROPIUM BROMIDE 2.5 MCG (SPIRIVA) RESPIMAT INHALER IH SCH (10:08)
[2022-06-16] MEDS: SERTRALINE HCL 25 MG TABLET (FP) PO SCH (11:04)
[2022-06-16] MEDS: APIXABAN 5 MG TABLET PO SCH ×2 (11:05→21:39)
[2022-06-16] MEDS: CEFTRIAXONE 1 GM in DEXTROSE 5%-WATER - 50 ML IVPB SCH (11:06)
[2022-06-16] MEDS: CLOTRIMAZOLE 1% CREAM TP SCH ×2 (15:39→21:40)
[2022-06-16] MEDS: ALBUTEROL SO4 0.083% IH SOL 2.5 MG/3 ML VIAL.NEB. NEB PRN (17:36)
[2022-06-16] MEDS: GABAPENTIN 300 MG CAPSULE PO SCH (21:39)
[2022-06-16] MEDS: MELATONIN 1 MG TABLET PO SCH (21:39)
[2022-06-16] MEDS: ATORVASTATIN CA 20 MG TABLET (FP) PO SCH (21:39)
[2022-06-16] MEDS ORDERED: oxyCODONE HCL 5 MG TABLET PO ONE (23:59)
[2022-06-16] MEDS ORDERED: ACETAMINOPHEN 1000 MG/100 ML BAG IVPB ONE (23:59)
[2022-06-17] MEDS ORDERED: TAMSULOSIN HCL 0.4 MG CAP PO ONE
[2022-06-17] MEDS: INSULIN SLIDING SCALE (NOVOLOG) 1 VIAL SQ SCH ×4 (06:42→21:30)
[2022-06-17] MEDS: ALPRAZolam 0.25 MG TABLET PO PRN ×2 (07:01→21:26)
[2022-06-17] MEDS: INSULIN (LEVEMIR) 100 UNITS/ML UNITS SQ SCH ×2 (07:04→21:29)
[2022-06-17] MEDS: traMADol HCL 50 MG TABLET PO PRN ×3 (09:44→21:26)
[2022-06-17] MEDS: GABAPENTIN 100 MG CAPSULE PO SCH ×2 (09:44→21:28)
[2022-06-17] MEDS: amLODIPine BESYLATE 10 MG TABLET (FP) PO SCH (09:44)
[2022-06-17] MEDS: SERTRALINE HCL 25 MG TABLET (FP) PO SCH (09:44)
[2022-06-17] MEDS: CEFTRIAXONE 1 GM in DEXTROSE 5%-WATER - 50 ML IVPB SCH (09:45)
[2022-06-17] MEDS: APIXABAN 5 MG TABLET PO SCH (09:45)
[2022-06-17 10:30] LABS: BASO % 0.6 % (0-2.0); EOS % 2.1 % (0-4.5); HEMOGLOBIN 9.5 GM/dL (10.7-15.3); LYMPH % 14.7 % (8-40); MCH 27.6 pg (25.7-33.7); MCHC 32.8 g/dl (32.0-36.0); MEAN CELL VOLUME 84.1 fl (80-96); MEAN PLT VOLUME 8.4 fl (7.5-11.1); MONO % 10.1 % (3.8-10.2); NEUT % 72.5 % (42.8-82.8); PLATELET COUNT 255 10^3/uL (134-434); RBC 3.45 M/mm3 (3.60-5.2); RDW 14.8 % (11.6-15.6)
[2022-06-17 10:32] LABS: POTASSIUM 3.5 mmol/L (3.5-5.1)
[2022-06-17 10:37] LABS: CALCIUM 9.2 mg/dL (8.5-10.1)
[2022-06-17 10:38] LABS: ALBUMIN 2.6 g/dl (3.4-5.0); BLOOD UREA NITROGEN 10.4 mg/dL (7-18)
[2022-06-17 10:41] LABS: CREATININE 0.9 mg/dL (0.55-1.3)
[2022-06-17 10:42] LABS: BILIRUBIN,TOTAL 0.6 mg/dL (0.2-1); TOT PROT 6.5 g/dl (6.4-8.2)
[2022-06-17] MEDS: CLOTRIMAZOLE 1% CREAM TP SCH ×2 (10:53→21:28)
[2022-06-17] MEDS: TIOTROPIUM BROMIDE 2.5 MCG (SPIRIVA) RESPIMAT INHALER IH SCH (11:46)
[2022-06-17] MEDS ORDERED: INSULIN (NOVOLOG) ASPART 100 UNITS/ML 10ML VIAL ONE ×2 (11:49→20:30)
[2022-06-17] MEDS: GABAPENTIN 300 MG CAPSULE PO SCH (21:27)
[2022-06-17] MEDS: MELATONIN 1 MG TABLET PO SCH (21:28)
[2022-06-17] MEDS: ATORVASTATIN CA 20 MG TABLET (FP) PO SCH (21:28)
[2022-06-18] MEDS: INSULIN SLIDING SCALE (NOVOLOG) 1 VIAL SQ SCH ×4 (06:13→21:32)
[2022-06-18] MEDS: INSULIN (LEVEMIR) 100 UNITS/ML UNITS SQ SCH ×3 (06:15→21:32)
[2022-06-18] MEDS ORDERED: INSULIN (NOVOLOG) ASPART 100 UNITS/ML 10ML VIAL ONE ×2 (06:33→21:25)
[2022-06-18] MEDS: amLODIPine BESYLATE 10 MG TABLET (FP) PO SCH (10:23)
[2022-06-18] MEDS: CEFTRIAXONE 1 GM in DEXTROSE 5%-WATER - 50 ML IVPB SCH (10:23)
[2022-06-18] MEDS: GABAPENTIN 100 MG CAPSULE PO SCH ×2 (10:23→21:35)
[2022-06-18] MEDS: SERTRALINE HCL 25 MG TABLET (FP) PO SCH (10:23)
[2022-06-18] MEDS: TIOTROPIUM BROMIDE 2.5 MCG (SPIRIVA) RESPIMAT INHALER IH SCH (10:23)
[2022-06-18] MEDS: CLOTRIMAZOLE 1% CREAM TP SCH ×2 (10:27→21:37)
[2022-06-18] MEDS: traMADol HCL 50 MG TABLET PO PRN ×2 (12:41→21:34)
[2022-06-18] MEDS: GABAPENTIN 300 MG CAPSULE PO SCH (21:35)
[2022-06-18] MEDS: MIRTAZAPINE 15 MG TABLET (FP) PO SCH (21:35)
[2022-06-18] MEDS: MELATONIN 1 MG TABLET PO SCH (21:35)
[2022-06-18] MEDS: ATORVASTATIN CA 20 MG TABLET (FP) PO SCH (21:36)
[2022-06-19] MEDS: ALBUTEROL SO4 0.083% IH SOL 2.5 MG/3 ML VIAL.NEB. NEB PRN (03:31)
[2022-06-19] MEDS: INSULIN SLIDING SCALE (NOVOLOG) 1 VIAL SQ SCH ×4 (07:04→21:50)
[2022-06-19] MEDS: INSULIN (LEVEMIR) 100 UNITS/ML UNITS SQ SCH ×2 (07:04→21:50)
[2022-06-19] MEDS: amLODIPine BESYLATE 10 MG TABLET (FP) PO SCH (09:41)
[2022-06-19] MEDS: CEFTRIAXONE 1 GM in DEXTROSE 5%-WATER - 50 ML IVPB SCH (09:41)
[2022-06-19] MEDS: ACETAMINOPHEN 325 MG TABLET (FP) PO PRN ×2 (09:41→23:30)
[2022-06-19] MEDS: SERTRALINE HCL 25 MG TABLET (FP) PO SCH (09:41)
[2022-06-19] MEDS: GABAPENTIN 100 MG CAPSULE PO SCH ×2 (09:42→21:41)
[2022-06-19] MEDS: TIOTROPIUM BROMIDE 2.5 MCG (SPIRIVA) RESPIMAT INHALER IH SCH (09:45)
[2022-06-19] MEDS: CLOTRIMAZOLE 1% CREAM TP SCH ×2 (09:46→21:50)
[2022-06-19 10:17] LABS: BASO % 0.5 % (0-2.0); HEMATOCRIT 28.7 % (32.4-45.2); HEMOGLOBIN 9.3 GM/dL (10.7-15.3); LYMPH % 22.6 % (8-40); MCH 27.2 pg (25.7-33.7); MCHC 32.3 g/dl (32.0-36.0); MEAN PLT VOLUME 8.4 fl (7.5-11.1); MONO % 8.5 % (3.8-10.2); NEUT % 66.4 % (42.8-82.8); PLATELET COUNT 324 10^3/uL (134-434); RBC 3.42 M/mm3 (3.60-5.2); RDW 14.6 % (11.6-15.6); WHITE BLOOD COUNT 8.8 K/mm3 (4.0-10.0)
[2022-06-19 10:29] LABS: POTASSIUM 3.5 mmol/L (3.5-5.1)
[2022-06-19 10:34] LABS: ALBUMIN 2.5 g/dl (3.4-5.0); BLOOD UREA NITROGEN 8.8 mg/dL (7-18); CALCIUM 9.4 mg/dL (8.5-10.1)
[2022-06-19 10:37] LABS: CREATININE 0.8 mg/dL (0.55-1.3)
[2022-06-19 10:38] LABS: BILIRUBIN,TOTAL 0.6 mg/dL (0.2-1)
[2022-06-19 10:39] LABS: TOT PROT 6.9 g/dl (6.4-8.2)
[2022-06-19] MEDS ORDERED: INSULIN (NOVOLOG) ASPART 100 UNITS/ML 10ML VIAL ONE ×2 (11:27→16:56)
[2022-06-19] MEDS: MIRTAZAPINE 15 MG TABLET (FP) PO SCH (21:41)
[2022-06-19] MEDS: MELATONIN 1 MG TABLET PO SCH (21:42)
[2022-06-19] MEDS: ATORVASTATIN CA 20 MG TABLET (FP) PO SCH (21:42)
[2022-06-19] MEDS: GABAPENTIN 300 MG CAPSULE PO SCH (21:43)
[2022-06-19] MEDS: traMADol HCL 50 MG TABLET PO PRN (21:44)
[2022-06-20] MEDS: INSULIN SLIDING SCALE (NOVOLOG) 1 VIAL SQ SCH ×4 (06:13→21:32)
[2022-06-20] MEDS: INSULIN (LEVEMIR) 100 UNITS/ML UNITS SQ SCH ×2 (06:13→21:32)
[2022-06-20] MEDS: amLODIPine BESYLATE 10 MG TABLET (FP) PO SCH (10:00)
[2022-06-20] MEDS: CEFTRIAXONE 1 GM in DEXTROSE 5%-WATER - 50 ML IVPB SCH (10:00)
[2022-06-20] MEDS: SERTRALINE HCL 25 MG TABLET (FP) PO SCH (10:00)
[2022-06-20 10:02] LABS: BASO % 0.6 % (0-2.0); EOS % 2.7 % (0-4.5); HEMATOCRIT 29.9 % (32.4-45.2); HEMOGLOBIN 9.8 GM/dL (10.7-15.3); LYMPH % 21.5 % (8-40); MCH 27.7 pg (25.7-33.7); MCHC 32.9 g/dl (32.0-36.0); MEAN CELL VOLUME 84.3 fl (80-96); MONO % 8.5 % (3.8-10.2); NEUT % 66.7 % (42.8-82.8); PLATELET COUNT 368 10^3/uL (134-434); RBC 3.54 M/mm3 (3.60-5.2); RDW 14.8 % (11.6-15.6); WHITE BLOOD COUNT 9.3 K/mm3 (4.0-10.0)
[2022-06-20 10:16] LABS: POTASSIUM 3.5 mmol/L (3.5-5.1)
[2022-06-20 10:22] LABS: CALCIUM 9.3 mg/dL (8.5-10.1)
[2022-06-20] MEDS: GABAPENTIN 100 MG CAPSULE PO SCH ×2 (10:22→21:27)
[2022-06-20 10:23] LABS: ALBUMIN 2.6 g/dl (3.4-5.0); BLOOD UREA NITROGEN 8.8 mg/dL (7-18)
[2022-06-20 10:26] LABS: CREATININE 0.9 mg/dL (0.55-1.3)
[2022-06-20 10:27] LABS: BILIRUBIN,TOTAL 0.5 mg/dL (0.2-1); TOT PROT 7.2 g/dl (6.4-8.2)
[2022-06-20] MEDS: TIOTROPIUM BROMIDE 2.5 MCG (SPIRIVA) RESPIMAT INHALER IH SCH (11:03)
[2022-06-20] MEDS ORDERED: INSULIN (NOVOLOG) ASPART 100 UNITS/ML 10ML VIAL ONE ×3 (11:06→21:09)
[2022-06-20] MEDS: ALBUTEROL SO4 0.083% IH SOL 2.5 MG/3 ML VIAL.NEB. NEB PRN ×3 (12:05→20:12)
[2022-06-20] MEDS: ACETAMINOPHEN 325 MG TABLET (FP) PO PRN ×2 (12:27→23:30)
[2022-06-20] MEDS: CLOTRIMAZOLE 1% CREAM TP SCH ×2 (14:35→21:32)
[2022-06-20] MEDS: MELATONIN 1 MG TABLET PO SCH (21:26)
[2022-06-20] MEDS: MIRTAZAPINE 15 MG TABLET (FP) PO SCH (21:26)
[2022-06-20] MEDS: GABAPENTIN 300 MG CAPSULE PO SCH (21:27)
[2022-06-20] MEDS: ATORVASTATIN CA 20 MG TABLET (FP) PO SCH (21:28)
[2022-06-20] MEDS: traMADol HCL 50 MG TABLET PO PRN (21:30)
[2022-06-21] MEDS: INSULIN SLIDING SCALE (NOVOLOG) 1 VIAL SQ SCH ×5 (06:10→21:35)
[2022-06-21] MEDS: INSULIN (LEVEMIR) 100 UNITS/ML UNITS SQ SCH ×2 (06:10→21:34)
[2022-06-21] MEDS ORDERED: INSULIN (NOVOLOG) ASPART 100 UNITS/ML 10ML VIAL ONE ×2 (06:40→21:28)
[2022-06-21] MEDS: amLODIPine BESYLATE 10 MG TABLET (FP) PO SCH (09:57)
[2022-06-21] MEDS: GABAPENTIN 100 MG CAPSULE PO SCH ×2 (09:57→21:33)
[2022-06-21] MEDS: SERTRALINE HCL 25 MG TABLET (FP) PO SCH (09:57)
[2022-06-21] MEDS: CEFTRIAXONE 1 GM in DEXTROSE 5%-WATER - 50 ML IVPB SCH (09:58)
[2022-06-21] MEDS: TIOTROPIUM BROMIDE 2.5 MCG (SPIRIVA) RESPIMAT INHALER IH SCH (09:58)
[2022-06-21] MEDS: CLOTRIMAZOLE 1% CREAM TP SCH ×2 (09:58→21:35)
[2022-06-21] MEDS: BENZOCAINE/MENTHOL 1 EACH LOZENGE MM PRN (10:01)
[2022-06-21] MEDS: ACETAMINOPHEN 325 MG TABLET (FP) PO PRN (10:13)
[2022-06-21] MEDS ORDERED: APIXABAN 2.5 MG TABLET PO SCH (10:45)
[2022-06-21] MEDS: ALBUTEROL SO4 0.083% IH SOL 2.5 MG/3 ML VIAL.NEB. NEB PRN (17:28)
[2022-06-21] MEDS ORDERED: MAG HYDROX/AL HYDROX/SIMETH 30 ML UNIT-DOSE CUP PO PRN (19:33)
[2022-06-21] MEDS: APIXABAN 5 MG TABLET PO SCH (21:33)
[2022-06-21] MEDS: ATORVASTATIN CA 20 MG TABLET (FP) PO SCH (21:33)
[2022-06-21] MEDS: MELATONIN 1 MG TABLET PO SCH (21:33)
[2022-06-21] MEDS: GABAPENTIN 300 MG CAPSULE PO SCH (21:33)
[2022-06-21] MEDS: MIRTAZAPINE 15 MG TABLET (FP) PO SCH (21:34)
[2022-06-21] MEDS: traMADol HCL 50 MG TABLET PO PRN (22:08)
[2022-06-22] MEDS: BENZOCAINE/MENTHOL 1 EACH LOZENGE MM PRN ×2 (02:25→06:42)
[2022-06-22] MEDS: ALBUTEROL SO4 0.083% IH SOL 2.5 MG/3 ML VIAL.NEB. NEB PRN (03:57)
[2022-06-22] MEDS: INSULIN SLIDING SCALE (NOVOLOG) 1 VIAL SQ SCH ×4 (06:11→21:35)
[2022-06-22] MEDS: INSULIN (LEVEMIR) 100 UNITS/ML UNITS SQ SCH ×2 (06:11→21:35)
[2022-06-22] MEDS: amLODIPine BESYLATE 10 MG TABLET (FP) PO SCH (09:23)
[2022-06-22] MEDS: CEFTRIAXONE 1 GM in DEXTROSE 5%-WATER - 50 ML IVPB SCH (09:23)
[2022-06-22] MEDS: APIXABAN 5 MG TABLET PO SCH (09:23)
[2022-06-22] MEDS: SERTRALINE HCL 25 MG TABLET (FP) PO SCH (09:23)
[2022-06-22] MEDS: GABAPENTIN 100 MG CAPSULE PO SCH ×2 (09:23→21:33)
[2022-06-22] MEDS: CLOTRIMAZOLE 1% CREAM TP SCH ×2 (09:24→21:34)
[2022-06-22] MEDS: TIOTROPIUM BROMIDE 2.5 MCG (SPIRIVA) RESPIMAT INHALER IH SCH (09:24)
[2022-06-22] MEDS ORDERED: INSULIN (NOVOLOG) ASPART 100 UNITS/ML 10ML VIAL ONE ×2 (11:29→21:29)
[2022-06-22] MEDS: guaiFENesin 200 MG/10 ML 10 ML UNIT-DOSE CUPS PO PRN (14:40)
[2022-06-22] MEDS: traMADol HCL 50 MG TABLET PO PRN (17:41)
[2022-06-22] MEDS: MIRTAZAPINE 15 MG TABLET (FP) PO SCH (21:33)
[2022-06-22] MEDS: GABAPENTIN 300 MG CAPSULE PO SCH (21:33)
[2022-06-22] MEDS: ATORVASTATIN CA 20 MG TABLET (FP) PO SCH (21:33)
[2022-06-22] MEDS: MELATONIN 1 MG TABLET PO SCH (21:34)
[2022-06-23] MEDS: traMADol HCL 50 MG TABLET PO PRN ×3 (00:28→23:23)
[2022-06-23] MEDS: BENZOCAINE/MENTHOL 1 EACH LOZENGE MM PRN ×2 (00:29→22:13)
[2022-06-23] MEDS: INSULIN (LEVEMIR) 100 UNITS/ML UNITS SQ SCH ×2 (07:12→22:21)
[2022-06-23] MEDS: INSULIN SLIDING SCALE (NOVOLOG) 1 VIAL SQ SCH ×5 (07:13→22:22)
[2022-06-23] MEDS: GABAPENTIN 100 MG CAPSULE PO SCH ×2 (09:27→22:11)
[2022-06-23] MEDS: CLOTRIMAZOLE 1% CREAM TP SCH ×2 (09:27→22:12)
[2022-06-23] MEDS: SERTRALINE HCL 25 MG TABLET (FP) PO SCH (09:27)
[2022-06-23] MEDS: amLODIPine BESYLATE 10 MG TABLET (FP) PO SCH (09:27)
[2022-06-23] MEDS: TIOTROPIUM BROMIDE 2.5 MCG (SPIRIVA) RESPIMAT INHALER IH SCH (09:28)
[2022-06-23] MEDS ORDERED: FLUCONAZOLE 150 MG TABLET PO ONE (10:43)
[2022-06-23] MEDS ORDERED: INSULIN (NOVOLOG) ASPART 100 UNITS/ML 10ML VIAL ONE (12:17)
[2022-06-23] MEDS: ALBUTEROL SO4 0.083% IH SOL 2.5 MG/3 ML VIAL.NEB. NEB PRN (12:45)
[2022-06-23] MEDS: GABAPENTIN 300 MG CAPSULE PO SCH (22:11)
[2022-06-23] MEDS: MELATONIN 1 MG TABLET PO SCH (22:11)
[2022-06-23] MEDS: ATORVASTATIN CA 20 MG TABLET (FP) PO SCH (22:12)
[2022-06-23] MEDS: MIRTAZAPINE 15 MG TABLET (FP) PO SCH (22:12)
[2022-06-24] MEDS: BENZOCAINE/MENTHOL 1 EACH LOZENGE MM PRN ×2 (02:22→09:26)
[2022-06-24] MEDS: INSULIN (LEVEMIR) 100 UNITS/ML UNITS SQ SCH ×2 (06:52→21:32)
[2022-06-24] MEDS: INSULIN SLIDING SCALE (NOVOLOG) 1 VIAL SQ SCH ×4 (06:52→21:33)
[2022-06-24 08:57] LABS: BASO % 0.7 % (0-2.0); EOS % 2.4 % (0-4.5); HEMATOCRIT 26.9 % (32.4-45.2); HEMOGLOBIN 8.7 GM/dL (10.7-15.3); LYMPH % 25.9 % (8-40); MCH 27.6 pg (25.7-33.7); MCHC 32.5 g/dl (32.0-36.0); MEAN CELL VOLUME 84.8 fl (80-96); MEAN PLT VOLUME 8.6 fl (7.5-11.1); MONO % 5.5 % (3.8-10.2); NEUT % 65.5 % (42.8-82.8); PLATELET COUNT 426 10^3/uL (134-434); RBC 3.17 M/mm3 (3.60-5.2); RDW 15.1 % (11.6-15.6)
[2022-06-24] MEDS: CLOTRIMAZOLE 1% CREAM TP SCH ×2 (09:16→21:33)
[2022-06-24] MEDS: GABAPENTIN 100 MG CAPSULE PO SCH ×2 (09:16→21:31)
[2022-06-24] MEDS: TIOTROPIUM BROMIDE 2.5 MCG (SPIRIVA) RESPIMAT INHALER IH SCH (09:16)
[2022-06-24] MEDS: SERTRALINE HCL 25 MG TABLET (FP) PO SCH (09:16)
[2022-06-24] MEDS: amLODIPine BESYLATE 10 MG TABLET (FP) PO SCH (09:16)
[2022-06-24 09:23] LABS: POTASSIUM 4.1 mmol/L (3.5-5.1)
[2022-06-24 09:33] LABS: ALBUMIN 2.5 g/dl (3.4-5.0); BILIRUBIN,TOTAL 0.5 mg/dL (0.2-1); TOT PROT 6.8 g/dl (6.4-8.2)
[2022-06-24 09:35] LABS: BLOOD UREA NITROGEN 9.5 mg/dL (7-18)
[2022-06-24 09:36] LABS: CALCIUM 9.1 mg/dL (8.5-10.1)
[2022-06-24 09:38] LABS: CREATININE 0.9 mg/dL (0.55-1.3)
[2022-06-24] MEDS: traMADol HCL 50 MG TABLET PO PRN ×2 (09:40→21:30)
[2022-06-24] MEDS: ALBUTEROL SO4 0.083% IH SOL 2.5 MG/3 ML VIAL.NEB. NEB PRN (16:40)
[2022-06-24 19:42] VITALS: BMI 29.7
[2022-06-24] MEDS ORDERED: INSULIN (NOVOLOG) ASPART 100 UNITS/ML 10ML VIAL ONE (21:22)
[2022-06-24] MEDS: MIRTAZAPINE 15 MG TABLET (FP) PO SCH (21:31)
[2022-06-24] MEDS: GABAPENTIN 300 MG CAPSULE PO SCH (21:31)
[2022-06-24] MEDS: MELATONIN 1 MG TABLET PO SCH (21:31)
[2022-06-24] MEDS: BUDESONIDE/FORMETEROL FUMARATE 160/4.5 mcg INHALER IH SCH (21:31)
[2022-06-24] MEDS: ATORVASTATIN CA 20 MG TABLET (FP) PO SCH (21:31)
[2022-06-25] MEDS: BENZOCAINE/MENTHOL 1 EACH LOZENGE MM PRN (01:44)
[2022-06-25] MEDS: INSULIN (LEVEMIR) 100 UNITS/ML UNITS SQ SCH ×2 (06:42→21:50)
[2022-06-25] MEDS: INSULIN SLIDING SCALE (NOVOLOG) 1 VIAL SQ SCH ×4 (06:42→21:49)
[2022-06-25] MEDS: GABAPENTIN 100 MG CAPSULE PO SCH ×2 (09:24→21:40)
[2022-06-25] MEDS: amLODIPine BESYLATE 10 MG TABLET (FP) PO SCH (09:24)
[2022-06-25] MEDS: SERTRALINE HCL 25 MG TABLET (FP) PO SCH (09:24)
[2022-06-25] MEDS: CLOTRIMAZOLE 1% CREAM TP SCH ×2 (09:25→21:50)
[2022-06-25] MEDS: TIOTROPIUM BROMIDE 2.5 MCG (SPIRIVA) RESPIMAT INHALER IH SCH (09:25)
[2022-06-25] MEDS: BUDESONIDE/FORMETEROL FUMARATE 160/4.5 mcg INHALER IH SCH ×2 (09:26→21:42)
[2022-06-25 09:57] LABS: BASO % 1.2 % (0-2.0); EOS % 2.3 % (0-4.5); HEMATOCRIT 28.3 % (32.4-45.2); HEMOGLOBIN 9.2 GM/dL (10.7-15.3); LYMPH % 24.6 % (8-40); MCH 27.5 pg (25.7-33.7); MCHC 32.3 g/dl (32.0-36.0); MEAN CELL VOLUME 84.9 fl (80-96); MEAN PLT VOLUME 8.5 fl (7.5-11.1); MONO % 4.3 % (3.8-10.2); NEUT % 67.6 % (42.8-82.8); PLATELET COUNT 461 10^3/uL (134-434); RBC 3.33 M/mm3 (3.60-5.2); WHITE BLOOD COUNT 10.4 K/mm3 (4.0-10.0)
[2022-06-25] MEDS ORDERED: INSULIN (NOVOLOG) ASPART 100 UNITS/ML 10ML VIAL ONE ×2 (11:13→21:48)
[2022-06-25] MEDS: ALBUTEROL SO4 0.083% IH SOL 2.5 MG/3 ML VIAL.NEB. NEB PRN (11:35)
[2022-06-25] MEDS: traMADol HCL 50 MG TABLET PO PRN ×2 (14:01→21:41)
[2022-06-25] MEDS: ATORVASTATIN CA 20 MG TABLET (FP) PO SCH (21:41)
[2022-06-25] MEDS: MELATONIN 1 MG TABLET PO SCH (21:41)
[2022-06-25] MEDS: GABAPENTIN 300 MG CAPSULE PO SCH (21:41)
[2022-06-25] MEDS: MIRTAZAPINE 15 MG TABLET (FP) PO SCH (21:42)
[2022-06-26] MEDS: INSULIN (LEVEMIR) 100 UNITS/ML UNITS SQ SCH ×2 (06:01→22:38)
[2022-06-26] MEDS: INSULIN SLIDING SCALE (NOVOLOG) 1 VIAL SQ SCH ×4 (06:01→22:40)
[2022-06-26] MEDS ORDERED: INSULIN (LEVEMIR) 100 UNITS/ML UNITS SQ ONE ×2 (06:33→23:14)
[2022-06-26] MEDS ORDERED: INSULIN (NOVOLOG) ASPART 100 UNITS/ML 10ML VIAL ONE ×2 (06:33→16:41)
[2022-06-26] MEDS: amLODIPine BESYLATE 10 MG TABLET (FP) PO SCH (10:47)
[2022-06-26] MEDS: SERTRALINE HCL 25 MG TABLET (FP) PO SCH (10:47)
[2022-06-26] MEDS: BUDESONIDE/FORMETEROL FUMARATE 160/4.5 mcg INHALER IH SCH ×2 (10:48→22:44)
[2022-06-26] MEDS: CLOTRIMAZOLE 1% CREAM TP SCH (10:48)
[2022-06-26] MEDS: GABAPENTIN 100 MG CAPSULE PO SCH ×2 (10:48→22:38)
[2022-06-26] MEDS: guaiFENesin 200 MG/10 ML 10 ML UNIT-DOSE CUPS PO PRN (10:50)
[2022-06-26] MEDS: traMADol HCL 50 MG TABLET PO PRN ×2 (10:50→22:39)
[2022-06-26] MEDS: TIOTROPIUM BROMIDE 2.5 MCG (SPIRIVA) RESPIMAT INHALER IH SCH (10:58)
[2022-06-26] MEDS: GABAPENTIN 300 MG CAPSULE PO SCH (22:38)
[2022-06-26] MEDS: MELATONIN 1 MG TABLET PO SCH (22:39)
[2022-06-26] MEDS: ATORVASTATIN CA 20 MG TABLET (FP) PO SCH (22:39)
[2022-06-26] MEDS: MIRTAZAPINE 15 MG TABLET (FP) PO SCH (22:39)
[2022-06-26] MEDS: BENZOCAINE/MENTHOL 1 EACH LOZENGE MM PRN (22:41)
[2022-06-27] MEDS: CLOTRIMAZOLE 1% CREAM TP SCH ×3 (00:04→22:08)
[2022-06-27] MEDS ORDERED: INSULIN (NOVOLOG) ASPART 100 UNITS/ML 10ML VIAL ONE ×4 (05:55→21:45)
[2022-06-27] MEDS: INSULIN (LEVEMIR) 100 UNITS/ML UNITS SQ SCH ×2 (06:05→22:03)
[2022-06-27] MEDS: INSULIN SLIDING SCALE (NOVOLOG) 1 VIAL SQ SCH ×4 (06:06→22:02)
[2022-06-27] MEDS: GABAPENTIN 100 MG CAPSULE PO SCH ×2 (10:10→22:02)
[2022-06-27] MEDS: SERTRALINE HCL 25 MG TABLET (FP) PO SCH (10:10)
[2022-06-27] MEDS: amLODIPine BESYLATE 10 MG TABLET (FP) PO SCH (10:11)
[2022-06-27] MEDS: BUDESONIDE/FORMETEROL FUMARATE 160/4.5 mcg INHALER IH SCH ×2 (10:21→22:03)
[2022-06-27] MEDS: traMADol HCL 50 MG TABLET PO PRN (10:50)
[2022-06-27] MEDS: guaiFENesin 200 MG/10 ML 10 ML UNIT-DOSE CUPS PO PRN ×2 (11:12→22:01)
[2022-06-27] MEDS: TIOTROPIUM BROMIDE 2.5 MCG (SPIRIVA) RESPIMAT INHALER IH SCH (13:54)
[2022-06-27] MEDS: ATORVASTATIN CA 20 MG TABLET (FP) PO SCH (22:01)
[2022-06-27] MEDS: MIRTAZAPINE 15 MG TABLET (FP) PO SCH (22:01)
[2022-06-27] MEDS: MELATONIN 1 MG TABLET PO SCH (22:02)
[2022-06-27] MEDS: GABAPENTIN 300 MG CAPSULE PO SCH (22:02)
[2022-06-28] MEDS ORDERED: traMADol HCL 50 MG TABLET PO PRN (01:10)
[2022-06-28] MEDS: INSULIN SLIDING SCALE (NOVOLOG) 1 VIAL SQ SCH ×4 (06:10→21:29)
[2022-06-28] MEDS: INSULIN (LEVEMIR) 100 UNITS/ML UNITS SQ SCH ×2 (06:10→21:29)
[2022-06-28] MEDS: amLODIPine BESYLATE 10 MG TABLET (FP) PO SCH (09:07)
[2022-06-28] MEDS: SERTRALINE HCL 25 MG TABLET (FP) PO SCH (09:07)
[2022-06-28] MEDS: GABAPENTIN 100 MG CAPSULE PO SCH ×2 (09:07→21:28)
[2022-06-28] MEDS: TIOTROPIUM BROMIDE 2.5 MCG (SPIRIVA) RESPIMAT INHALER IH SCH (09:08)
[2022-06-28] MEDS: CLOTRIMAZOLE 1% CREAM TP SCH ×2 (09:08→22:00)
[2022-06-28] MEDS: BUDESONIDE/FORMETEROL FUMARATE 160/4.5 mcg INHALER IH SCH ×2 (09:08→21:30)
[2022-06-28] MEDS ORDERED: HEPARIN NA (PORCINE) 5,000 UNITS/ML 1ML VIAL ONE (11:30)
[2022-06-28] MEDS ORDERED: MIDAZOLAM HCL 2 MG/2 ML SINGLE DOSE VIAL ONE (13:20)
[2022-06-28] MEDS ORDERED: LIDOCAINE HCL 1%, 10 MG/ML (20ML VIAL) INF ONE ×2 (13:33)
[2022-06-28] MEDS ORDERED: POLYETHYLENE GLYCOL (HEALTHYLAX) 3350 17 GM PACKET PO PRN (14:08)
[2022-06-28] MEDS ORDERED: ACETAMINOPHEN 325 MG TABLET (FP) PO PRN (14:08)
[2022-06-28] MEDS ORDERED: MAG HYDROX/AL HYDROX/SIMETH 30 ML UNIT-DOSE CUP PO PRN (14:08)
[2022-06-28] MEDS ORDERED: guaiFENesin 200 MG/10 ML 10 ML UNIT-DOSE CUPS PO PRN (14:08)
[2022-06-28] MEDS ORDERED: BENZOCAINE/MENTHOL 1 EACH LOZENGE MM PRN (14:08)
[2022-06-28] MEDS: LACTATED RINGERS SOLUTION 1,000 ML IV SCH (15:39)
[2022-06-28] MEDS ORDERED: INSULIN (NOVOLOG) ASPART 100 UNITS/ML 10ML VIAL ONE (21:24)
[2022-06-28] MEDS: traMADol HCL 50 MG TABLET PO PRN (21:28)
[2022-06-28] MEDS ORDERED: ATORVASTATIN CA 20 MG TABLET (FP) PO SCH (22:00)
[2022-06-28] MEDS ORDERED: MIRTAZAPINE 15 MG TABLET (FP) PO SCH (22:00)
[2022-06-28] MEDS ORDERED: MELATONIN 1 MG TABLET PO SCH (22:00)
[2022-06-28] MEDS ORDERED: GABAPENTIN 300 MG CAPSULE PO SCH (22:00)
[2022-06-29 02:16] VITALS: RESP 18
[2022-06-29 05:31] VITALS: TEMP 98.5
[2022-06-29] MEDS: INSULIN SLIDING SCALE (NOVOLOG) 1 VIAL SQ SCH ×3 (06:27→17:08)
[2022-06-29] MEDS: INSULIN (LEVEMIR) 100 UNITS/ML UNITS SQ SCH (06:27)
[2022-06-29] MEDS ORDERED: INSULIN (LEVEMIR) 100 UNITS/ML UNITS SQ ONE (06:40)
[2022-06-29] MEDS: GABAPENTIN 100 MG CAPSULE PO SCH (09:42)
[2022-06-29] MEDS: CLOTRIMAZOLE 1% CREAM TP SCH (09:44)
[2022-06-29] MEDS: BUDESONIDE/FORMETEROL FUMARATE 160/4.5 mcg INHALER IH SCH (09:44)
[2022-06-29] MEDS: traMADol HCL 50 MG TABLET PO PRN (09:57)
[2022-06-29] MEDS ORDERED: amLODIPine BESYLATE 10 MG TABLET (FP) PO SCH (10:00)
[2022-06-29] MEDS ORDERED: SERTRALINE HCL 25 MG TABLET (FP) PO SCH (10:00)
[2022-06-29] MEDS ORDERED: TIOTROPIUM BROMIDE 2.5 MCG (SPIRIVA) RESPIMAT INHALER IH SCH (10:00)
[2022-06-29] MEDS ORDERED: INSULIN (NOVOLOG) ASPART 100 UNITS/ML 10ML VIAL ONE (10:17)
[2022-06-29 14:19] VITALS: BP 126/69; PULSE 76
[2022-06-29] MEDS: LACTATED RINGERS SOLUTION 1,000 ML IV SCH (16:53)
== END 2022-06-29 20:08 | DRG 854 ==
LOC: JER 13:58 → JERBED 18:50 → J6S 06-14 00:31
PROVIDERS: ADMIT Internal Medicine; ATTEND Internal Medicine
PROC: 0T768DZ Dilation of Right Ureter with Intraluminal Device, Via Natural or Artificial Opening Endoscopic (ICD-10-PCS; principal; 2022-06-15 08:00)
PROC: 06H03DZ Insertion of Intraluminal Device into Inferior Vena Cava, Percutaneous Approach (ICD-10-PCS; 2022-06-28)
DX: A41.9 Sepsis, unspecified organism (principal); I13.0 Hypertensive heart and chronic kidney disease with heart failure and stage 1 through stage 4 chronic kidney disease, or unspecified chronic kidney disease; N20.1 Calculus of ureter; N39.0 Urinary tract infection, site not specified; N17.9 Acute kidney failure, unspecified; I50.32 Chronic diastolic (congestive) heart failure; I82.511 Chronic embolism and thrombosis of right femoral vein; E78.5 Hyperlipidemia, unspecified; I48.91 Unspecified atrial fibrillation; J44.9 Chronic obstructive pulmonary disease, unspecified; E11.22 Type 2 diabetes mellitus with diabetic chronic kidney disease; N18.30 Chronic kidney disease, stage 3 unspecified; G40.909 Epilepsy, unspecified, not intractable, without status epilepticus; N13.9 Obstructive and reflux uropathy, unspecified; R31.9 Hematuria, unspecified
CPT/HCPCS: 0241U-QW; 36415; 70450-TC; 71045-TC-FY; 74176-TC; 74230-TC-FY; 76000-TC-FY; 76705-TC; 76775-TC; 80053; 81003; 82803; 82962; 83036; 83605; 83690; 83735; 83880; 84100; 84484; 85025; 87040; 87086; 87186; 92611-GN; 93005; 93010; 94640; 94760; 97116-GP; 97162-GP; 99285-25; C2617; C9803-CS; J1644; U0003; U0005

== ENCOUNTER 2022-09-10 19:24 | Inpatient (IN) | payer OTHER ==
[2022-09-10 19:40] VITALS: BMI 29.9
[2022-09-10] MEDS ORDERED: ACETAMINOPHEN 1000 MG/100 ML BAG IVPB ONE (19:55)
[2022-09-10] MEDS ORDERED: MAGNESIUM SULF 50% (8.12 MEQ/2 ML-1 GM VIAL) IVPB ONE (19:55)
[2022-09-10] MEDS ORDERED: CEFTRIAXONE 1 GM in DEXTROSE 5%-WATER - 100 ML IVPB ONE (19:58)
[2022-09-10] MEDS ORDERED: ACETAMINOPHEN INJECTION 100 ML IVPB ONE (20:43)
[2022-09-10] MEDS ORDERED: ALBUTEROL SO4 2.5/IPRATROPIUM 0.5 INH SOL 3 ML VIAL.NEB. NEB ONE (20:43)
[2022-09-10] MEDS ORDERED: MAGNESIUM SULFATE IN WATER 2 GM/50 ML IVPB IVPB ONE (20:44)
[2022-09-10] MEDS ORDERED: CEFTRIAXONE 1 GM/50 ML BAG ONE (20:44)
[2022-09-10 21:14] LABS: BASO % 0.4 % (0-2.0); EOS % 0.5 % (0-4.5); HEMATOCRIT 33.1 % (32.4-45.2); HEMOGLOBIN 10.8 GM/dL (10.7-15.3); LYMPH % 4.9 % (8-40); MCH 27.3 pg (25.7-33.7); MCHC 32.7 g/dl (32.0-36.0); MEAN CELL VOLUME 83.3 fl (80-96); MEAN PLT VOLUME 7.8 fl (7.5-11.1); MONO % 4.1 % (3.8-10.2); NEUT % 90.1 % (42.8-82.8); PLATELET COUNT 336 10^3/uL (134-434); RBC 3.97 M/mm3 (3.60-5.2); RDW 15.7 % (11.6-15.6); WHITE BLOOD COUNT 18.9 K/mm3 (4.0-10.0)
[2022-09-10 21:24] LABS: INR 1.15 (0.83-1.09); PROTHROMBIN TIME (PATIENT) 13.3 SEC (9.7-13.0)
[2022-09-10 21:27] LABS: ACTIVATED PTT 31.3 SECONDS (25.2-36.5)
[2022-09-10 21:42] LABS: POTASSIUM 4.7 mmol/L (3.5-5.1)
[2022-09-10 21:45] LABS: ALBUMIN 3.2 g/dl (3.4-5.0); CALCIUM 9.3 mg/dL (8.5-10.1); MAGNESIUM 1.7 mg/dL (1.8-2.4)
[2022-09-10 21:47] LABS: BLOOD UREA NITROGEN 14.9 mg/dL (7-18)
[2022-09-10 21:48] LABS: CREATININE 1.2 mg/dL (0.55-1.3)
[2022-09-10 21:50] LABS: ANISOCYTOSIS 1+; BILIRUBIN,TOTAL 0.7 mg/dL (0.2-1); MACROCYTOSIS 0
[2022-09-10 21:51] LABS: TOT PROT 7.6 g/dl (6.4-8.2)
[2022-09-11] MEDS: ALBUTEROL SO4 2.5/IPRATROPIUM 0.5 INH SOL 3 ML VIAL.NEB. NEB SCH (01:59)
[2022-09-11] MEDS ORDERED: IPRATROPIUM BR 0.02% 0.5 MG/2.5 ML VIAL.NEB. NEB PRN (02:04)
[2022-09-11] MEDS ORDERED: GABAPENTIN 100 MG CAPSULE ONE ×2 (05:01→12:50)
[2022-09-11] MEDS: GABAPENTIN 100 MG CAPSULE PO SCH ×2 (05:17→13:15)
[2022-09-11 06:44] LABS: HEMOGLOBIN 10.5 GM/dL (10.7-15.3); MCH 27.2 pg (25.7-33.7); MCHC 31.7 g/dl (32.0-36.0); MEAN CELL VOLUME 85.6 fl (80-96); MEAN PLT VOLUME 8.2 fl (7.5-11.1); PLATELET COUNT 329 10^3/uL (134-434); RBC 3.86 M/mm3 (3.60-5.2); RDW 15.9 % (11.6-15.6); WHITE BLOOD COUNT 16.8 K/mm3 (4.0-10.0)
[2022-09-11 07:57] LABS: ALBUMIN 2.9 g/dl (3.4-5.0); BILIRUBIN,TOTAL 0.4 mg/dL (0.2-1); BLOOD UREA NITROGEN 16.7 mg/dL (7-18); CALCIUM 9.5 mg/dL (8.5-10.1); CREATININE 1.1 mg/dL (0.55-1.3); POTASSIUM 4.4 mmol/L (3.5-5.1); TOT PROT 7.3 g/dl (6.4-8.2)
[2022-09-11] MEDS: INSULIN SLIDING SCALE (NOVOLOG) 1 VIAL SQ SCH ×4 (08:30→22:28)
[2022-09-11] MEDS ORDERED: ALBUTEROL SO4 0.083% IH SOL 2.5 MG/3 ML VIAL.NEB. NEB ONE ×3 (08:50→15:40)
[2022-09-11 09:00] LABS: URINE APPEARANCE CLOUDY; URINE COLOR YELLOW
[2022-09-11] MEDS: ALBUTEROL SO4 0.083% IH SOL 2.5 MG/3 ML VIAL.NEB. NEB SCH ×4 (09:00→20:30)
[2022-09-11 09:01] LABS: URINE BILIRUBIN NEGATIVE (NEGATIVE); URINE KETONE NEGATIVE (NEGATIVE); URINE LEUK ESTERASE 3+ (NEGATIVE); URINE NITRITE NEGATIVE (NEGATIVE); URINE PROTEIN 1+ (NEGATIVE)
[2022-09-11 09:03] LABS: EPI CELLS 12 /uL (0-25.1); HYALINE CASTS 1 /uL (0-3.1); URINE BACTERIA 975 /uL (0-1359); URINE WBC 2670 /uL (0-25.8)
[2022-09-11 10:18] LABS: YEAST NEGATIVE (NEGATIVE)
[2022-09-11] MEDS ORDERED: amLODIPine BESYLATE 10 MG TABLET (FP) ONE (10:42)
[2022-09-11] MEDS ORDERED: PANTOPRAZOLE 40 MG TABLET PO ONE (10:42)
[2022-09-11] MEDS ORDERED: ENOXAPARIN NA (PORCINE) 40 MG/0.4 ML DISP.SYRIN SQ ONE (10:43)
[2022-09-11] MEDS ORDERED: SERTRALINE HCL 50 MG TABLET (FP) ONE (10:43)
[2022-09-11] MEDS: SERTRALINE HCL 25 MG TABLET (FP) PO SCH (10:55)
[2022-09-11] MEDS: amLODIPine BESYLATE 10 MG TABLET (FP) PO SCH (10:55)
[2022-09-11] MEDS: ENOXAPARIN NA (PORCINE) 40 MG/0.4 ML DISP.SYRIN SQ SCH (10:55)
[2022-09-11] MEDS: PANTOPRAZOLE 40 MG TABLET PO SCH (10:55)
[2022-09-11] MEDS: INSULIN (LEVEMIR) 100 UNITS/ML UNITS SQ SCH ×2 (10:55→22:27)
[2022-09-11] MEDS: NYSTATIN POWDER 100,000 UNITS/GM - 15 GM TOPICAL POWDER TP SCH ×2 (11:15→22:28)
[2022-09-11] MEDS ORDERED: CEFTRIAXONE 1 GM/50 ML BAG ONE (17:47)
[2022-09-11] MEDS: CEFTRIAXONE 1 GM in DEXTROSE 5%-WATER - 50 ML IVPB SCH (18:00)
[2022-09-11] MEDS ORDERED: MELATONIN 5 MG TABLETS PO SCH (22:00)
[2022-09-11] MEDS ORDERED: GABAPENTIN 300 MG CAPSULE PO SCH (22:00)
[2022-09-11] MEDS ORDERED: ATORVASTATIN CA 20 MG TABLET (FP) PO SCH (22:00)
[2022-09-11] MEDS ORDERED: ATORVASTATIN CA 20 MG TABLET (FP) ONE (22:16)
[2022-09-11] MEDS ORDERED: GABAPENTIN 300 MG CAPSULE ONE (22:17)
[2022-09-11] MEDS ORDERED: MELATONIN 5 MG TABLETS ONE (22:17)
[2022-09-12] MEDS: ACETAMINOPHEN 325 MG TABLET (FP) PO PRN ×2 (02:07→14:11)
[2022-09-12] MEDS: INSULIN SLIDING SCALE (NOVOLOG) 1 VIAL SQ SCH ×4 (06:53→21:39)
[2022-09-12] MEDS: GABAPENTIN 100 MG CAPSULE PO SCH ×2 (06:53→14:11)
[2022-09-12] MEDS: ALBUTEROL SO4 0.083% IH SOL 2.5 MG/3 ML VIAL.NEB. NEB SCH ×4 (07:40→20:35)
[2022-09-12] MEDS: amLODIPine BESYLATE 10 MG TABLET (FP) PO SCH (09:55)
[2022-09-12] MEDS: ENOXAPARIN NA (PORCINE) 40 MG/0.4 ML DISP.SYRIN SQ SCH ×2 (09:56→12:41)
[2022-09-12] MEDS: PANTOPRAZOLE 40 MG TABLET PO SCH (09:59)
[2022-09-12] MEDS: SERTRALINE HCL 25 MG TABLET (FP) PO SCH (09:59)
[2022-09-12] MEDS ORDERED: IPRATROPIUM BR 0.02% 0.5 MG/2.5 ML VIAL.NEB. NEB PRN (18:39)
[2022-09-12] MEDS: GABAPENTIN 300 MG CAPSULE PO SCH (21:39)
[2022-09-12] MEDS: MELATONIN 5 MG TABLETS PO SCH (21:39)
[2022-09-12] MEDS: ATORVASTATIN CA 20 MG TABLET (FP) PO SCH (21:39)
[2022-09-12] MEDS ORDERED: INSULIN (LEVEMIR) 100 UNITS/ML UNITS SQ SCH (22:00)
[2022-09-12] MEDS: NYSTATIN POWDER 100,000 UNITS/GM - 15 GM TOPICAL POWDER TP SCH (22:35)
[2022-09-12] MEDS: INSULIN (LEVEMIR) 100 UNITS/ML UNITS SQ SCH (23:09)
[2022-09-13] MEDS ORDERED: CEFTRIAXONE 1 GM in DEXTROSE 5%-WATER - 50 ML IVPB ONE (00:27)
[2022-09-13] MEDS: ACETAMINOPHEN 325 MG TABLET (FP) PO PRN ×2 (01:57→08:11)
[2022-09-13] MEDS: GABAPENTIN 100 MG CAPSULE PO SCH ×2 (05:34→13:58)
[2022-09-13] MEDS: INSULIN SLIDING SCALE (NOVOLOG) 1 VIAL SQ SCH ×4 (06:04→21:26)
[2022-09-13] MEDS: ALBUTEROL SO4 0.083% IH SOL 2.5 MG/3 ML VIAL.NEB. NEB SCH ×4 (07:47→20:30)
[2022-09-13 08:54] LABS: BASO % 1.5 % (0-2.0); EOS % 1.9 % (0-4.5); HEMATOCRIT 30.8 % (32.4-45.2); HEMOGLOBIN 9.7 GM/dL (10.7-15.3); LYMPH % 27.3 % (8-40); MCH 26.8 pg (25.7-33.7); MCHC 31.6 g/dl (32.0-36.0); MEAN PLT VOLUME 8.6 fl (7.5-11.1); MONO % 6.5 % (3.8-10.2); NEUT % 62.8 % (42.8-82.8); PLATELET COUNT 348 10^3/uL (134-434); RBC 3.63 M/mm3 (3.60-5.2); RDW 15.4 % (11.6-15.6); WHITE BLOOD COUNT 9.9 K/mm3 (4.0-10.0)
[2022-09-13] MEDS: INSULIN (LEVEMIR) 100 UNITS/ML UNITS SQ SCH ×2 (09:34→21:25)
[2022-09-13] MEDS ORDERED: CEFTRIAXONE 1 GM in DEXTROSE 5%-WATER - 50 ML IVPB SCH (10:00)
[2022-09-13] MEDS: PANTOPRAZOLE 40 MG TABLET PO SCH (10:47)
[2022-09-13] MEDS: amLODIPine BESYLATE 10 MG TABLET (FP) PO SCH (10:47)
[2022-09-13] MEDS: NYSTATIN POWDER 100,000 UNITS/GM - 15 GM TOPICAL POWDER TP SCH ×2 (10:48→21:26)
[2022-09-13] MEDS: SERTRALINE HCL 25 MG TABLET (FP) PO SCH (10:48)
[2022-09-13] MEDS: ENOXAPARIN NA (PORCINE) 40 MG/0.4 ML DISP.SYRIN SQ SCH (10:50)
[2022-09-13] MEDS ORDERED: INSULIN (LEVEMIR) 100 UNITS/ML UNITS SQ ONE (12:00)
[2022-09-13] MEDS: MELATONIN 5 MG TABLETS PO SCH (21:25)
[2022-09-13] MEDS: GABAPENTIN 300 MG CAPSULE PO SCH (21:25)
[2022-09-13] MEDS: ATORVASTATIN CA 20 MG TABLET (FP) PO SCH (21:25)
[2022-09-13] MEDS: CEFTRIAXONE 1 GM in DEXTROSE 5%-WATER - 50 ML IVPB SCH (21:26)
[2022-09-14] MEDS: INSULIN SLIDING SCALE (NOVOLOG) 1 VIAL SQ SCH ×4 (06:27→21:56)
[2022-09-14] MEDS: GABAPENTIN 100 MG CAPSULE PO SCH ×2 (06:28→13:42)
[2022-09-14] MEDS: INSULIN (LEVEMIR) 100 UNITS/ML UNITS SQ SCH ×3 (06:29→21:45)
[2022-09-14] MEDS: ALBUTEROL SO4 0.083% IH SOL 2.5 MG/3 ML VIAL.NEB. NEB SCH ×4 (08:24→20:20)
[2022-09-14] MEDS: ENOXAPARIN NA (PORCINE) 40 MG/0.4 ML DISP.SYRIN SQ SCH (09:39)
[2022-09-14] MEDS: SERTRALINE HCL 25 MG TABLET (FP) PO SCH (09:40)
[2022-09-14] MEDS: NYSTATIN POWDER 100,000 UNITS/GM - 15 GM TOPICAL POWDER TP SCH ×3 (09:40→21:56)
[2022-09-14] MEDS: PANTOPRAZOLE 40 MG TABLET PO SCH (09:40)
[2022-09-14] MEDS: amLODIPine BESYLATE 10 MG TABLET (FP) PO SCH (10:10)
[2022-09-14] MEDS: CEFTRIAXONE 1 GM in DEXTROSE 5%-WATER - 50 ML IVPB SCH ×2 (10:12→21:56)
[2022-09-14] MEDS: ACETAMINOPHEN 325 MG TABLET (FP) PO PRN (11:57)
[2022-09-14] MEDS: ACETAMINOPHEN 1000 MG/100 ML BAG IVPB PRN (16:51)
[2022-09-14] MEDS: MELATONIN 5 MG TABLETS PO SCH (21:55)
[2022-09-14] MEDS: ATORVASTATIN CA 20 MG TABLET (FP) PO SCH (21:55)
[2022-09-14] MEDS: GABAPENTIN 300 MG CAPSULE PO SCH (21:55)
[2022-09-15] MEDS: INSULIN SLIDING SCALE (NOVOLOG) 1 VIAL SQ SCH ×4 (06:14→21:44)
[2022-09-15] MEDS: GABAPENTIN 100 MG CAPSULE PO SCH ×2 (06:14→13:41)
[2022-09-15] MEDS: INSULIN (LEVEMIR) 100 UNITS/ML UNITS SQ SCH ×2 (06:15→22:05)
[2022-09-15] MEDS: ACETAMINOPHEN 325 MG TABLET (FP) PO PRN (06:21)
[2022-09-15] MEDS: ALBUTEROL SO4 0.083% IH SOL 2.5 MG/3 ML VIAL.NEB. NEB SCH ×4 (07:10→19:55)
[2022-09-15] MEDS: PANTOPRAZOLE 40 MG TABLET PO SCH (09:37)
[2022-09-15] MEDS: SERTRALINE HCL 25 MG TABLET (FP) PO SCH (09:37)
[2022-09-15] MEDS: ENOXAPARIN NA (PORCINE) 40 MG/0.4 ML DISP.SYRIN SQ SCH (09:46)
[2022-09-15] MEDS: NYSTATIN POWDER 100,000 UNITS/GM - 15 GM TOPICAL POWDER TP SCH ×2 (10:29→21:39)
[2022-09-15] MEDS: ACETAMINOPHEN 1000 MG/100 ML BAG IVPB PRN (14:47)
[2022-09-15] MEDS: GABAPENTIN 300 MG CAPSULE PO SCH (21:38)
[2022-09-15] MEDS: MELATONIN 5 MG TABLETS PO SCH (21:38)
[2022-09-15] MEDS: ATORVASTATIN CA 20 MG TABLET (FP) PO SCH (21:39)
[2022-09-15] MEDS: CEFTRIAXONE 1 GM in DEXTROSE 5%-WATER - 50 ML IVPB SCH (21:39)
[2022-09-16] MEDS: ACETAMINOPHEN 325 MG TABLET (FP) PO PRN (05:28)
[2022-09-16] MEDS: GABAPENTIN 100 MG CAPSULE PO SCH ×3 (05:28→14:15)
[2022-09-16] MEDS ORDERED: ACETAMINOPHEN 1000 MG/100 ML BAG IVPB ONE (05:38)
[2022-09-16] MEDS: INSULIN (LEVEMIR) 100 UNITS/ML UNITS SQ SCH ×2 (06:02→21:21)
[2022-09-16] MEDS: INSULIN SLIDING SCALE (NOVOLOG) 1 VIAL SQ SCH ×5 (06:03→22:17)
[2022-09-16] MEDS: ALBUTEROL SO4 0.083% IH SOL 2.5 MG/3 ML VIAL.NEB. NEB SCH ×4 (08:42→20:20)
[2022-09-16] MEDS ORDERED: ACETAMINOPHEN 1000 MG/100 ML BAG IVPB PRN (08:44)
[2022-09-16] MEDS: SERTRALINE HCL 25 MG TABLET (FP) PO SCH (10:45)
[2022-09-16] MEDS: PANTOPRAZOLE 40 MG TABLET PO SCH (10:45)
[2022-09-16] MEDS: NYSTATIN POWDER 100,000 UNITS/GM - 15 GM TOPICAL POWDER TP SCH ×2 (10:48→22:17)
[2022-09-16] MEDS: ENOXAPARIN NA (PORCINE) 40 MG/0.4 ML DISP.SYRIN SQ SCH (10:49)
[2022-09-16] MEDS: CEFTRIAXONE 1 GM in DEXTROSE 5%-WATER - 50 ML IVPB SCH (21:16)
[2022-09-16] MEDS: MELATONIN 5 MG TABLETS PO SCH (21:16)
[2022-09-16] MEDS: ATORVASTATIN CA 20 MG TABLET (FP) PO SCH (21:16)
[2022-09-16] MEDS: GABAPENTIN 300 MG CAPSULE PO SCH (21:16)
[2022-09-17] MEDS: GABAPENTIN 100 MG CAPSULE PO SCH ×2 (05:48→13:44)
[2022-09-17] MEDS: INSULIN (LEVEMIR) 100 UNITS/ML UNITS SQ SCH ×2 (06:01→22:06)
[2022-09-17] MEDS: INSULIN SLIDING SCALE (NOVOLOG) 1 VIAL SQ SCH ×4 (06:16→22:06)
[2022-09-17] MEDS: ALBUTEROL SO4 0.083% IH SOL 2.5 MG/3 ML VIAL.NEB. NEB SCH ×3 (08:15→15:20)
[2022-09-17] MEDS: ENOXAPARIN NA (PORCINE) 40 MG/0.4 ML DISP.SYRIN SQ SCH (08:59)
[2022-09-17] MEDS: SERTRALINE HCL 25 MG TABLET (FP) PO SCH (09:00)
[2022-09-17] MEDS: NYSTATIN POWDER 100,000 UNITS/GM - 15 GM TOPICAL POWDER TP SCH ×2 (09:00→21:35)
[2022-09-17] MEDS: PANTOPRAZOLE 40 MG TABLET PO SCH (09:01)
[2022-09-17 09:55] LABS: BASO % 0.7 % (0-2.0); EOS % 2.5 % (0-4.5); HEMATOCRIT 32.9 % (32.4-45.2); HEMOGLOBIN 10.4 GM/dL (10.7-15.3); LYMPH % 30.3 % (8-40); MCH 27.4 pg (25.7-33.7); MCHC 31.7 g/dl (32.0-36.0); MEAN CELL VOLUME 86.2 fl (80-96); MEAN PLT VOLUME 8.4 fl (7.5-11.1); MONO % 5.8 % (3.8-10.2); NEUT % 60.7 % (42.8-82.8); PLATELET COUNT 383 10^3/uL (134-434); RBC 3.82 M/mm3 (3.60-5.2); RDW 15.2 % (11.6-15.6); WHITE BLOOD COUNT 8.2 K/mm3 (4.0-10.0)
[2022-09-17] MEDS ORDERED: ERGOCALCIFEROL (VIT D2) 50,000 UNIT (1.25 MG) CAPSULE PO SCH ×2 (10:00)
[2022-09-17 10:18] LABS: POTASSIUM 4.4 mmol/L (3.5-5.1)
[2022-09-17 10:20] LABS: BLOOD UREA NITROGEN 18.4 mg/dL (7-18); CALCIUM 9.2 mg/dL (8.5-10.1)
[2022-09-17 10:24] LABS: CREATININE 1.1 mg/dL (0.55-1.3)
[2022-09-17 10:25] LABS: BILIRUBIN,TOTAL 0.2 mg/dL (0.2-1); TOT PROT 7.4 g/dl (6.4-8.2)
[2022-09-17] MEDS: CEFTRIAXONE 1 GM in DEXTROSE 5%-WATER - 50 ML IVPB SCH (21:48)
[2022-09-17] MEDS: GABAPENTIN 300 MG CAPSULE PO SCH (21:49)
[2022-09-17] MEDS: MELATONIN 5 MG TABLETS PO SCH (21:49)
[2022-09-17] MEDS: ATORVASTATIN CA 20 MG TABLET (FP) PO SCH (21:49)
[2022-09-17] MEDS ORDERED: ACETAMINOPHEN 1000 MG/100 ML BAG IVPB ONE (23:00)
[2022-09-18] MEDS: INSULIN SLIDING SCALE (NOVOLOG) 1 VIAL SQ SCH ×4 (06:33→22:00)
[2022-09-18] MEDS: GABAPENTIN 100 MG CAPSULE PO SCH ×2 (06:34→14:52)
[2022-09-18] MEDS: INSULIN (LEVEMIR) 100 UNITS/ML UNITS SQ SCH ×2 (06:35→22:00)
[2022-09-18] MEDS: NYSTATIN POWDER 100,000 UNITS/GM - 15 GM TOPICAL POWDER TP SCH ×2 (10:31→22:06)
[2022-09-18] MEDS: SERTRALINE HCL 25 MG TABLET (FP) PO SCH (10:32)
[2022-09-18] MEDS: ENOXAPARIN NA (PORCINE) 40 MG/0.4 ML DISP.SYRIN SQ SCH (10:32)
[2022-09-18] MEDS: PANTOPRAZOLE 40 MG TABLET PO SCH (10:32)
[2022-09-18] MEDS: ACETAMINOPHEN 325 MG TABLET (FP) PO PRN (10:36)
[2022-09-18] MEDS: ALBUTEROL SO4 2.5/IPRATROPIUM 0.5 INH SOL 3 ML VIAL.NEB. NEB SCH ×3 (11:00→20:25)
[2022-09-18] MEDS ORDERED: INSULIN SLIDING SCALE (NOVOLOG) 1 VIAL SQ ONE (11:31)
[2022-09-18] MEDS ORDERED: methylPREDNISolone NA SUCC 40 MG/1 ML VIAL IVPUSH ONE (12:34)
[2022-09-18 13:41] LABS: POTASSIUM 4.6 mmol/L (3.5-5.1)
[2022-09-18 13:43] LABS: ALBUMIN 3.2 g/dl (3.4-5.0); CALCIUM 9.8 mg/dL (8.5-10.1)
[2022-09-18 13:44] LABS: BLOOD UREA NITROGEN 16.9 mg/dL (7-18)
[2022-09-18 13:46] LABS: CREATININE 1.1 mg/dL (0.55-1.3)
[2022-09-18 13:48] LABS: BILIRUBIN,TOTAL 0.3 mg/dL (0.2-1); TOT PROT 8.4 g/dl (6.4-8.2)
[2022-09-18] MEDS: TAMSULOSIN HCL 0.4 MG CAP PO SCH (14:52)
[2022-09-18] MEDS: GABAPENTIN 300 MG CAPSULE PO SCH (22:05)
[2022-09-18] MEDS: ATORVASTATIN CA 20 MG TABLET (FP) PO SCH (22:06)
[2022-09-18] MEDS: guaiFENesin 600 MG TABLET.ER (FP) PO SCH (22:06)
[2022-09-18] MEDS: MELATONIN 5 MG TABLETS PO SCH (22:06)
[2022-09-18] MEDS: CEFTRIAXONE 1 GM in DEXTROSE 5%-WATER - 50 ML IVPB SCH (22:07)
[2022-09-19] MEDS: INSULIN (LEVEMIR) 100 UNITS/ML UNITS SQ SCH (06:33)
[2022-09-19] MEDS: INSULIN SLIDING SCALE (NOVOLOG) 1 VIAL SQ SCH ×3 (06:35→16:46)
[2022-09-19] MEDS: GABAPENTIN 100 MG CAPSULE PO SCH ×2 (06:37→14:09)
[2022-09-19] MEDS: ALBUTEROL SO4 2.5/IPRATROPIUM 0.5 INH SOL 3 ML VIAL.NEB. NEB SCH ×3 (07:50→15:15)
[2022-09-19] MEDS: SERTRALINE HCL 25 MG TABLET (FP) PO SCH (09:50)
[2022-09-19] MEDS: TAMSULOSIN HCL 0.4 MG CAP PO SCH (09:50)
[2022-09-19] MEDS: guaiFENesin 600 MG TABLET.ER (FP) PO SCH (09:50)
[2022-09-19] MEDS: ENOXAPARIN NA (PORCINE) 40 MG/0.4 ML DISP.SYRIN SQ SCH (09:50)
[2022-09-19] MEDS: NYSTATIN POWDER 100,000 UNITS/GM - 15 GM TOPICAL POWDER TP SCH (09:50)
[2022-09-19] MEDS: PANTOPRAZOLE 40 MG TABLET PO SCH (09:50)
[2022-09-19 14:02] VITALS: BP 115/62; PULSE 98; RESP 20; TEMP 97.9
== END 2022-09-19 16:51 | DRG 191 ==
LOC: JER 19:24 → JERBED 22:36 → OBSVTOIN 09-11 14:16 → J4S 09-12 00:16 → J5S 09-12 18:22
PROVIDERS: ADMIT Internal Medicine; ATTEND Internal Medicine
DX: J44.1 Chronic obstructive pulmonary disease with (acute) exacerbation (principal); I13.0 Hypertensive heart and chronic kidney disease with heart failure and stage 1 through stage 4 chronic kidney disease, or unspecified chronic kidney disease; I50.32 Chronic diastolic (congestive) heart failure; N39.0 Urinary tract infection, site not specified; N18.30 Chronic kidney disease, stage 3 unspecified; E11.22 Type 2 diabetes mellitus with diabetic chronic kidney disease; G40.909 Epilepsy, unspecified, not intractable, without status epilepticus; N25.0 Renal osteodystrophy; G47.00 Insomnia, unspecified; K59.00 Constipation, unspecified; B96.20 Unspecified Escherichia coli [E. coli] as the cause of diseases classified elsewhere; B96.89 Other specified bacterial agents as the cause of diseases classified elsewhere; F41.8 Other specified anxiety disorders; R31.9 Hematuria, unspecified; E66.9 Obesity, unspecified; Z68.30 Body mass index [BMI] 30.0-30.9, adult; G89.29 Other chronic pain; I25.10 Atherosclerotic heart disease of native coronary artery without angina pectoris; N20.0 Calculus of kidney; I48.91 Unspecified atrial fibrillation; Z79.01 Long term (current) use of anticoagulants; Z96.641 Presence of right artificial hip joint
CPT/HCPCS: 0241U-QW; 36415; 71045-TC-FY; 71250-TC; 74176-TC; 80053; 81003; 82550; 82962; 83735; 83880; 84484; 85025; 85027; 85610; 85730; 87040; 87077; 87086; 87186; 87635; 93005; 93010; 94640; 99285-25; G0378

== ENCOUNTER 2023-02-11 10:42 | Emergency (ER) | payer OTHER ==
[2023-02-11 11:17] VITALS: RESP 18; BMI 24.3
[2023-02-11] MEDS ORDERED: methylPREDNISolone NA SUCC 125 MG/2 ML VIAL IVPUSH ONE (11:34)
[2023-02-11] MEDS ORDERED: ALBUTEROL SO4 2.5/IPRATROPIUM 0.5 INH SOL 3 ML VIAL.NEB. NEB ONE (11:59)
[2023-02-11] MEDS ORDERED: methylPREDNISolone NA SUCC 125 MG/2 ML VIAL ONE (11:59)
[2023-02-11 12:07] LABS: BASO % 1.2 % (0-2.0); EOS % 4.1 % (0-4.5); HEMATOCRIT 31.7 % (32.4-45.2); LYMPH % 16.7 % (8-40); MCH 26.1 pg (25.7-33.7); MCHC 31.5 g/dl (32.0-36.0); MEAN CELL VOLUME 83.1 fl (80-96); MEAN PLT VOLUME 8.1 fl (7.5-11.1); MONO % 6.4 % (3.8-10.2); NEUT % 71.6 % (42.8-82.8); PLATELET COUNT 276 10^3/uL (134-434); RBC 3.81 M/mm3 (3.60-5.2); RDW 16.5 % (11.6-15.6); WHITE BLOOD COUNT 9.8 K/mm3 (4.0-10.0)
[2023-02-11] MEDS: ALBUTEROL SO4 2.5/IPRATROPIUM 0.5 INH SOL 3 ML VIAL.NEB. NEB SCH (12:09)
[2023-02-11 12:12] LABS: INR 1.02 (0.83-1.09); PROTHROMBIN TIME (PATIENT) 11.8 SEC (9.7-13.0)
[2023-02-11 12:14] LABS: ACTIVATED PTT 32.6 SECONDS (25.2-36.5)
[2023-02-11 12:32] LABS: POTASSIUM 4.6 mmol/L (3.5-5.1)
[2023-02-11 12:34] LABS: ALBUMIN 2.9 g/dl (3.4-5.0); BLOOD UREA NITROGEN 13.3 mg/dL (7-18)
[2023-02-11 12:38] LABS: CREATININE 1.1 mg/dL (0.55-1.3)
[2023-02-11 12:39] LABS: BILIRUBIN,TOTAL 0.4 mg/dL (0.2-1); TOT PROT 7.9 g/dl (6.4-8.2)
[2023-02-11 12:42] LABS: N-TERMINAL BNP 232.9 pg/ml (5-125)
[2023-02-11 12:47] LABS: CALCIUM 9.5 mg/dL (8.5-10.1)
[2023-02-11] MEDS ORDERED: MAGNESIUM SULFATE IN WATER 2 GM/50 ML IVPB IVPB ONE ×2 (15:38→16:06)
[2023-02-11 16:22] LABS: MAGNESIUM 1.7 mg/dL (1.8-2.4)
[2023-02-11 22:13] VITALS: BP 132/68; PULSE 98; TEMP 97.9
== END 2023-02-12 03:01 | disposition home or self-care (01) ==
LOC: JER 10:42
PROC: 3E033GC Introduction of Other Therapeutic Substance into Peripheral Vein, Percutaneous Approach (ICD-10-PCS; principal; 2023-02-11)
PROC: 3E033GC Introduction of Other Therapeutic Substance into Peripheral Vein, Percutaneous Approach (ICD-10-PCS; 2023-02-11)
PROC: 3E0F7GC Introduction of Other Therapeutic Substance into Respiratory Tract, Via Natural or Artificial Opening (ICD-10-PCS; 2023-02-11)
DX: R07.9 Chest pain, unspecified (principal); R09.81 Nasal congestion; R05.9 Cough, unspecified; R09.89 Other specified symptoms and signs involving the circulatory and respiratory systems; R53.83 Other fatigue; R50.9 Fever, unspecified; R09.3 Abnormal sputum; J02.9 Acute pharyngitis, unspecified; J21.0 Acute bronchiolitis due to respiratory syncytial virus; R06.02 Shortness of breath; Z20.822 Contact with and (suspected) exposure to COVID-19
CPT/HCPCS: 0241U-QW; 36415; 71045-TC-FY; 80053; 83735; 83880; 84484; 85025; 85610; 85730; 93005; 93010; 99285-25

== ENCOUNTER 2023-07-13 18:02 | Inpatient (IN) | payer OTHER ==
[2023-07-13 20:39] LABS: BASO % 0.9 % (0-2.0); EOS % 3.3 % (0-4.5); HEMATOCRIT 33.5 % (32.4-45.2); HEMOGLOBIN 11.1 GM/dL (10.7-15.3); LYMPH % 31.9 % (8-40); MCH 29.4 pg (25.7-33.7); MCHC 33.1 g/dl (32.0-36.0); MEAN CELL VOLUME 88.7 fl (80-96); MEAN PLT VOLUME 8.3 fl (7.5-11.1); MONO % 5.7 % (3.8-10.2); NEUT % 58.2 % (42.8-82.8); PLATELET COUNT 244 10^3/uL (134-434); RBC 3.77 M/mm3 (3.60-5.2); RDW 14.3 % (11.6-15.6); WHITE BLOOD COUNT 8.9 K/mm3 (4.0-10.0)
[2023-07-13 20:59] LABS: POTASSIUM 3.9 mmol/L (3.5-5.1)
[2023-07-13 21:01] LABS: ALBUMIN 3.2 g/dl (3.4-5.0); BLOOD UREA NITROGEN 15.4 mg/dL (7-18)
[2023-07-13 21:04] LABS: CREATININE 1.1 mg/dL (0.55-1.3)
[2023-07-13 21:06] LABS: BILIRUBIN,TOTAL 0.2 mg/dL (0.2-1); TOT PROT 7.6 g/dl (6.4-8.2)
[2023-07-13 21:37] LABS: EPI CELLS 13 /uL (0-25.1); HYALINE CASTS 0 /uL (0-3.1); URINE APPEARANCE TURBID; URINE BACTERIA >9,000 /uL (0-1359); URINE BILIRUBIN NEGATIVE (NEGATIVE); URINE COLOR YELLOW; URINE GLUCOSE (UA) NEGATIVE (NEGATIVE); URINE KETONE NEGATIVE (NEGATIVE); URINE LEUK ESTERASE 3+ (NEGATIVE); URINE NITRITE NEGATIVE (NEGATIVE); URINE PROTEIN 1+ (NEGATIVE); URINE WBC 5651 /uL (0-25.8)
[2023-07-13 22:14] LABS: URINE RBC 209.8 /uL (0-23.9)
[2023-07-13] MEDS ORDERED: SERTRALINE HCL 50 MG TABLET (FP) ONE (22:25)
[2023-07-13] MEDS ORDERED: ATORVASTATIN CA 20 MG TABLET (FP) ONE (22:25)
[2023-07-13] MEDS ORDERED: HEPARIN NA (PORCINE) 5,000 UNITS/ML 1ML VIAL ONE (22:26)
[2023-07-13] MEDS: SERTRALINE HCL 25 MG TABLET (FP) PO SCH (22:36)
[2023-07-13] MEDS: ATORVASTATIN CA 20 MG TABLET (FP) PO SCH (22:36)
[2023-07-13] MEDS: HEPARIN NA (PORCINE) 5,000 UNITS/ML 1ML VIAL SQ SCH (22:36)
[2023-07-13] MEDS ORDERED: INSULIN ASPART SLIDING SCALE (NOVOLOG) 1 VIAL SQ ONE (22:38)
[2023-07-13] MEDS: INSULIN ASPART SLIDING SCALE (NOVOLOG) 1 VIAL SQ SCH (22:48)
[2023-07-14 01:21] VITALS: BMI 28.9
[2023-07-14] MEDS: TAMSULOSIN HCL 0.4 MG CAP PO SCH (08:40)
[2023-07-14] MEDS: amLODIPine BESYLATE 10 MG TABLET (FP) PO SCH (10:12)
[2023-07-14] MEDS: ACETAMINOPHEN 325 MG TABLET (FP) PO PRN (12:00)
[2023-07-14] MEDS: PIPERACILLIN/TAZOB 3.375 GM 3.375 GM in DEXTROSE 5%-WATER - 50 ML IVPB SCH (14:29)
[2023-07-15 09:18] LABS: N-TERMINAL BNP 151.9 pg/ml (5-125)
[2023-07-15] MEDS: MEROPENEM 1 GM in DEXTROSE 5%-WATER 100 ML IVPB SCH (18:15)
[2023-07-16] MEDS: diphenhydrAMINE HCL 25 MG CAPSULE (FP) PO ONE ×2 (01:12→18:50)
[2023-07-16 16:07] LABS: BASO % 0.7 % (0-2.0); EOS % 2.6 % (0-4.5); HEMATOCRIT 33.8 % (32.4-45.2); HEMOGLOBIN 11.1 GM/dL (10.7-15.3); LYMPH % 24.9 % (8-40); MCH 29.1 pg (25.7-33.7); MCHC 32.7 g/dl (32.0-36.0); MEAN CELL VOLUME 88.9 fl (80-96); MEAN PLT VOLUME 8.6 fl (7.5-11.1); MONO % 6.1 % (3.8-10.2); NEUT % 65.7 % (42.8-82.8); PLATELET COUNT 254 10^3/uL (134-434); RDW 13.9 % (11.6-15.6); WHITE BLOOD COUNT 8.8 K/mm3 (4.0-10.0)
[2023-07-16 16:24] LABS: CALCIUM 9.2 mg/dL (8.5-10.1)
[2023-07-16 16:25] LABS: BLOOD UREA NITROGEN 12.1 mg/dL (7-18)
[2023-07-16 16:29] LABS: BILIRUBIN,TOTAL 0.5 mg/dL (0.2-1); TOT PROT 7.3 g/dl (6.4-8.2)
[2023-07-16] MEDS ORDERED: diphenhydrAMINE HCL 25 MG CAPSULE (FP) PO ONE (18:35)
[2023-07-16] MEDS: diphenhydrAMINE HCL 25 MG CAPSULE (FP) PO PRN (22:13)
[2023-07-18] MEDS: TRIAMCINOLONE ACET 0.5% CREAM 15 GM TUBE TP SCH (11:35)
[2023-07-18 12:19] VITALS: RESP 18
[2023-07-19 10:21] VITALS: BP 125/58; PULSE 78; TEMP 99.2
== END 2023-07-19 12:03 | DRG 690 ==
LOC: JER 18:02 → JERBED 19:01 → J5S 07-14 00:55 → J6S 07-15 18:03
PROVIDERS: ADMIT Internal Medicine; ATTEND Internal Medicine
DX: N39.0 Urinary tract infection, site not specified (principal); I13.0 Hypertensive heart and chronic kidney disease with heart failure and stage 1 through stage 4 chronic kidney disease, or unspecified chronic kidney disease; E78.5 Hyperlipidemia, unspecified; N76.2 Acute vulvitis; J44.9 Chronic obstructive pulmonary disease, unspecified; Z99.81 Dependence on supplemental oxygen; G40.909 Epilepsy, unspecified, not intractable, without status epilepticus; R31.9 Hematuria, unspecified; I25.10 Atherosclerotic heart disease of native coronary artery without angina pectoris; I48.0 Paroxysmal atrial fibrillation; E11.22 Type 2 diabetes mellitus with diabetic chronic kidney disease; N18.30 Chronic kidney disease, stage 3 unspecified; I50.9 Heart failure, unspecified; M06.9 Rheumatoid arthritis, unspecified; Z79.4 Long term (current) use of insulin
CPT/HCPCS: 36415; 74176-TC; 80053; 80061; 81003; 82962; 83036; 83880; 84439; 84443; 85025; 87040; 87086; 87186; 93005; 93010; 99285-25

== ENCOUNTER 2023-10-15 04:10 | Day surgery (SDC) | payer OTHER ==
[2023-10-11 16:06] VITALS: BMI 33.7
[2023-10-15 07:29] VITALS: RESP 16
[2023-10-15] MEDS ORDERED: PROPOFOL 20 ML ONE (10:09)
[2023-10-15] MEDS ORDERED: ALBUTEROL SO4 HFA INHALER IH ONE (10:10)
[2023-10-15] MEDS: ceFAZolin SODIUM 1 GM VIAL IVPB ONE (10:28)
[2023-10-15] MEDS: LACTATED RINGERS SOLUTION 1,000 ML IV SCH (10:40)
[2023-10-15] MEDS ORDERED: ONDANSETRON 4 MG/2 ML VIAL IVPUSH PRN (10:41)
[2023-10-15 12:06] VITALS: BP 110/60; PULSE 70; TEMP 97.8
== END 2023-10-15 12:15 ==
LOC: JASU-SURG 04:10
PROVIDERS: ATTEND Urology
PROC: 0T7D8ZZ Dilation of Urethra, Via Natural or Artificial Opening Endoscopic (ICD-10-PCS; principal; 2023-10-15 10:00)
DX: N31.9 Neuromuscular dysfunction of bladder, unspecified (principal); N35.82 Other urethral stricture, female; N39.0 Urinary tract infection, site not specified
CPT/HCPCS: 82962; 94760

== ENCOUNTER 2023-11-16 23:54 | Inpatient (IN) | payer OTHER ==
[2023-11-17 00:29] VITALS: BMI 34.9
[2023-11-17] MEDS ORDERED: ACETAMINOPHEN INJECTION 100 ML ONE (01:34)
[2023-11-17] MEDS ORDERED: ONDANSETRON 4 MG/2 ML VIAL ONE (01:34)
[2023-11-17] MEDS: ACETAMINOPHEN 1000 MG/100 ML BAG IVPB ONE ×2 (01:51→01:52)
[2023-11-17] MEDS: ONDANSETRON 4 MG/2 ML VIAL IVPB ONE (01:51)
[2023-11-17] MEDS: LACTATED RINGERS SOLUTION 1000 ML INFUS.BAG IV ONE (01:52)
[2023-11-17] MEDS ORDERED: FAMOTIDINE 20 MG/50 ML IVPB 20 MG/50 ML MG IVPB ONE (01:59)
[2023-11-17] MEDS: FAMOTIDINE 20 MG/50 ML IVPB 20 MG/50 ML MG IVPB ONE (02:05)
[2023-11-17 02:27] LABS: BASO % 0.2 % (0-2.0); EOS % 0.1 % (0-4.5); HEMATOCRIT 37.8 % (32.4-45.2); HEMOGLOBIN 12.2 GM/dL (10.7-15.3); LYMPH % 10.2 % (8-40); MCH 28.4 pg (25.7-33.7); MCHC 32.3 g/dl (32.0-36.0); MEAN CELL VOLUME 87.7 fl (80-96); MEAN PLT VOLUME 8.9 fl (7.5-11.1); NEUT % 83.5 % (42.8-82.8); PLATELET COUNT 307 10^3/uL (134-434); RBC 4.31 M/mm3 (3.60-5.2); WHITE BLOOD COUNT 8.8 K/mm3 (4.0-10.0)
[2023-11-17 02:37] LABS: VENOUS BASE EXCESS 3.1 mmol/L (-2-2); VENOUS O2 SATURATION 49.4 % (70-80); VENOUS PCO2 56.9 mmHg (38-52); VENOUS PH 7.345 (7.310-7.410)
[2023-11-17 02:45] LABS: INR 1.02 (0.83-1.09); PROTHROMBIN TIME (PATIENT) 11.5 SEC (9.7-13.0)
[2023-11-17 02:48] LABS: ACTIVATED PTT 33.2 SECONDS (25.2-36.5)
[2023-11-17 02:52] LABS: POTASSIUM 4.3 mmol/L (3.5-5.1)
[2023-11-17 02:54] LABS: ALBUMIN 3.8 g/dl (3.4-5.0); BLOOD UREA NITROGEN 27.1 mg/dL (7-18); CALCIUM 10.1 mg/dL (8.5-10.1)
[2023-11-17 02:57] LABS: CREATININE 1.4 mg/dL (0.55-1.3)
[2023-11-17 02:59] LABS: BILIRUBIN,TOTAL 0.9 mg/dL (0.2-1)
[2023-11-17] MEDS ORDERED: LIDOCAINE HCL 2% JELLY 11 ML TP ONE (04:46)
[2023-11-17] MEDS: SIMETHICONE 80 MG TAB.CHEW (FP) PO ONE (04:59)
[2023-11-17] MEDS ORDERED: morphine SULFATE 4 MG/ML VIAL ONE (05:16)
[2023-11-17] MEDS: morphine CARPU-JECT 2 MG/1 ML DISP.SYRIN IVPUSH ONE ×2 (05:24→05:34)
[2023-11-17] MEDS: INSULIN ASPART SLIDING SCALE (NOVOLOG) 1 VIAL SQ SCH (06:07)
[2023-11-17] MEDS: SODIUM CHLORIDE 1,000 ML IV STA (06:07)
[2023-11-17] MEDS: SODIUM CHLORIDE 0.45% 1,000 ML IV SCH (06:58)
[2023-11-17] MEDS ORDERED: PHENOL 177 ML SPRAY BOTTLE MM PRN (07:34)
[2023-11-17] MEDS ORDERED: IPRATROPIUM BR 0.02% 0.5 MG/2.5 ML VIAL.NEB. NEB PRN (07:55)
[2023-11-17] MEDS ORDERED: ONDANSETRON 4 MG/2 ML VIAL IVPUSH PRN (08:00)
[2023-11-17 08:19] LABS: MAGNESIUM 2.3 mg/dL (1.8-2.4)
[2023-11-17 08:23] LABS: PHOSPHOROUS 3.6 mg/dL (2.5-4.9)
[2023-11-17] MEDS: FLUTICASONE/SALMETEROL (WIXELA) 100 MCG/50 MCG DISKUS IH SCH (13:22)
[2023-11-17] MEDS: ACETAMINOPHEN 1000 MG/100 ML BAG IVPB PRN (13:23)
[2023-11-17] MEDS: DEXTROSE 5%-LACTATED RINGERS 1,000 ML IV SCH (23:06)
[2023-11-18] MEDS: FAMOTIDINE 20 MG/50 ML IVPB 20 MG/50 ML MG IVPB SCH (11:11)
[2023-11-18 12:59] LABS: BASO % 0.4 % (0-2.0); EOS % 1.2 % (0-4.5); HEMATOCRIT 32.2 % (32.4-45.2); HEMOGLOBIN 10.1 GM/dL (10.7-15.3); LYMPH % 10.3 % (8-40); MCH 27.5 pg (25.7-33.7); MCHC 31.2 g/dl (32.0-36.0); MEAN PLT VOLUME 8.6 fl (7.5-11.1); MONO % 7.5 % (3.8-10.2); NEUT % 80.6 % (42.8-82.8); PLATELET COUNT 220 10^3/uL (134-434); RBC 3.65 M/mm3 (3.60-5.2); RDW 14.9 % (11.6-15.6)
[2023-11-18 13:16] LABS: POTASSIUM 3.6 mmol/L (3.5-5.1)
[2023-11-18 13:17] LABS: CALCIUM 8.8 mg/dL (8.5-10.1)
[2023-11-18 14:25] LABS: EPI CELLS 16 /uL (0-25.1); HYALINE CASTS 0 /uL (0-3.1); PH,URINE 6.5 (5.0-8.0); URINE APPEARANCE CLOUDY; URINE BACTERIA 192 /uL (0-1359); URINE BILIRUBIN NEGATIVE (NEGATIVE); URINE COLOR YELLOW; URINE GLUCOSE (UA) NEGATIVE (NEGATIVE); URINE KETONE NEGATIVE (NEGATIVE); URINE LEUK ESTERASE 2+ (NEGATIVE); URINE NITRITE NEGATIVE (NEGATIVE); URINE PROTEIN 2+ (NEGATIVE); URINE RBC 144 /uL (0-23.9); URINE WBC 746 /uL (0-25.8)
[2023-11-18 15:07] LABS: URINE CRYSTALS NONE SEEN /hpf
[2023-11-19 09:31] LABS: BASO % 0.3 % (0-2.0); EOS % 1.9 % (0-4.5); HEMATOCRIT 30.8 % (32.4-45.2); HEMOGLOBIN 9.7 GM/dL (10.7-15.3); LYMPH % 13.7 % (8-40); MCH 27.7 pg (25.7-33.7); MCHC 31.5 g/dl (32.0-36.0); MEAN PLT VOLUME 8.6 fl (7.5-11.1); MONO % 6.7 % (3.8-10.2); NEUT % 77.4 % (42.8-82.8); PLATELET COUNT 224 10^3/uL (134-434); RBC 3.51 M/mm3 (3.60-5.2); RDW 14.7 % (11.6-15.6); WHITE BLOOD COUNT 11.7 K/mm3 (4.0-10.0)
[2023-11-19 09:51] LABS: POTASSIUM 3.5 mmol/L (3.5-5.1)
[2023-11-19 10:01] LABS: BLOOD UREA NITROGEN 11.8 mg/dL (7-18); CALCIUM 9.1 mg/dL (8.5-10.1)
[2023-11-19 10:12] LABS: BILIRUBIN,TOTAL 0.9 mg/dL (0.2-1)
[2023-11-19 10:23] LABS: ALBUMIN 2.6 g/dl (3.4-5.0); TOT PROT 6.5 g/dl (6.4-8.2)
[2023-11-19] MEDS: IOHEXOL (OMNIPAQUE IV) 350 MG/ML - 100 ML BOTTLE PO ONE (11:45)
[2023-11-19] MEDS: INSULIN ASPART SLIDING SCALE (NOVOLOG) 1 VIAL SQ SCH (16:47)
[2023-11-19] MEDS: ACETAMINOPHEN 1000 MG/100 ML BAG IVPB ONE (21:46)
[2023-11-20] MEDS: TAMSULOSIN HCL 0.4 MG CAP PO SCH (10:18)
[2023-11-21 14:32] VITALS: BP 142/60; PULSE 87; RESP 20; TEMP 98.2
[2023-11-21] MEDS ORDERED: CEFTRIAXONE 1 GM in DEXTROSE 5%-WATER - 50 ML IVPB SCH (19:00)
== END 2023-11-21 20:43 | DRG 388 ==
LOC: JER 23:54 → JERBED 11-17 05:34 → J7W 11-17 09:01
PROVIDERS: ADMIT Internal Medicine; ATTEND Internal Medicine
PROC: 0D9670Z Drainage of Stomach with Drainage Device, Via Natural or Artificial Opening (ICD-10-PCS; principal; 2023-11-17)
DX: K56.609 Unspecified intestinal obstruction, unspecified as to partial versus complete obstruction (principal); J96.21 Acute and chronic respiratory failure with hypoxia; I50.32 Chronic diastolic (congestive) heart failure; I13.0 Hypertensive heart and chronic kidney disease with heart failure and stage 1 through stage 4 chronic kidney disease, or unspecified chronic kidney disease; E11.22 Type 2 diabetes mellitus with diabetic chronic kidney disease; N18.9 Chronic kidney disease, unspecified; I25.10 Atherosclerotic heart disease of native coronary artery without angina pectoris; I48.91 Unspecified atrial fibrillation; J44.9 Chronic obstructive pulmonary disease, unspecified; J45.909 Unspecified asthma, uncomplicated; E11.40 Type 2 diabetes mellitus with diabetic neuropathy, unspecified; R56.9 Unspecified convulsions; F32.A Depression, unspecified; Z99.81 Dependence on supplemental oxygen; F32.9 Major depressive disorder, single episode, unspecified; G47.00 Insomnia, unspecified
CPT/HCPCS: 0241U-QW; 36415; 71045-TC-FY; 74019-TC-FY; 74177-TC; 80048; 80053; 81003; 82803; 82962; 83605; 83735; 84100; 84484; 85025; 85610; 85730; 86850; 86900; 86901; 87040; 87086; 87186; 93005; 93010; 99285-25; J0131

== ENCOUNTER 2024-04-21 19:42 | Inpatient (IN) | payer OTHER ==
[2024-04-21] MEDS ORDERED: methylPREDNISolone NA SUCC 125 MG/2 ML VIAL ONE (20:47)
[2024-04-21] MEDS ORDERED: ALBUTEROL SO4 2.5/IPRATROPIUM 0.5 INH SOL 3 ML VIAL.NEB. NEB ONE (20:47)
[2024-04-21] MEDS: ALBUTEROL SO4 2.5/IPRATROPIUM 0.5 INH SOL 3 ML VIAL.NEB. NEB SCH (21:03)
[2024-04-21] MEDS: methylPREDNISolone NA SUCC 125 MG/2 ML VIAL IVPB ONE (21:03)
[2024-04-21 21:06] LABS: BASO % 0.6 % (0-2.0); HEMATOCRIT 37.9 % (32.4-45.2); LYMPH % 14.2 % (8-40); MCH 28.2 pg (25.7-33.7); MCHC 31.8 g/dl (32.0-36.0); MEAN CELL VOLUME 88.7 fl (80-96); MEAN PLT VOLUME 8.6 fl (7.5-11.1); MONO % 6.5 % (3.8-10.2); NEUT % 76.7 % (42.8-82.8); PLATELET COUNT 224 10^3/uL (134-434); RBC 4.27 M/mm3 (3.60-5.2); RDW 15.4 % (11.6-15.6)
[2024-04-21 21:07] LABS: VENOUS BASE EXCESS 0.8 mmol/L (-2-2); VENOUS O2 SATURATION 51.5 % (70-80); VENOUS PCO2 69.3 mmHg (38-52); VENOUS PH 7.252 (7.310-7.410)
[2024-04-21 21:13] LABS: INR 1.07 (0.83-1.09); PROTHROMBIN TIME (PATIENT) 11.7 SEC (9.7-13.0)
[2024-04-21 21:16] LABS: ACTIVATED PTT 33.3 SECONDS (25.2-36.5)
[2024-04-21 21:29] LABS: POTASSIUM 4.6 mmol/L (3.5-5.1)
[2024-04-21 21:31] LABS: ALBUMIN 3.2 g/dl (3.4-5.0); BLOOD UREA NITROGEN 14.2 mg/dL (7-18); CALCIUM 9.2 mg/dL (8.5-10.1)
[2024-04-21 21:34] LABS: CREATININE 1.2 mg/dL (0.55-1.3)
[2024-04-21 21:36] LABS: BILIRUBIN,TOTAL 0.8 mg/dL (0.2-1); TOT PROT 7.4 g/dl (6.4-8.2)
[2024-04-21 22:22] LABS: N-TERMINAL BNP 1048.6 pg/ml (5-125)
[2024-04-21] MEDS ORDERED: FUROSEMIDE 40 MG/4 ML INJECTABLE VIAL ONE (23:52)
[2024-04-21] MEDS ORDERED: PIPERACILLIN/TAZOB 4.5 GM 4.5 GM/100 ML BAG IVPB ONE (23:52)
[2024-04-21] MEDS ORDERED: VANCOMYCIN 1 GM PREMIX (F) 1 GM/200 ML BAG ONE (23:52)
[2024-04-22] MEDS: FUROSEMIDE 40 MG/4 ML INJECTABLE VIAL IVPUSH ONE ×2 (00:01→15:40)
[2024-04-22] MEDS: VANCOMYCIN 1,000 MG in DEXTROSE 5%-WATER - 250 ML IVPB ONE (00:01)
[2024-04-22] MEDS: PIPERACILLIN/TAZOB 4.5 GM 4.5 GM in DEXTROSE 5%-WATER 100 ML IVPB ONE (00:01)
[2024-04-22] MEDS ORDERED: ALBUTEROL SO4 2.5/IPRATROPIUM 0.5 INH SOL 3 ML VIAL.NEB. NEB PRN (02:30)
[2024-04-22] MEDS ORDERED: POLYETHYLENE GLYCOL (HEALTHYLAX) 3350 17 GM PACKET PO PRN ×2 (03:42→09:04)
[2024-04-22 05:46] LABS: ARTERIAL BLD GAS O2 SATURATION 96.1 % (95-98); ARTERIAL BLOOD GAS BASE EXCESS -1.4 mmol/L (-2-2); ARTERIAL BLOOD GAS PO2 101.6 mmHg (80-100); ARTERIAL BLOOD GAS pH 7.201 (7.350-7.450)
[2024-04-22 05:48] LABS: ALLENS TEST POSITIVE
[2024-04-22] MEDS ORDERED: methylPREDNISolone NA SUCC 40 MG/1 ML VIAL ONE ×2 (06:35→17:55)
[2024-04-22] MEDS ORDERED: GABAPENTIN 100 MG CAPSULE ONE ×2 (06:35→14:27)
[2024-04-22] MEDS ORDERED: FUROSEMIDE 40 MG/4 ML INJECTABLE VIAL ONE ×2 (06:36→14:27)
[2024-04-22] MEDS: GABAPENTIN 100 MG CAPSULE PO SCH (06:42)
[2024-04-22] MEDS: methylPREDNISolone NA SUCC 40 MG/1 ML VIAL IVPUSH SCH ×2 (06:42→18:16)
[2024-04-22] MEDS: FUROSEMIDE 40 MG/4 ML INJECTABLE VIAL IVPUSH SCH (06:42)
[2024-04-22 07:16] LABS: HEMATOCRIT 40.6 % (32.4-45.2); HEMOGLOBIN 12.9 GM/dL (10.7-15.3); MCH 28.6 pg (25.7-33.7); MCHC 31.8 g/dl (32.0-36.0); MEAN CELL VOLUME 89.8 fl (80-96); MEAN PLT VOLUME 8.9 fl (7.5-11.1); PLATELET COUNT 227 10^3/uL (134-434); RBC 4.52 M/mm3 (3.60-5.2); RDW 15.1 % (11.6-15.6); WHITE BLOOD COUNT 7.9 K/mm3 (4.0-10.0)
[2024-04-22 07:46] LABS: POTASSIUM 5.6 mmol/L (3.5-5.1)
[2024-04-22 07:48] LABS: ALBUMIN 3.4 g/dl (3.4-5.0); CALCIUM 9.2 mg/dL (8.5-10.1)
[2024-04-22 07:49] LABS: BLOOD UREA NITROGEN 16.3 mg/dL (7-18)
[2024-04-22 07:51] LABS: CREATININE 1.3 mg/dL (0.55-1.3)
[2024-04-22 07:53] LABS: BILIRUBIN,TOTAL 0.6 mg/dL (0.2-1); TOT PROT 8.2 g/dl (6.4-8.2)
[2024-04-22] MEDS: INSULIN ASPART SLIDING SCALE (NOVOLOG) 1 VIAL SQ SCH ×2 (08:00→18:22)
[2024-04-22] MEDS: INSULIN (LEVEMIR) 100 UNITS/ML UNITS SQ SCH (08:00)
[2024-04-22] MEDS: TAMSULOSIN HCL 0.4 MG CAP PO SCH (09:00)
[2024-04-22] MEDS ORDERED: INSULIN (LEVEMIR) 100 UNITS/ML UNITS SQ ONE (09:16)
[2024-04-22] MEDS ORDERED: INSULIN ASPART SLIDING SCALE (NOVOLOG) 1 VIAL SQ ONE ×2 (09:16→21:40)
[2024-04-22] MEDS: PIPERACILLIN/TAZOB 2.25 GM 2.25 GM/50 ML BAG IVPB SCH (10:00)
[2024-04-22] MEDS: ENOXAPARIN NA (PORCINE) 40 MG/0.4 ML DISP.SYRIN SQ SCH (10:20)
[2024-04-22] MEDS: amLODIPine BESYLATE 10 MG TABLET (FP) PO SCH (10:25)
[2024-04-22] MEDS: FAMOTIDINE 20 MG TABLET PO SCH (10:25)
[2024-04-22] MEDS: SODIUM ZIRCONIUM CYCLOSILICATE (LOKELMA) 10 GM PACKET PO SCH (11:00)
[2024-04-22] MEDS ORDERED: FAMOTIDINE 20 MG TABLET ONE (11:09)
[2024-04-22] MEDS ORDERED: amLODIPine BESYLATE 10 MG TABLET (FP) ONE (11:09)
[2024-04-22] MEDS ORDERED: SODIUM ZIRCONIUM CYCLOSILICATE (LOKELMA) 10 GM PACKET ONE (11:09)
[2024-04-22] MEDS ORDERED: TAMSULOSIN HCL 0.4 MG CAP ONE (11:10)
[2024-04-22] MEDS ORDERED: PIPERACILLIN/TAZOB 2.25 GM 2.25 GM/50 ML BAG IVPB ONE ×2 (11:10→17:55)
[2024-04-22] MEDS ORDERED: ENOXAPARIN NA (PORCINE) 40 MG/0.4 ML DISP.SYRIN SQ ONE (11:10)
[2024-04-22] MEDS ORDERED: INSULIN (LEVEMIR) 100 UNITS/ML UNITS SQ SCH (12:31)
[2024-04-22] MEDS ORDERED: ALBUTEROL SO4 2.5/IPRATROPIUM 0.5 INH SOL 3 ML VIAL.NEB. NEB ONE ×3 (13:08→20:58)
[2024-04-22] MEDS: BUDESONIDE/FORMOTEROL FUMARATE 160-4.5 MCG (10.3 GM INHALER) IH SCH (13:16)
[2024-04-22] MEDS: ALBUTEROL SO4 2.5/IPRATROPIUM 0.5 INH SOL 3 ML VIAL.NEB. NEB SCH (13:17)
[2024-04-22] MEDS ORDERED: ACETAMINOPHEN 325 MG TABLET (FP) ONE (13:34)
[2024-04-22] MEDS: ACETAMINOPHEN 325 MG TABLET (FP) PO PRN (13:36)
[2024-04-22] MEDS: PIPERACILLIN/TAZOB 3.375 GM 50 ML IVPB SCH (18:17)
[2024-04-22] MEDS: MELATONIN 5 MG TABLETS PO SCH (21:01)
[2024-04-22] MEDS: ATORVASTATIN CA 40 MG TABLET (FP) PO SCH (21:01)
[2024-04-22] MEDS: MIRTAZAPINE 15 MG TABLET (FP) PO SCH (21:02)
[2024-04-22] MEDS ORDERED: INSULIN GLARGINE (LANTUS) 100 UNITS/ML UNITS SQ SCH (21:50)
[2024-04-22] MEDS ORDERED: INSULIN GLARGINE (LANTUS) 100 UNITS/ML UNITS SQ ONE (22:10)
[2024-04-22] MEDS: INSULIN GLARGINE (LANTUS) 100 UNITS/ML UNITS SQ SCH (22:10)
[2024-04-23] MEDS ORDERED: methylPREDNISolone NA SUCC 40 MG/1 ML VIAL ONE ×2 (01:35→10:01)
[2024-04-23] MEDS ORDERED: PIPERACILLIN/TAZOB 3.375 GM 3.375 GM/50 ML BAG IVPB ONE ×2 (01:35→10:01)
[2024-04-23] MEDS ORDERED: FUROSEMIDE 40 MG/4 ML INJECTABLE VIAL ONE (05:43)
[2024-04-23] MEDS: FUROSEMIDE 40 MG/4 ML INJECTABLE VIAL IVPUSH SCH (05:44)
[2024-04-23] MEDS ORDERED: methylPREDNISolone NA SUCC 40 MG/1 ML VIAL IVPUSH SCH (06:00)
[2024-04-23 06:53] LABS: POTASSIUM 4.7 mmol/L (3.5-5.1)
[2024-04-23 06:57] LABS: ALBUMIN 3.2 g/dl (3.4-5.0); BLOOD UREA NITROGEN 33.4 mg/dL (7-18); CALCIUM 9.3 mg/dL (8.5-10.1)
[2024-04-23 06:58] LABS: MAGNESIUM 1.9 mg/dL (1.8-2.4)
[2024-04-23 07:00] LABS: CREATININE 1.7 mg/dL (0.55-1.3); PHOSPHOROUS 3.6 mg/dL (2.5-4.9)
[2024-04-23 07:02] LABS: BILIRUBIN,TOTAL 0.8 mg/dL (0.2-1); TOT PROT 7.8 g/dl (6.4-8.2)
[2024-04-23 07:23] LABS: HEMATOCRIT 38.2 % (34.1-44.9); HEMOGLOBIN 11.6 g/dL (11.2-15.7); MCHC 30.4 g/dl (32.2-35.5); MEAN CELL VOLUME 91.8 fl (79.4-94.8); MEAN PLT VOLUME 10.8 fl (9.4-12.3); PLATELET COUNT # 237 x10^3/uL (182-369); RDW 13.8 % (12.4-16.4)
[2024-04-23] MEDS ORDERED: TAMSULOSIN HCL 0.4 MG CAP ONE ×2 (08:08→08:32)
[2024-04-23] MEDS ORDERED: ALBUTEROL SO4 2.5/IPRATROPIUM 0.5 INH SOL 3 ML VIAL.NEB. NEB ONE ×2 (08:08→13:14)
[2024-04-23] MEDS ORDERED: INSULIN GLARGINE (LANTUS) 100 UNITS/ML UNITS SQ ONE (08:35)
[2024-04-23] MEDS ORDERED: POLYETHYLENE GLYCOL (HEALTHYLAX) 3350 17 GM PACKET ONE (10:00)
[2024-04-23] MEDS ORDERED: SODIUM ZIRCONIUM CYCLOSILICATE (LOKELMA) 10 GM PACKET ONE (10:00)
[2024-04-23] MEDS ORDERED: FAMOTIDINE 20 MG TABLET ONE (10:00)
[2024-04-23] MEDS ORDERED: amLODIPine BESYLATE 10 MG TABLET (FP) ONE (10:00)
[2024-04-23] MEDS ORDERED: ENOXAPARIN NA (PORCINE) 40 MG/0.4 ML DISP.SYRIN SQ ONE (10:01)
[2024-04-23] MEDS: POLYETHYLENE GLYCOL (HEALTHYLAX) 3350 17 GM PACKET PO SCH (10:29)
[2024-04-23] MEDS: INSULIN GLARGINE (LANTUS) 100 UNITS/ML UNITS SQ SCH (21:23)
[2024-04-24 06:46] LABS: ABSOLUTE IMMATURE GRANULOCYTES 0.04 x10^3/uL (0.0-0.031); BASOPHILS # 0.01 x10^3/uL (0.01-0.08); HEMATOCRIT 34.5 % (34.1-44.9); HEMOGLOBIN 10.5 g/dL (11.2-15.7); MCHC 30.4 g/dl (32.2-35.5); MEAN CELL VOLUME 90.6 fl (79.4-94.8); MEAN PLT VOLUME 10.4 fl (9.4-12.3); MONOCYTE # 0.75 x10^3/uL (0.24-0.86); MONOCYTE % 6.9 % (4.7-12.5); PLATELET COUNT # 221 x10^3/uL (182-369); RDW 13.6 % (12.4-16.4)
[2024-04-24 07:10] LABS: POTASSIUM 3.7 mmol/L (3.5-5.1)
[2024-04-24 07:13] LABS: BLOOD UREA NITROGEN 41.6 mg/dL (7-18); CALCIUM 8.9 mg/dL (8.5-10.1)
[2024-04-24 07:14] LABS: ALBUMIN 2.9 g/dl (3.4-5.0); MAGNESIUM 2.1 mg/dL (1.8-2.4)
[2024-04-24 07:17] LABS: CREATININE 1.6 mg/dL (0.55-1.3); PHOSPHOROUS 3.3 mg/dL (2.5-4.9)
[2024-04-24 07:18] LABS: BILIRUBIN,TOTAL 0.5 mg/dL (0.2-1); TOT PROT 6.9 g/dl (6.4-8.2)
[2024-04-24] MEDS ORDERED: INSULIN ASPART SLIDING SCALE (NOVOLOG) 1 VIAL SQ ONE (09:30)
[2024-04-24] MEDS: methylPREDNISolone NA SUCC 40 MG/1 ML VIAL IVPUSH SCH (10:01)
[2024-04-24] MEDS: FUROSEMIDE 40 MG/4 ML INJECTABLE VIAL IVPUSH SCH (10:02)
[2024-04-24] MEDS ORDERED: ALBUTEROL SO4 2.5/IPRATROPIUM 0.5 INH SOL 3 ML VIAL.NEB. NEB PRN (11:33)
[2024-04-24] MEDS: ALBUTEROL SO4 2.5/IPRATROPIUM 0.5 INH SOL 3 ML VIAL.NEB. NEB SCH ×2 (11:40→15:04)
[2024-04-24] MEDS ORDERED: ALBUTEROL SO4 2.5/IPRATROPIUM 0.5 INH SOL 3 ML VIAL.NEB. NEB SCH (11:45)
[2024-04-24] MEDS: guaiFENesin 600 MG TABLET.ER (FP) PO SCH (13:10)
[2024-04-24] MEDS: guaiFENesin 200 MG/10 ML 10 ML UNIT-DOSE CUPS PO PRN (13:10)
[2024-04-24] MEDS: BENZOCAINE/MENTH/CETYLPYRD CL 1 EACH LOZENGE MM PRN (13:11)
[2024-04-24] MEDS: INSULIN ASPART SLIDING SCALE (NOVOLOG) 1 VIAL SQ SCH (17:25)
[2024-04-25 07:13] LABS: ABSOLUTE IMMATURE GRANULOCYTES 0.06 x10^3/uL (0.0-0.031); BASOPHILS # 0.01 x10^3/uL (0.01-0.08); HEMATOCRIT 36.4 % (34.1-44.9); HEMOGLOBIN 10.9 g/dL (11.2-15.7); MCHC 29.9 g/dl (32.2-35.5); MEAN CELL VOLUME 90.8 fl (79.4-94.8); MONOCYTE # 0.84 x10^3/uL (0.24-0.86); MONOCYTE % 7.7 % (4.7-12.5); PLATELET COUNT # 219 x10^3/uL (182-369); RDW 13.5 % (12.4-16.4)
[2024-04-25 07:32] LABS: POTASSIUM 3.8 mmol/L (3.5-5.1)
[2024-04-25 07:52] LABS: CALCIUM 8.8 mg/dL (8.5-10.1)
[2024-04-25 07:53] LABS: BLOOD UREA NITROGEN 44.3 mg/dL (7-18); MAGNESIUM 2.2 mg/dL (1.8-2.4)
[2024-04-25 07:56] LABS: BILIRUBIN,TOTAL 0.7 mg/dL (0.2-1); CREATININE 1.7 mg/dL (0.55-1.3); PHOSPHOROUS 3.6 mg/dL (2.5-4.9)
[2024-04-25] MEDS ORDERED: LEVALBUTEROL HCL 0.31 MG/3 ML VIAL.NEB IH PRN (11:42)
[2024-04-25 14:18] VITALS: BMI 36.3
[2024-04-25] MEDS: LEVALBUTEROL HCL 0.63 MG/3 ML VIAL.NEB. IH SCH (15:36)
[2024-04-26] MEDS: PIPERACILLIN/TAZOB 2.25 GM 2.25 GM in DEXTROSE 5%-WATER - 50 ML IVPB SCH (07:09)
[2024-04-26 07:31] LABS: HEMATOCRIT 34.9 % (34.1-44.9); HEMOGLOBIN 10.3 g/dL (11.2-15.7); MCHC 29.5 g/dl (32.2-35.5); MEAN CELL VOLUME 91.6 fl (79.4-94.8); MEAN PLT VOLUME 11.4 fl (9.4-12.3); PLATELET COUNT # 216 x10^3/uL (182-369); RDW 13.3 % (12.4-16.4)
[2024-04-26 07:56] LABS: ALBUMIN 2.9 g/dl (3.4-5.0); BLOOD UREA NITROGEN 45.5 mg/dL (7-18); CALCIUM 8.4 mg/dL (8.5-10.1)
[2024-04-26 07:59] LABS: PHOSPHOROUS 3.5 mg/dL (2.5-4.9)
[2024-04-26 08:01] LABS: BILIRUBIN,TOTAL 0.6 mg/dL (0.2-1); TOT PROT 6.8 g/dl (6.4-8.2)
[2024-04-26] MEDS: METOPROLOL TARTRATE 25 MG TABLET (FP) PO SCH (13:15)
[2024-04-27 08:08] LABS: ALBUMIN 2.8 g/dl (3.4-5.0)
[2024-04-27 08:09] LABS: MAGNESIUM 2.4 mg/dL (1.8-2.4)
[2024-04-27 08:12] LABS: CREATININE 1.5 mg/dL (0.55-1.3); PHOSPHOROUS 3.8 mg/dL (2.5-4.9)
[2024-04-27 08:13] LABS: BILIRUBIN,TOTAL 0.6 mg/dL (0.2-1)
[2024-04-27 10:38] LABS: HEMATOCRIT 37.2 % (34.1-44.9); HEMOGLOBIN 11.3 g/dL (11.2-15.7); MCHC 30.4 g/dl (32.2-35.5); MEAN CELL VOLUME 91.4 fl (79.4-94.8); PLATELET COUNT # 214 x10^3/uL (182-369); RDW 13.6 % (12.4-16.4)
[2024-04-27] MEDS: INSULIN (NOVOLOG) ASPART 100 UNITS/ML 10ML VIAL SQ SCH (11:39)
[2024-04-27 18:28] VITALS: RESP 18
[2024-04-28] MEDS ORDERED: guaiFENesin 200 MG/10 ML 10 ML UNIT-DOSE CUPS PO PRN (08:01)
[2024-04-28] MEDS ORDERED: LEVALBUTEROL HCL 0.31 MG/3 ML VIAL.NEB IH PRN (08:01)
[2024-04-28] MEDS ORDERED: BENZOCAINE/MENTH/CETYLPYRD CL 1 EACH LOZENGE MM PRN (08:01)
[2024-04-28 08:02] LABS: HEMATOCRIT 37.9 % (34.1-44.9); HEMOGLOBIN 11.2 g/dL (11.2-15.7); MCHC 29.6 g/dl (32.2-35.5); MEAN CELL VOLUME 91.8 fl (79.4-94.8); MEAN PLT VOLUME 10.6 fl (9.4-12.3); PLATELET COUNT # 235 x10^3/uL (182-369); RDW 13.5 % (12.4-16.4)
[2024-04-28 08:21] LABS: POTASSIUM 4.1 mmol/L (3.5-5.1)
[2024-04-28 08:28] LABS: BLOOD UREA NITROGEN 38.6 mg/dL (7-18); MAGNESIUM 2.4 mg/dL (1.8-2.4)
[2024-04-28 08:31] LABS: CREATININE 1.3 mg/dL (0.55-1.3); PHOSPHOROUS 4.2 mg/dL (2.5-4.9)
[2024-04-28] MEDS: TAMSULOSIN HCL 0.4 MG CAP PO SCH (09:03)
[2024-04-28] MEDS: guaiFENesin 600 MG TABLET.ER (FP) PO SCH (09:06)
[2024-04-28] MEDS: predniSONE 20 MG TABLET (UD) PO SCH (09:06)
[2024-04-28] MEDS: FAMOTIDINE 20 MG TABLET PO SCH (09:06)
[2024-04-28] MEDS: FUROSEMIDE 40 MG TABLET (FP) PO SCH (09:07)
[2024-04-28] MEDS: METOPROLOL TARTRATE 25 MG TABLET (FP) PO SCH (09:07)
[2024-04-28] MEDS: PIPERACILLIN/TAZOB 3.375 GM 50 ML IVPB SCH (09:11)
[2024-04-28] MEDS: POLYETHYLENE GLYCOL (HEALTHYLAX) 3350 17 GM PACKET PO SCH (09:12)
[2024-04-28] MEDS ORDERED: predniSONE 20 MG TABLET (UD) PO SCH (10:00)
[2024-04-28] MEDS ORDERED: FUROSEMIDE 40 MG TABLET (FP) PO SCH (10:00)
[2024-04-28] MEDS: INSULIN ASPART SLIDING SCALE (NOVOLOG) 1 VIAL SQ SCH (11:51)
[2024-04-28] MEDS: INSULIN (NOVOLOG) ASPART 100 UNITS/ML 10ML VIAL SQ SCH (11:51)
[2024-04-28] MEDS: BUDESONIDE/FORMOTEROL FUMARATE 160-4.5 MCG (10.3 GM INHALER) IH SCH (12:47)
[2024-04-28] MEDS: LEVALBUTEROL HCL 0.63 MG/3 ML VIAL.NEB. IH SCH (14:10)
[2024-04-28] MEDS: GABAPENTIN 100 MG CAPSULE PO SCH (14:18)
[2024-04-28] MEDS: INSULIN GLARGINE (LANTUS) 100 UNITS/ML UNITS SQ SCH (21:16)
[2024-04-28] MEDS: MELATONIN 5 MG TABLETS PO SCH (21:17)
[2024-04-28] MEDS: MIRTAZAPINE 15 MG TABLET (FP) PO SCH (21:18)
[2024-04-28] MEDS: ATORVASTATIN CA 40 MG TABLET (FP) PO SCH (21:18)
[2024-04-28] MEDS: ACETAMINOPHEN 325 MG TABLET (FP) PO PRN (21:26)
[2024-04-29 07:51] LABS: BASOPHILS # 0.01 x10^3/uL (0.01-0.08); EOSINOPHIL % 0.1 % (0.7-5.8); EOSINOPHILS # 0.01 x10^3/uL (0.04-0.36); HEMATOCRIT 37.4 % (34.1-44.9); HEMOGLOBIN 10.9 g/dL (11.2-15.7); MCHC 29.1 g/dl (32.2-35.5); MEAN PLT VOLUME 10.9 fl (9.4-12.3); MONOCYTE # 0.75 x10^3/uL (0.24-0.86); MONOCYTE % 6.4 % (4.7-12.5); PLATELET COUNT # 243 x10^3/uL (182-369); RDW 13.6 % (12.4-16.4)
[2024-04-29 08:15] LABS: POTASSIUM 4.3 mmol/L (3.5-5.1)
[2024-04-29 08:32] LABS: BLOOD UREA NITROGEN 39.1 mg/dL (7-18)
[2024-04-29 08:33] LABS: ALBUMIN 2.7 g/dl (3.4-5.0); MAGNESIUM 2.3 mg/dL (1.8-2.4)
[2024-04-29 08:35] LABS: CREATININE 1.4 mg/dL (0.55-1.3)
[2024-04-29 08:37] LABS: BILIRUBIN,TOTAL 0.6 mg/dL (0.2-1)
[2024-04-29 08:38] LABS: TOT PROT 6.6 g/dl (6.4-8.2)
[2024-04-29 18:40] VITALS: BP 129/72; PULSE 77; TEMP 99.2
[2024-04-29 20:04] LABS: GLUCOSE,RANDOM 408 mg/dL (74-106)
== END 2024-04-29 20:43 | DRG 291 ==
LOC: JER 19:42 → JERBED 22:30 → OBSVTOIN 04-22 02:27 → J2W 04-23 14:14 → J7W 04-27 23:37 → UNDODISIN 04-29 18:12
PROVIDERS: ADMIT Internal Medicine; ATTEND Physician Assistant
DX: I13.0 Hypertensive heart and chronic kidney disease with heart failure and stage 1 through stage 4 chronic kidney disease, or unspecified chronic kidney disease (principal); I50.43 Acute on chronic combined systolic (congestive) and diastolic (congestive) heart failure; J69.0 Pneumonitis due to inhalation of food and vomit; J96.21 Acute and chronic respiratory failure with hypoxia; J96.22 Acute and chronic respiratory failure with hypercapnia; J44.1 Chronic obstructive pulmonary disease with (acute) exacerbation; E87.29 Other acidosis; N17.9 Acute kidney failure, unspecified; J44.0 Chronic obstructive pulmonary disease with (acute) lower respiratory infection; I47.20 Ventricular tachycardia, unspecified; E44.1 Mild protein-calorie malnutrition; E11.42 Type 2 diabetes mellitus with diabetic polyneuropathy; N18.30 Chronic kidney disease, stage 3 unspecified; I48.0 Paroxysmal atrial fibrillation; E78.5 Hyperlipidemia, unspecified; Z99.81 Dependence on supplemental oxygen; E11.22 Type 2 diabetes mellitus with diabetic chronic kidney disease; F32.A Depression, unspecified; G40.909 Epilepsy, unspecified, not intractable, without status epilepticus; K59.00 Constipation, unspecified; E11.65 Type 2 diabetes mellitus with hyperglycemia; R33.9 Retention of urine, unspecified
CPT/HCPCS: 0241U-QW; 36415; 36600; 71045-TC-FY; 71275-TC; 76775-TC; 80048; 80053; 82803; 82947; 82962; 83735; 83880; 84100; 84484; 85025; 85027; 85610; 85730; 87481; 93005; 93010; 93306-TC; 94640; 94660; 97161-GP; 99285-25; G0378; Q9967